=== PATIENT | female | born 1930 | race Caucasian/White ===

== ENCOUNTER → 2016-08-29 | Outpatient (CLI) | payer MEDICARE, OTHER | END | disposition home or self-care (01) | LOC: YCHH 08:22 | PROVIDERS: ATTEND Obstetrics & Gynecology | DX: D51.8 Other vitamin B12 deficiency anemias (principal); E03.9 Hypothyroidism, unspecified; J44.9 Chronic obstructive pulmonary disease, unspecified; I50.9 Heart failure, unspecified ==

== ENCOUNTER 2016-10-27 12:47 | Emergency (ER) | payer MEDICARE, OTHER ==
--- NOTE | 2016-10-27 13:06 | ED.PDOC ---
History of Present Illness - General Chief Complaint: Respiratory Problem Stated Complaint: Shortness of breath Time Seen by Provider: 10/27/16 12:57 Source: patient, RN notes reviewed, Vital Signs reviewed, EMS Exam Limitations: no limitations - History of Present Illness Initial Comments: Patient reports that she has been feeling bad for the past 2 days. Just no energy and sleeping a lot. Noticed her oxygen sat was low, 83%, so she used her O2 during the day when she normally only uses it at night. + cough. Vomited X1. Upper abdominal pain. No fever or chills. Timing/Duration: days - 2 Severity: moderate Activities at Onset: none Possible Cause: occasional episodes Improving Factors: nothing Worsening Factors: nothing Associated Symptoms: cough, weakness Respiratory Risk Factors: no cause identified Allergies/Adverse Reactions: Allergies Guaifenesin [From [place]] Allergy (Verified 06/23/14 08:05) Iron Allergy (Verified 06/23/14 08:05) Morphine [From MS Contin] Allergy (Verified 06/23/14 08:05) Pseudoephedrine [From Dynex] Allergy (Verified 06/23/14 08:05) Home Medications: Ambulatory Orders Aspirin [Aspir-81] 81 mg PO DAILY 09/10/12 Citalopram Hydrobromide [Celexa] 20 mg PO BID 09/10/12 Cyanocobalamin Inj [Vitamin B-12 Inj] 1,000 mcg IM PRN PRN 09/10/12 Esomeprazole [Nexium] 40 mg PO DAILY 09/10/12 Furosemide [Lasix] 20 mg PO DAILY 09/10/12 HYDROcodone 5MG/APAP 325MG [[place] 5/325] 1 ea PO Q6H PRN 09/10/12 Levothyroxine Sodium [Synthroid] 0.05 mg PO DAILY 09/10/12 Methocarbamol [Robaxin] 500 mg PO DAILY 09/10/12 Montelukast Sodium [Singulair] 10 mg PO DAILY 09/10/12 Pramipexole Dihydrochloride [Mirapex] 1 mg PO BID 09/10/12 Solifenacin Succinate [Vesicare] 5 mg PO DAILY 09/10/12 Valsartan [Diovan] 20 mg PO DAILY #0 09/10/12 Acetaminophen W/ Codeine [Tylenol W/ CODEINE #3] 1 ea PO Q4-6H PRN #14 Sulfamethoxazole-Trimethoprim [Bactrim Ds 800-160 mg] 1 tab PO BID #20 tab 02/02 Diclofenac Sodium (Topical) [Voltaren] 1 % TD DAILY PRN 02/27/16 Fluticasone Propionate (Nasal) [Flonase Allergy Relief Ch] 50 mcg NA DAILY 02/26 Metoclopramide Tab [Reglan] 5 mg PO QID PRN 02/27/16 Multiple Vitamins W/ Minerals [Centrum Adults] 1 tab PO DAILY 02/27/16 Potassium Chloride [K-Tab] 10 meq PO DAILY 02/27/16 Sulfa/Trimeth 800/160 (Ds) Tab [Bactrim DS Tab] 1 ea PO BID #20 tab 10/27/16 Review of Systems - Review of Systems Constitutional: States: malaise, weakness. Denies: chills, fever EENTM: States: no symptoms reported Respiratory: States: cough, short of breath Cardiology: States: no symptoms reported. Denies: chest pain, palpitations, syncope Gastrointestinal/Abdominal: States: abdominal pain, vomiting. Denies: diarrhea Genitourinary: States: no symptoms reported Musculoskeletal: States: no symptoms reported Skin: States: no symptoms reported Neurological: States: no symptoms reported Endocrine: States: no symptoms reported Past Medical History (General) - Patient Medical History Hx Seizures: No Hx Stroke: Yes Hx Dementia: No Hx Asthma: No Hx of COPD: Yes Hx Cardiac Disorders: No Hx Congestive Heart Failure: No Hx Pacemaker: No Hx Hypertension: Yes Hx Thyroid Disease: Yes Hx Diabetes: No Hx Gastroesophageal Reflux: No Hx Renal Disease: No Hx Cancer: No Hx of HIV: No Hx Hepatitis C: No Hx MRSA: No Surgical History: other - Vaccination History Hx Tetanus, Diphtheria Vaccination: Yes Hx Influenza Vaccination: Yes Hx Pneumococcal Vaccination: Yes - Social History Hx Tobacco Use: No Hx Chewing Tobacco Use: No Hx Alcohol Use: No Hx Substance Use: No Hx Substance Use Treatment: No Hx Depression: No Hx Physical Abuse: No Hx Emotional Abuse: No Hx Suspected Abuse: No - Female History Patient : Yes Family Medical History - Family History Mother Family History: Unknown Living Status: Physical Exam - Physical Exam General Appearance: Alert, Comfortable, No apparent distress, Well Developed, Well Groomed, Well Hydrated, Well Nourished Neck: non-tender, full range of motion, supple, normal inspection Respiratory: chest non-tender, lungs clear, normal breath sounds, no respiratory distress, no accessory muscle use Cardiovascular/Chest: normal peripheral pulses, regular rate, rhythm, no edema, no gallop, no JVD, no murmur Peripheral Pulses: posterior tibialis,right: 1+, posterior tibialis,left: 1+ Gastrointestinal/Abdominal: normal bowel sounds, soft, tenderness - epigastric Extremity: normal range of motion, non-tender, normal inspection, no pedal edema Neurologic: alert, normal mood/affect, oriented x 3 Skin Exam: normal color, warm/dry Comments: Vital Signs - 24 hr 10/27/16 10/27/16 10/27/16 12:51 13:00 14:34 Temperature 100.5 F H Pulse Rate [ 79 80 Left Radial] Respiratory 18 16 Rate Blood Pressure 144/58 155/80 [Left Arm] O2 Sat by Pulse 91 L 93 L Oximetry Progress - Results/Orders Results/Orders: Laboratory Tests 10/27/16 10/27/16 10/27/16 13:10 13:10 13:10 WBC 5.0 RBC 4.60 Hgb 12.6 Hct 38.6 MCV 83.8 MCH 27.3 MCHC 32.6 L RDW 15.2 H Plt Count 87 L MPV 7.6 Absolute Neuts (auto) 3.80 Absolute Lymphs (auto) 0.60 L Absolute Monos (auto) 0.50 Absolute Eos (auto) 0.00 Absolute Basos (auto) 0.00 Neutrophils % 75.8 Lymphocytes % 12.4 L Monocytes % 10.8 H Eosinophils % 0.3 L Basophils % 0.7 Sodium 135 Potassium 3.8 Chloride 100 L Carbon Dioxide 25 Anion Gap 13.8 BUN 17 Creatinine 0.73 BUN/Creatinine Ratio 23.3 H Random Glucose 109 H Serum Osmolality 272.2 L Calcium 9.2 Total Bilirubin 0.7 AST 23 ALT 26 Alkaline Phosphatase 45 B-Natriuretic Peptide 106.0 H Serum Total Protein 7.3 Albumin 3.9 Globulin 3.4 Albumin/Globulin Ratio 1.1 Amylase 19 L Lipase 22 Urine Color Urine Appearance Urine pH Ur Specific [place] Urine Protein Urine Glucose (UA) Urine Ketones Urine Blood Urine Nitrite Urine Bilirubin Urine Urobilinogen Ur Leukocyte Esterase Urine RBC Urine WBC Ur Epithelial Cells Amorphous Sediment Urine Bacteria 10/27/16 14:25 WBC RBC Hgb Hct MCV MCH MCHC RDW Plt Count MPV Absolute Neuts (auto) Absolute Lymphs (auto) Absolute Monos (auto) Absolute Eos (auto) Absolute Basos (auto) Neutrophils % Lymphocytes % Monocytes % Eosinophils % Basophils % Sodium Potassium Chloride Carbon Dioxide Anion Gap BUN Creatinine BUN/Creatinine Ratio Random Glucose Serum Osmolality Calcium Total Bilirubin AST ALT Alkaline Phosphatase B-Natriuretic Peptide Serum Total Protein Albumin Globulin Albumin/Globulin Ratio Amylase Lipase Urine Color Yellow Urine Appearance Cloudy Urine pH 6.5 Ur Specific [place] 1.020 Urine Protein Trace Urine Glucose (UA) Negative Urine Ketones 15 H Urine Blood Trace-intact H Urine Nitrite Positive H Urine Bilirubin Negative Urine Urobilinogen 1.0 Ur Leukocyte Esterase Trace H Urine RBC 3-5 H Urine WBC 20-30 H Ur Epithelial Cells 1-3 Amorphous Sediment 2+ Urine Bacteria 4+ H - EKG/XRAY/CT XRAY: chest - Enlarged heart and elevated R hemidiaphragm, unchanged from prior Departure - Departure Clinical Impression: UTI (urinary tract infection) Qualifiers: Urinary tract infection type: acute cystitis Hematuria presence: with hematuria Qualified Code(s): N30.01 - Acute cystitis with hematuria Time of Disposition: 14:48 Disposition: Discharge to Home or Self Care Condition: Good Departure Forms: ED Discharge - Pt. Copy, Patient Portal Self Enrollment Instructions: DI for Urinary Tract Infection (UTI) Diet: resume usual diet Activity: increase activity as tolerated Referrals: Mathieu Smiley MD [Primary Care Provider] - 1-2 Weeks Prescriptions: Sulfa/Trimeth 800/160 (Ds) Tab [Bactrim DS Tab] 1 ea PO BID #20 tab Home Medications: Ambulatory Orders Aspirin [Aspir-81] 81 mg PO DAILY 09/10/12 Citalopram Hydrobromide [Celexa] 20 mg PO BID 09/10/12 Cyanocobalamin Inj [Vitamin B-12 Inj] 1,000 mcg IM PRN PRN 09/10/12 Esomeprazole [Nexium] 40 mg PO DAILY 09/10/12 Furosemide [Lasix] 20 mg PO DAILY 09/10/12 HYDROcodone 5MG/APAP 325MG [[place] 5/325] 1 ea PO Q6H PRN 09/10/12 Levothyroxine Sodium [Synthroid] 0.05 mg PO DAILY 09/10/12 Methocarbamol [Robaxin] 500 mg PO DAILY 09/10/12 Montelukast Sodium [Singulair] 10 mg PO DAILY 09/10/12 Pramipexole Dihydrochloride [Mirapex] 1 mg PO BID 09/10/12 Solifenacin Succinate [Vesicare] 5 mg PO DAILY 09/10/12 Valsartan [Diovan] 20 mg PO DAILY #0 09/10/12 Acetaminophen W/ Codeine [Tylenol W/ CODEINE #3] 1 ea PO Q4-6H PRN #14 Sulfamethoxazole-Trimethoprim [Bactrim Ds 800-160 mg] 1 tab PO BID #20 tab 02/02 Diclofenac Sodium (Topical) [Voltaren] 1 % TD DAILY PRN 02/27/16 Fluticasone Propionate (Nasal) [Flonase Allergy Relief Ch] 50 mcg NA DAILY 02/26 Metoclopramide Tab [Reglan] 5 mg PO QID PRN 02/27/16 Multiple Vitamins W/ Minerals [Centrum Adults] 1 tab PO DAILY 02/27/16 Potassium Chloride [K-Tab] 10 meq PO DAILY 02/27/16 Sulfa/Trimeth 800/160 (Ds) Tab [Bactrim DS Tab] 1 ea PO BID #20 tab 10/27/16
[2016-10-27] MEDS ORDERED: ONDANSETRON INJ 4 MG/2 ML VIAL IV ONE (13:09)
[2016-10-27] MEDS ORDERED: ONDANSETRON ODT 8 MG TAB SL ONE (13:53)
--- NOTE | 2016-10-27 14:19 | RAD ---
EXAM DESCRIPTION: Chest,2 Views CLINICAL HISTORY: 86 years Female, cough/SOB/Hypoxia COMPARISON: 02/02/2016 IMPRESSION: The heart remains enlarged, without failure. Calcific plaque in the aortic arch. Elevation of the right hemidiaphragm with right basilar atelectasis again demonstrated. There is no new or confluent airspace consolidation, pleural effusion, or pneumothorax. [place] screws in the right humeral head. Multilevel degenerative changes in the thoracic spine. No acute osseous abnormality. Electronically signed by: Andres Bojorquez MD 10/27/2016 2:19 PM CDT
[2016-10-27] MEDS ORDERED: SULFA/TRIMETH 800/160 (DS) TAB 1 EA TAB PO ONE (14:51)
[2016-10-27 15:01] VITALS: BP 150/72; TEMP 98.2; O2SAT 95
== END 2016-10-27 15:01 | disposition home or self-care (01) ==
LOC: ER 12:47
DX: N30.01 Acute cystitis with hematuria (principal); J44.9 Chronic obstructive pulmonary disease, unspecified; E07.9 Disorder of thyroid, unspecified; I10 Essential (primary) hypertension; Z86.73 Personal history of transient ischemic attack (TIA), and cerebral infarction without residual deficits; Z88.8 Allergy status to other drugs, medicaments and biological substances; Z88.6 Allergy status to analgesic agent; Z79.82 Long term (current) use of aspirin; Z79.899 Other long term (current) drug therapy
CPT/HCPCS: 36415; 71020; 80053; 81001; 82150; 83690; 83880; 85025; 87086; 87088; 87186; J2405

== ENCOUNTER → 2016-11-23 | Outpatient (CLI) | payer MEDICARE, OTHER ==
--- NOTE | 2016-11-24 13:24 | MAM ---
History: Well woman exam. Date of exam: 11/23/2016 Services provided: Bilateral full field digital screening mammography. CAD, the images were reviewed with R2 computer aided detection. FINDINGS: Glandular tissue is scattered glandular contour. Comparison with 2013 exam. Surgical clips left breast. Scattered glandular pattern. No dominant mass, architectural distortion or clustered microcalcification. IMPRESSION: Benign exam Recommendation: Routine annual mammography BIRAD CATEGORY: 2 BENIGN Electronically signed by: Judi Smith MD 11/24/2016 1:24 PM CDT Workstation: [id number]
== END | disposition home or self-care (01) ==
LOC: MAMMO 08:46
PROVIDERS: ATTEND Obstetrics & Gynecology
DX: Z12.31 Encounter for screening mammogram for malignant neoplasm of breast (principal)

== ENCOUNTER → 2016-12-12 | Outpatient (CLI) | payer MEDICARE, OTHER | END | disposition home or self-care (01) | LOC: YCHH 12:07 | PROVIDERS: ATTEND Obstetrics & Gynecology | DX: D51.8 Other vitamin B12 deficiency anemias (principal); D51.9 Vitamin B12 deficiency anemia, unspecified ==

== ENCOUNTER 2016-12-14 13:02 | Emergency (ER) | payer MEDICARE, OTHER ==
--- NOTE | 2016-12-14 14:22 | RAD ---
EXAM DESCRIPTION: Chest,2 Views CLINICAL HISTORY: 86 years, Female, mid chest and back pain approx. t8 fall 1wk ago COMPARISON: October 27, 2016 FINDINGS: Adequate inspiratory effort. Stable chronic elevation right hemidiaphragm. Scattered fibrotic change. Osteopenic bones thoracic spine with mild degenerative change. Mild cardiomegaly. Right shoulder surgery. IMPRESSION: Stable mild chronic lung change and cardiomegaly. Electronically signed by: Jorge L Carranza MD 12/14/2016 2:21 PM CDT
--- NOTE | 2016-12-14 14:52 | ED.PDOC ---
History of Present Illness - General Chief Complaint: Back Pain or Injury Time Seen by Provider: 12/14/16 13:40 Source: patient Exam Limitations: no limitations - History of Present Illness Initial Comments: he patient is an 86-year-old female presenting to the emergency roomone week after a fall. She tripped and fell backwards and landed on her rear end and back. She had multiple areas that were sore over the week that the back pain surrounding approximately T8 and extending around her thorax has been the most persistent. No shortness of breath. No syncope or near syncope. No weakness or numbness of the lower extremities. No changes in sensation. No incontinence. No gross deformity upon exam. She does have some mild paraspinal tenderness in that area. Timing/Duration: 1 week Severity: moderate Improving Factors: immobilization Worsening Factors: movement Associated Symptoms: denies symptoms Allergies/Adverse Reactions: Allergies Guaifenesin [From Dynex] Allergy (Verified 06/23/14 08:05) Iron Allergy (Verified 06/23/14 08:05) Morphine [From MS Contin] Allergy (Verified 06/23/14 08:05) Pseudoephedrine [From Dynex] Allergy (Verified 06/23/14 08:05) Home Medications: Ambulatory Orders Aspirin [Aspir-81] 81 mg PO DAILY 09/10/12 Citalopram Hydrobromide [Celexa] 20 mg PO BID 09/10/12 Cyanocobalamin Inj [Vitamin B-12 Inj] 1,000 mcg IM PRN PRN 09/10/12 Esomeprazole [Nexium] 40 mg PO DAILY 09/10/12 Furosemide [Lasix] 20 mg PO DAILY 09/10/12 HYDROcodone 5MG/APAP 325MG [[place] 5/325] 1 ea PO Q6H PRN 09/10/12 Levothyroxine Sodium [Synthroid] 0.05 mg PO DAILY 09/10/12 Methocarbamol [Robaxin] 500 mg PO DAILY 09/10/12 Montelukast [Singulair] 10 mg PO DAILY 09/10/12 Pramipexole Dihydrochloride [Mirapex] 1 mg PO BID 09/10/12 Solifenacin Succinate [Vesicare] 5 mg PO DAILY 09/10/12 Acetaminophen W/ Codeine [Tylenol W/ CODEINE #3] 1 ea PO Q4-6H PRN #14 Diclofenac Sodium (Topical) [Voltaren] 1 % TD DAILY PRN 02/27/16 Fluticasone Propionate (Nasal) [Flonase Allergy Relief Ch] 50 mcg NA DAILY 02/26 Metoclopramide Tab [Reglan] 5 mg PO QID PRN 02/27/16 Multiple Vitamins W/ Minerals [Centrum Adults] 1 tab PO DAILY 02/27/16 Potassium Chloride [K-Tab] 10 meq PO DAILY 02/27/16 Nitrofurantoin Macrocrystal [Macrodantin] 50 mg PO DAILY 12/14/16 Ranitidine HCl [Ranitidine 75] 150 mg PO BEDTIME 12/14/16 Review of Systems - Review of Systems Review of Systems: 12/14/16 14:52 for changes in systems from their baseline symptoms Constitutional: States: no symptoms reported EENTM: States: no symptoms reported Respiratory: States: no symptoms reported Cardiology: States: no symptoms reported Gastrointestinal/Abdominal: States: no symptoms reported Genitourinary: States: no symptoms reported Musculoskeletal: States: back pain Skin: States: no symptoms reported Neurological: States: no symptoms reported Endocrine: States: no symptoms reported All other Systems: No Change from Baseline Past Medical History (General) - Patient Medical History Hx Seizures: No Hx Stroke: Yes Hx Dementia: No Hx Asthma: No Hx of COPD: Yes Hx Cardiac Disorders: No Hx Congestive Heart Failure: Yes Hx Pacemaker: No Hx Hypertension: Yes Hx Thyroid Disease: Yes Hx Diabetes: No Hx Gastroesophageal Reflux: No Hx Renal Disease: No Hx Cancer: No Hx of HIV: No Hx Hepatitis C: No Hx MRSA: No Surgical History: appendectomy, cholecystectomy - Vaccination History Hx Tetanus, Diphtheria Vaccination: No Hx Influenza Vaccination: Yes Hx Pneumococcal Vaccination: Yes Immunizations Up to Date: Yes - Social History Hx Tobacco Use: No Hx Chewing Tobacco Use: No Hx Alcohol Use: No Hx Substance Use: No Hx Substance Use Treatment: No Hx Depression: No Feels Threatened In Home Enviroment: No Hx Physical Abuse: No Hx Emotional Abuse: No Hx Suspected Abuse: No - Female History Patient is a Female of Child Bearing Age (10 -59 yrs old): No Patient : Yes Family Medical History - Family History Mother Family History: Unknown Living Status: Physical Exam - Physical Exam General Appearance: Alert, Comfortable, No apparent distress Eye Exam: bilateral normal Ears, Nose, Throat: hearing grossly normal, normal ENT inspection, normal pharynx Neck: non-tender, full range of motion, supple Respiratory: no respiratory distress, no accessory muscle use Cardiovascular/Chest: normal peripheral pulses, no edema, other - egular rate Peripheral Pulses: radial,right: 2+, radial,left: 2+, dorsalis pedis,right: 2+, dorsalis pedis,left: 2+ Gastrointestinal/Abdominal: non tender, soft Rectal Exam: deferred Back Exam: no vertebral tenderness, other - the patient does have some mild paraspinal tenderness around T8. No gross defformity. No obvious bruising. Extremity: normal range of motion, non-tender, normal inspection, no pedal edema , normal capillary refill Neurologic: looper operator II-XII nml as tested, no motor/sensory deficits - no change from baseline, alert, normal mood/affect, oriented x 3 Skin Exam: normal color Comments: Vital Signs - 24 hr 12/14/16 13:40 Temperature 97.0 F L Pulse Rate [ 83 Apical] Respiratory 18 Rate Blood Pressure 149/65 [Right Arm] O2 Sat by Pulse 95 Oximetry Progress - Progress Progress: 12/14/16 14:53 the patient is an 86-year-old female presenting to the emergency room secondary to thoracic back pain after a fall 1 week ago. X-ray shows no evidence of significant compression fracture or subluxation. No pneumothorax. No obvious fractures otherwise. She can continue her home pain medications and add Aleve 2 tablets twice daily with food for the next week. A heat pad may provide some relief. She should follow up with her primary care doctor in 1 week. ER warnings were given. - Results/Orders Results/Orders: two-view chest x-ray shows no evidence of acute bony pathology of the thoracic spine. No evidence of acute pulmonary pathology. Departure - Departure Clinical Impression: Acute upper back pain Disposition: Discharge to Home or Self Care Condition: Fair Departure Forms: ED Discharge - Pt. Copy, Patient Portal Self Enrollment Instructions: Back Pain (Alternative Therapy) Diet: regular diet Activity: increase activity as tolerated Referrals: Mathieu Smiley MD [Primary Care Provider] - 1-2 Weeks Home Medications: Ambulatory Orders Aspirin [Aspir-81] 81 mg PO DAILY 09/10/12 Citalopram Hydrobromide [Celexa] 20 mg PO BID 09/10/12 Cyanocobalamin Inj [Vitamin B-12 Inj] 1,000 mcg IM PRN PRN 09/10/12 Esomeprazole [Nexium] 40 mg PO DAILY 09/10/12 Furosemide [Lasix] 20 mg PO DAILY 09/10/12 HYDROcodone 5MG/APAP 325MG [[place] 5/325] 1 ea PO Q6H PRN 09/10/12 Levothyroxine Sodium [Synthroid] 0.05 mg PO DAILY 09/10/12 Methocarbamol [Robaxin] 500 mg PO DAILY 09/10/12 Montelukast [Singulair] 10 mg PO DAILY 09/10/12 Pramipexole Dihydrochloride [Mirapex] 1 mg PO BID 09/10/12 Solifenacin Succinate [Vesicare] 5 mg PO DAILY 09/10/12 Acetaminophen W/ Codeine [Tylenol W/ CODEINE #3] 1 ea PO Q4-6H PRN #14 Diclofenac Sodium (Topical) [Voltaren] 1 % TD DAILY PRN 02/27/16 Fluticasone Propionate (Nasal) [Flonase Allergy Relief Ch] 50 mcg NA DAILY 02/26 Metoclopramide Tab [Reglan] 5 mg PO QID PRN 02/27/16 Multiple Vitamins W/ Minerals [Centrum Adults] 1 tab PO DAILY 02/27/16 Potassium Chloride [K-Tab] 10 meq PO DAILY 02/27/16 Nitrofurantoin Macrocrystal [Macrodantin] 50 mg PO DAILY 12/14/16 Ranitidine HCl [Ranitidine 75] 150 mg PO BEDTIME 12/14/16 Additional Instructions: the patient is an 86-year-old female presenting to the emergency room secondary to thoracic back pain after a fall 1 week ago. X-ray shows no evidence of significant compression fracture or subluxation. No pneumothorax. No obvious fractures otherwise. She can continue her home pain medications and add Aleve 2 tablets twice daily with food for the next week. A heat pad may provide some relief. She should follow up with her primary care doctor in 1 week. ER warnings were given.
[2016-12-14 15:03] VITALS: BP 121/70; TEMP 98.1; O2SAT 96
== END 2016-12-14 15:05 | disposition home or self-care (01) ==
LOC: ER 13:02
DX: M54.6 Pain in thoracic spine (principal); J44.9 Chronic obstructive pulmonary disease, unspecified; I50.9 Heart failure, unspecified; E07.9 Disorder of thyroid, unspecified; I10 Essential (primary) hypertension; Z86.73 Personal history of transient ischemic attack (TIA), and cerebral infarction without residual deficits; Z79.82 Long term (current) use of aspirin; Z79.899 Other long term (current) drug therapy; Z88.5 Allergy status to narcotic agent; Z88.8 Allergy status to other drugs, medicaments and biological substances

== ENCOUNTER 2016-12-25 13:55 | Emergency (ER) | payer MEDICARE, OTHER ==
[2016-12-25] MEDS ORDERED: SUCRALFATE 1 GM/10 ML 1 GM UD PO ONE (14:09)
[2016-12-25] MEDS ORDERED: LIDOCAINE VIS-MYLANTA 30 ML UD PO ONE (14:09)
[2016-12-25] MEDS ORDERED: PANTOPRAZOLE SODIUM IV 40 MG VIAL IV ONE (14:09)
--- NOTE | 2016-12-25 14:45 | RAD ---
EXAM DESCRIPTION: Chest,2 Views CLINICAL HISTORY: epigastric pain COMPARISON: December 14, 2016 FINDINGS: Cardiac silhouette is within normal limits. There is no focal parenchymal or pleural disease. Eventration of the right hemidiaphragm is unchanged compared with the prior exam. EKG leads project over the chest. There is atherosclerosis. Loss of the normal vertebral body height of a mid thoracic vertebral body is unchanged compared with the prior examination. IMPRESSION: No evidence of acute cardiopulmonary disease. Electronically signed by: Sky Hays MD 12/25/2016 2:44 PM CDT
--- NOTE | 2016-12-25 14:46 | RAD ---
EXAM DESCRIPTION: Abdomen Flat Upright CLINICAL HISTORY: epigastric pain COMPARISON: None FINDINGS: Supine and upright images of the abdomen were submitted. EKG leads project over the abdomen. Surgical clips in the right upper quadrant compatible with prior cholecystectomy. Right hemidiaphragm contour is unchanged compared with prior chest radiograph. There is evidence of prior lumbar fusion. There is scoliosis. There is atherosclerosis. There is no free air in the abdomen. There is no evidence of bowel obstruction. IMPRESSION: No acute abnormalities. Electronically signed by: Sky Hays MD 12/25/2016 2:45 PM CDT
[2016-12-25] MEDS ORDERED: MAGNESIUM HYDROXIDE 30 ML UD PO ONE (15:31)
[2016-12-25] MEDS ORDERED: ACETAMINOPHEN-CAFF-BUTALBITAL 1 EA TAB PO ONE (15:32)
--- NOTE | 2016-12-25 15:35 | ED.PDOC ---
History of Present Illness - General Chief Complaint: Chest Pain/IN Stated Complaint: Chest discomfort Time Seen by Provider: 12/25/16 14:00 Source: patient Exam Limitations: no limitations - History of Present Illness Initial Comments: the patient is an 86-year-old female presenting to the emergency room secondary to midthoracic pain along with epigastric discomfort. Additionally she has had about a week's worth of constipation due to pain medications required for her back from a recent fall. The patient has run out of her Nexium as her insurance company has refused to allow them to be refilled. The patient has been taking Aleve for her back and the combination of running out of her stomach medications and taking the anti-inflammatory appears to have upset her stomach. She had one episode of vomiting yesterday. She has epigastric pain on palpation today. No rebound or peritoneal signs. The vomitus did not contain blood yesterday. No melanotic stools according to her. She is mainly constipated. Timing/Duration: 24 hours Severity: moderate Improving Factors: nothing Worsening Factors: nothing Associated Symptoms: loss of appetite, nausea/vomiting Allergies/Adverse Reactions: Allergies Guaifenesin [From Dynex] Allergy (Verified 12/25/16 14:37) Morphine [From MS Contin] Allergy (Verified 12/25/16 14:37) Pseudoephedrine [From Dynex] Allergy (Verified 12/25/16 14:37) Iron Adverse Reaction (Verified 12/25/16 14:37) Home Medications: Ambulatory Orders Aspirin [Aspir-81] 81 mg PO DAILY 09/10/12 Citalopram Hydrobromide [Celexa] 20 mg PO BID 09/10/12 Cyanocobalamin Inj [Vitamin B-12 Inj] 1,000 mcg IM PRN PRN 09/10/12 Esomeprazole [Nexium] 40 mg PO DAILY 09/10/12 Furosemide [Lasix] 20 mg PO DAILY 09/10/12 HYDROcodone 5MG/APAP 325MG [[place] 5/325] 1 ea PO Q6H PRN 09/10/12 Levothyroxine Sodium [Synthroid] 0.05 mg PO DAILY 09/10/12 Methocarbamol [Robaxin] 500 mg PO DAILY 09/10/12 Montelukast [Singulair] 10 mg PO DAILY 09/10/12 Pramipexole Dihydrochloride [Mirapex] 1 mg PO BID 09/10/12 Solifenacin Succinate [Vesicare] 5 mg PO DAILY 09/10/12 Acetaminophen W/ Codeine [Tylenol W/ CODEINE #3] 1 ea PO Q4-6H PRN #14 Diclofenac Sodium (Topical) [Voltaren] 1 % TD DAILY PRN 02/27/16 Fluticasone Propionate (Nasal) [Flonase Allergy Relief Ch] 50 mcg NA DAILY 02/26 Metoclopramide Tab [Reglan] 5 mg PO QID PRN 02/27/16 Multiple Vitamins W/ Minerals [Centrum Adults] 1 tab PO DAILY 02/27/16 Potassium Chloride [K-Tab] 10 meq PO DAILY 02/27/16 Nitrofurantoin Macrocrystal [Macrodantin] 50 mg PO DAILY 12/14/16 Ranitidine HCl [Ranitidine 75] 150 mg PO BEDTIME 12/14/16 Ddphyyrqqcmgv-Szal-Lmmhspchml [Fioricet] 1 ea PO Q8H PRN #21 tab 12/25/16 Famotidine 20 mg PO BID #120 tab 12/25/16 Sucralfate Tab [Carafate Tab] 1 gm PO QID #60 tab 12/25/16 Review of Systems - Review of Systems Constitutional: States: no symptoms reported EENTM: States: no symptoms reported Respiratory: States: no symptoms reported Cardiology: States: no symptoms reported Gastrointestinal/Abdominal: States: abdominal pain, constipation, nausea, vomiting Genitourinary: States: no symptoms reported Musculoskeletal: States: back pain Skin: States: no symptoms reported Neurological: States: no symptoms reported Endocrine: States: no symptoms reported All other Systems: No Change from Baseline Past Medical History (General) - Patient Medical History Hx Seizures: No Hx Stroke: Yes Hx Dementia: No Hx Asthma: No Hx of COPD: Yes Hx Cardiac Disorders: No Hx Congestive Heart Failure: Yes Hx Pacemaker: No Hx Hypertension: Yes Hx Thyroid Disease: Yes Hx Diabetes: No Hx Gastroesophageal Reflux: Yes Hx Renal Disease: No Hx Cancer: No Hx of HIV: No Hx Hepatitis C: No Hx MRSA: No Surgical History: appendectomy, cholecystectomy - Vaccination History Hx Tetanus, Diphtheria Vaccination: No Hx Influenza Vaccination: Yes - 2016 Hx Pneumococcal Vaccination: Yes - Social History Hx Tobacco Use: No Hx Chewing Tobacco Use: No Hx Alcohol Use: No Hx Substance Use: No Hx Substance Use Treatment: No Hx Depression: No Hx Physical Abuse: No Hx Emotional Abuse: No Hx Suspected Abuse: No - Female History Patient is a Female of Child Bearing Age (10 -59 yrs old): No Patient : Yes Family Medical History - Family History Mother Family History: Unknown Living Status: Hx Family Hypertension: Yes Physical Exam - Physical Exam General Appearance: Alert, Comfortable, No apparent distress Eye Exam: bilateral normal Ears, Nose, Throat: hearing grossly normal, normal ENT inspection, normal pharynx Neck: non-tender, full range of motion, supple Respiratory: chest non-tender, lungs clear, normal breath sounds, no respiratory distress, no accessory muscle use Cardiovascular/Chest: normal peripheral pulses, no edema, other - regular rate Peripheral Pulses: radial,right: 2+, radial,left: 2+, dorsalis pedis,right: 2+, dorsalis pedis,left: 2+ Gastrointestinal/Abdominal: soft, other - ild epigastric discomfort palpation. No rebound or peritoneal signs. No pulsatile palpable masses. Rectal Exam: deferred Back Exam: other - the patient still has some paraspinal tenderness adjacent to approximately T8 bilaterally. No visible deformity. No bruising. 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 This appears to be most likely due to running out of her Nexium as well as having to take anti-inflammatories for her back pain. The patient needs to hold on the Motrin and Aleve for now. She will be written for Fioricet for pain control. If her back pain persists more than another week then she needs to discuss with her primary care doctor obtaining a MRI of her thoracic spine. she will be written for Pepcid twice daily to help control her gastritis. She will also be written for Carafate for the next week. Maalox can be used additionally as needed. She does have some significant constipation on x-ray and is receiving a dose of milk of magnesia here today. She needs to keep well-hydrated. ER warnings were given for any significant worsening. Lab work looks reassuring. - Results/Orders Results/Orders: Laboratory Tests 12/25/16 12/25/16 12/25/16 14:10 14:10 14:10 WBC 4.1 L RBC 4.62 Hgb 12.6 Hct 38.7 MCV 83.7 MCH 27.3 MCHC 32.7 L RDW 15.5 H Plt Count 134 MPV 7.5 Absolute Neuts (auto) 2.30 Absolute Lymphs (auto) 1.30 Absolute Monos (auto) 0.40 Absolute Eos (auto) 0.10 Absolute Basos (auto) 0.00 Neutrophils % 56.1 Lymphocytes % 31.5 Monocytes % 8.7 Eosinophils % 2.6 Basophils % 1.1 PT 10.6 INR 0.940 PTT (SP) 39.3 H Sodium 141 Potassium 3.8 Chloride 103 Carbon Dioxide 29 Anion Gap 12.8 BUN 18 Creatinine 0.92 BUN/Creatinine Ratio 19.6 Random Glucose 119 H Serum Osmolality 284.3 Calcium 9.7 Magnesium 2.0 Total Bilirubin 0.6 AST 31 ALT 26 Alkaline Phosphatase 78 Creatine Kinase 42 CK-MB (CK-2) 2.0 CK-MB (CK-2) % Not Reportable Troponin I 0.03 B-Natriuretic Peptide 155.0 H Serum Total Protein 7.7 Albumin 4.1 Globulin 3.6 H Albumin/Globulin Ratio 1.1 Amylase 19 L Lipase < 14 L Urine Color Urine Appearance Urine pH Ur Specific [place] Urine Protein Urine Glucose (UA) Urine Ketones Urine Blood Urine Nitrite Urine Bilirubin Urine Urobilinogen Ur Leukocyte Esterase Urine RBC Urine WBC Ur Epithelial Cells Urine Bacteria 12/25/16 14:26 WBC RBC Hgb Hct MCV MCH MCHC RDW Plt Count MPV Absolute Neuts (auto) Absolute Lymphs (auto) Absolute Monos (auto) Absolute Eos (auto) Absolute Basos (auto) Neutrophils % Lymphocytes % Monocytes % Eosinophils % Basophils % PT INR PTT (SP) Sodium Potassium Chloride Carbon Dioxide Anion Gap BUN Creatinine BUN/Creatinine Ratio Random Glucose Serum Osmolality Calcium Magnesium Total Bilirubin AST ALT Alkaline Phosphatase Creatine Kinase CK-MB (CK-2) CK-MB (CK-2) % Troponin I B-Natriuretic Peptide Serum Total Protein Albumin Globulin Albumin/Globulin Ratio Amylase Lipase Urine Color Yellow Urine Appearance Sl cloudy Urine pH 7.0 Ur Specific [place] 1.015 Urine Protein Negative Urine Glucose (UA) Negative Urine Ketones Negative Urine Blood Negative Urine Nitrite Positive H Urine Bilirubin Negative Urine Urobilinogen 0.2 Ur Leukocyte Esterase Trace H Urine RBC 0 Urine WBC 1-3 Ur Epithelial Cells 1-3 Urine Bacteria 2+ H EKG showed normal sinus rhythm. Chronic changes include poor R-wave progression and Q waves in lead 3. No significant QT prolongation. FL interval is prolonged. No acute ST segment changes concerning for ischemia when compared to previous EKGs. Chest x-ray shows chronic right hemidiaphragm elevation. There has been no progression of loss of height of thoracic vertebra since x-ray a week or 2 ago. Departure - Departure Clinical Impression: Gastritis Constipation Qualifiers: Constipation type: slow transit constipation Qualified Code(s): K59.01 - Slow transit constipation Disposition: Discharge to Home or Self Care Condition: Fair Departure Forms: ED Discharge - Pt. Copy, Patient Portal Self Enrollment Instructions: DI for Gastritis, DI for Constipation Diet: bland diet Activity: increase activity as tolerated Referrals: Mathieu Smiley MD [Primary Care Provider] - 1-5 Days Prescriptions: Wptfcawivoqtn-Upyr-Npgtpqrgkf [Fioricet] 1 ea PO Q8H PRN #21 tab PRN Reason: Pain Famotidine 20 mg PO BID #120 tab Sucralfate Tab [Carafate Tab] 1 gm PO QID #60 tab Home Medications: Ambulatory Orders Aspirin [Aspir-81] 81 mg PO DAILY 09/10/12 Citalopram Hydrobromide [Celexa] 20 mg PO BID 09/10/12 Cyanocobalamin Inj [Vitamin B-12 Inj] 1,000 mcg IM PRN PRN 09/10/12 Esomeprazole [Nexium] 40 mg PO DAILY 09/10/12 Furosemide [Lasix] 20 mg PO DAILY 09/10/12 HYDROcodone 5MG/APAP 325MG [[place] 5/325] 1 ea PO Q6H PRN 09/10/12 Levothyroxine Sodium [Synthroid] 0.05 mg PO DAILY 09/10/12 Methocarbamol [Robaxin] 500 mg PO DAILY 09/10/12 Montelukast [Singulair] 10 mg PO DAILY 09/10/12 Pramipexole Dihydrochloride [Mirapex] 1 mg PO BID 09/10/12 Solifenacin Succinate [Vesicare] 5 mg PO DAILY 09/10/12 Acetaminophen W/ Codeine [Tylenol W/ CODEINE #3] 1 ea PO Q4-6H PRN #14 Diclofenac Sodium (Topical) [Voltaren] 1 % TD DAILY PRN 02/27/16 Fluticasone Propionate (Nasal) [Flonase Allergy Relief Ch] 50 mcg NA DAILY 02/26 Metoclopramide Tab [Reglan] 5 mg PO QID PRN 02/27/16 Multiple Vitamins W/ Minerals [Centrum Adults] 1 tab PO DAILY 02/27/16 Potassium Chloride [K-Tab] 10 meq PO DAILY 02/27/16 Nitrofurantoin Macrocrystal [Macrodantin] 50 mg PO DAILY 12/14/16 Ranitidine HCl [Ranitidine 75] 150 mg PO BEDTIME 12/14/16 Pbhquroarxrnr-Nnms-Vvwxxhguza [Fioricet] 1 ea PO Q8H PRN #21 tab 12/25/16 Famotidine 20 mg PO BID #120 tab 12/25/16 Sucralfate Tab [Carafate Tab] 1 gm PO QID #60 tab 12/25/16 Additional Instructions: the patient is an 86-year-old female presenting to the emergency room secondary to epigastric pain. This appears to be most likely due to running out of her Nexium as well as having to take anti-inflammatories for her back pain. The patient needs to hold on the Motrin and Aleve for now. She will be written for Fioricet for pain control. If her back pain persists more than another week then she needs to discuss with her primary care doctor obtaining a MRI of her thoracic spine. she will be written for Pepcid twice daily to help control her gastritis. She will also be written for Carafate for the next week. Maalox can be used additionally as needed. She does have some significant constipation on x-ray and is receiving a dose of milk of magnesia here today. She needs to keep well-hydrated. ER warnings were given for any significant worsening. Lab work looks reassuring.
[2016-12-25 16:02] VITALS: BP 135/58; TEMP 98; O2SAT 94
== END 2016-12-25 15:50 | disposition home or self-care (01) ==
LOC: ER 13:55
DX: K29.70 Gastritis, unspecified, without bleeding (principal); K59.01 Slow transit constipation; J44.9 Chronic obstructive pulmonary disease, unspecified; I11.0 Hypertensive heart disease with heart failure; I50.9 Heart failure, unspecified; E07.9 Disorder of thyroid, unspecified; K21.9 Gastro-esophageal reflux disease without esophagitis; Z88.6 Allergy status to analgesic agent; Z88.8 Allergy status to other drugs, medicaments and biological substances; Z79.82 Long term (current) use of aspirin; Z79.899 Other long term (current) drug therapy; Z86.73 Personal history of transient ischemic attack (TIA), and cerebral infarction without residual deficits

== ENCOUNTER 2017-01-05 21:30 | Emergency (ER) | payer MEDICARE, OTHER ==
[2017-01-05 21:46] VITALS: TEMP 98.7
[2017-01-05] MEDS ORDERED: FLUCONAZOLE 100 MG TAB PO ONE (22:57)
[2017-01-05] MEDS ORDERED: cefTRIAXone SODIUM 1 GM VIAL IM ONE (22:58)
[2017-01-05] MEDS ORDERED: CIPROFLOXACIN 500 MG TAB PO ONE (22:58)
--- NOTE | 2017-01-05 23:01 | ED.PDOC ---
History of Present Illness - General Chief Complaint: General Stated Complaint: painful urination Time Seen by Provider: 01/05/17 21:41 Source: patient Exam Limitations: no limitations - History of Present Illness Initial Comments: The patient is an 86-year-old female presenting to the emergency room secondary to symptoms of recurrent cystitis. The patient has had 2 previous urinary tract infections in the last 3 months. She has grown out Klebsiella and Escherichia coli. The patient has no definite fevers and no evidence of sepsis. Symptoms have been recurrent for the last 24-48 hours. The patient just completed her ciprofloxacin from her last urinary tract infection a couple of days ago. Timing/Duration: 24 hours Severity: mild Improving Factors: nothing Worsening Factors: nothing Associated Symptoms: denies symptoms Allergies/Adverse Reactions: Allergies Guaifenesin [From Dynex] Allergy (Verified 01/05/17 21:46) Morphine [From MS Contin] Allergy (Verified 01/05/17 21:46) Pseudoephedrine [From Dynex] Allergy (Verified 01/05/17 21:46) Iron Adverse Reaction (Verified 01/05/17 21:46) Home Medications: Ambulatory Orders Aspirin [Aspir-81] 81 mg PO DAILY 09/10/12 Citalopram Hydrobromide [Celexa] 20 mg PO BID 09/10/12 Cyanocobalamin Inj [Vitamin B-12 Inj] 1,000 mcg IM PRN PRN 09/10/12 Esomeprazole [Nexium] 40 mg PO DAILY 09/10/12 Furosemide [Lasix] 20 mg PO DAILY 09/10/12 HYDROcodone 5MG/APAP 325MG [[place] 5/325] 1 ea PO Q6H PRN 09/10/12 Levothyroxine Sodium [Synthroid] 0.05 mg PO DAILY 09/10/12 Methocarbamol [Robaxin] 500 mg PO DAILY 09/10/12 Montelukast [Singulair] 10 mg PO DAILY 09/10/12 Pramipexole Dihydrochloride [Mirapex] 1 mg PO BID 09/10/12 Solifenacin Succinate [Vesicare] 5 mg PO DAILY 09/10/12 Acetaminophen W/ Codeine [Tylenol W/ CODEINE #3] 1 ea PO Q4-6H PRN #14 Diclofenac Sodium (Topical) [Voltaren] 1 % TD DAILY PRN 02/27/16 Fluticasone Propionate (Nasal) [Flonase Allergy Relief Ch] 50 mcg NA DAILY 02/26 Metoclopramide Tab [Reglan] 5 mg PO QID PRN 02/27/16 Multiple Vitamins W/ Minerals [Centrum Adults] 1 tab PO DAILY 02/27/16 Potassium Chloride [K-Tab] 10 meq PO DAILY 02/27/16 Nitrofurantoin Macrocrystal [Macrodantin] 50 mg PO DAILY 12/14/16 Ranitidine HCl [Ranitidine 75] 150 mg PO BEDTIME 12/14/16 Aqtobflsummxg-Ojer-Ywaagquzsh [Fioricet] 1 ea PO Q8H PRN #21 tab 12/25/16 Famotidine 20 mg PO BID #120 tab 12/25/16 Sucralfate Tab [Carafate Tab] 1 gm PO QID #60 tab 12/25/16 Cephalexin Monohydrate [Keflex] 500 mg PO Q8H #30 cap 01/05/17 Ciprofloxacin [Cipro] 500 mg PO BID #20 tab 01/05/17 Fluconazole [Diflucan Tab] 100 mg PO DAILY #3 tab 01/05/17 Review of Systems - Review of Systems Constitutional: States: no symptoms reported EENTM: States: no symptoms reported Respiratory: States: no symptoms reported Cardiology: States: no symptoms reported Gastrointestinal/Abdominal: States: no symptoms reported Genitourinary: States: see HPI, dysuria, frequency, pain Musculoskeletal: States: no symptoms reported Skin: States: no symptoms reported Neurological: States: no symptoms reported Endocrine: States: no symptoms reported All other Systems: No Change from Baseline Past Medical History (General) - Patient Medical History Hx Seizures: No Hx Stroke: Yes Hx Dementia: No Hx Asthma: No Hx of COPD: Yes Hx Cardiac Disorders: Yes Hx Congestive Heart Failure: Yes Hx Pacemaker: No Hx Hypertension: Yes Hx Thyroid Disease: Yes Hx Diabetes: No Hx Gastroesophageal Reflux: Yes Hx Renal Disease: No Hx Cancer: No Hx of HIV: No Hx Hepatitis C: No Hx MRSA: No Surgical History: appendectomy, cholecystectomy - Vaccination History Hx Tetanus, Diphtheria Vaccination: No Hx Influenza Vaccination: Yes - 2016 Hx Pneumococcal Vaccination: Yes Immunizations Up to Date: No - Social History Hx Tobacco Use: No Hx Chewing Tobacco Use: No Hx Alcohol Use: No Hx Substance Use: No Hx Substance Use Treatment: No Hx Depression: No Feels Threatened In Home Enviroment: No Feels Threatened In a Relationship: No Hx Physical Abuse: No Hx Emotional Abuse: No Hx Suspected Abuse: No - Female History Patient : Yes Family Medical History - Family History Mother Family History: Unknown Living Status: Hx Family Hypertension: Yes Physical Exam - Physical Exam General Appearance: Alert, Anxious, No apparent distress Eye Exam: bilateral normal Ears, Nose, Throat: normal ENT inspection Neck: full range of motion Respiratory: no respiratory distress, no accessory muscle use Cardiovascular/Chest: normal peripheral pulses, no edema Peripheral Pulses: radial,right: 2+, radial,left: 2+ Gastrointestinal/Abdominal: non tender, soft Rectal Exam: deferred Back Exam: no CVA tenderness Extremity: normal range of motion, non-tender, normal inspection, no pedal edema , normal capillary refill 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 The patient is going to be placed on both Keflex and ciprofloxacin based on her last 2 urine cultures. Additionally she does have budding yeast in her urine and will be placed on 2 more days of oral Diflucan. She does need to follow-up with her primary care doctor early next week for culture results from this time. ER warnings were given for any acute worsening. The patient is given a dose of ciprofloxacin, Rocephin and Diflucan here tonight. She does need to keep well-hydrated. - Results/Orders Results/Orders: Laboratory Tests 01/05/17 22:00 Urine Color Yellow Urine Appearance Sl cloudy Urine pH 6.0 Ur Specific [place] >= 1.030 Urine Protein 100 H Urine Glucose (UA) Negative Urine Ketones Negative Urine Blood Moderate H Urine Nitrite Negative Urine Bilirubin Negative Urine Urobilinogen 0.2 Ur Leukocyte Esterase Small H Urine RBC 5-10 H Urine WBC >100 H Ur Epithelial Cells 5-10 Urine Bacteria 2+ H Urine Yeast 2+ budding H Departure - Departure Clinical Impression: Recurrent bacterial cystitis Disposition: Discharge to Home or Self Care Condition: Fair Departure Forms: ED Discharge - Pt. Copy, Patient Portal Self Enrollment Instructions: DI for Urinary Tract Infection (UTI) Diet: regular diet Activity: increase activity as tolerated Referrals: Mathieu Smiley MD [Primary Care Provider] - 1-5 Days Prescriptions: Cephalexin Monohydrate [Keflex] 500 mg PO Q8H #30 cap Ciprofloxacin [Cipro] 500 mg PO BID #20 tab Fluconazole [Diflucan Tab] 100 mg PO DAILY #3 tab Home Medications: Ambulatory Orders Aspirin [Aspir-81] 81 mg PO DAILY 09/10/12 Citalopram Hydrobromide [Celexa] 20 mg PO BID 09/10/12 Cyanocobalamin Inj [Vitamin B-12 Inj] 1,000 mcg IM PRN PRN 09/10/12 Esomeprazole [Nexium] 40 mg PO DAILY 09/10/12 Furosemide [Lasix] 20 mg PO DAILY 09/10/12 HYDROcodone 5MG/APAP 325MG [[place] 5/325] 1 ea PO Q6H PRN 09/10/12 Levothyroxine Sodium [Synthroid] 0.05 mg PO DAILY 09/10/12 Methocarbamol [Robaxin] 500 mg PO DAILY 09/10/12 Montelukast [Singulair] 10 mg PO DAILY 09/10/12 Pramipexole Dihydrochloride [Mirapex] 1 mg PO BID 09/10/12 Solifenacin Succinate [Vesicare] 5 mg PO DAILY 09/10/12 Acetaminophen W/ Codeine [Tylenol W/ CODEINE #3] 1 ea PO Q4-6H PRN #14 Diclofenac Sodium (Topical) [Voltaren] 1 % TD DAILY PRN 02/27/16 Fluticasone Propionate (Nasal) [Flonase Allergy Relief Ch] 50 mcg NA DAILY 02/26 Metoclopramide Tab [Reglan] 5 mg PO QID PRN 02/27/16 Multiple Vitamins W/ Minerals [Centrum Adults] 1 tab PO DAILY 02/27/16 Potassium Chloride [K-Tab] 10 meq PO DAILY 02/27/16 Nitrofurantoin Macrocrystal [Macrodantin] 50 mg PO DAILY 12/14/16 Ranitidine HCl [Ranitidine 75] 150 mg PO BEDTIME 12/14/16 Njeuevjwwkovj-Uyan-Culdocuith [Fioricet] 1 ea PO Q8H PRN #21 tab 12/25/16 Famotidine 20 mg PO BID #120 tab 12/25/16 Sucralfate Tab [Carafate Tab] 1 gm PO QID #60 tab 12/25/16 Cephalexin Monohydrate [Keflex] 500 mg PO Q8H #30 cap 01/05/17 Ciprofloxacin [Cipro] 500 mg PO BID #20 tab 01/05/17 Fluconazole [Diflucan Tab] 100 mg PO DAILY #3 tab 01/05/17 Additional Instructions: the patient is an 86-year-old female presenting secondary to recurrent symptoms of cystitis. The patient is going to be placed on both Keflex and ciprofloxacin based on her last 2 urine cultures. Additionally she does have budding yeast in her urine and will be placed on 2 more days of oral Diflucan. She does need to follow-up with her primary care doctor early next week for culture results from this time. ER warnings were given for any acute worsening. The patient is given a dose of ciprofloxacin, Rocephin and Diflucan here tonight. She does need to keep well-hydrated.
[2017-01-05 23:17] VITALS: BP 157/63; O2SAT 93
== END 2017-01-05 23:17 | disposition home or self-care (01) ==
LOC: ER 21:30
DX: N30.90 Cystitis, unspecified without hematuria (principal); B96.89 Other specified bacterial agents as the cause of diseases classified elsewhere; J44.9 Chronic obstructive pulmonary disease, unspecified; I11.0 Hypertensive heart disease with heart failure; I50.9 Heart failure, unspecified; E07.9 Disorder of thyroid, unspecified; K21.9 Gastro-esophageal reflux disease without esophagitis; Z88.6 Allergy status to analgesic agent; Z88.8 Allergy status to other drugs, medicaments and biological substances; Z79.82 Long term (current) use of aspirin; Z79.899 Other long term (current) drug therapy

== ENCOUNTER → 2017-01-20 | Outpatient (CLI) | payer MEDICARE, OTHER ==
--- NOTE | 2017-01-23 08:40 | RAD ---
EXAM DESCRIPTION: Humerus,Left CLINICAL HISTORY: 86 years, Female, PAIN IN LEFT ARM COMPARISON: None. FINDINGS: Left humerus demonstrates no fracture or other acute bony abnormalities. Soft tissues unremarkable. IMPRESSION: Unremarkable left humerus Electronically signed by: Masoud Meza MD 01/23/2017 8:39 AM CDT
== END | disposition home or self-care (01) ==
LOC: RAD 09:49
PROVIDERS: ATTEND Orthopaedic Surgery
DX: M79.602 Pain in left arm (principal)

== ENCOUNTER → 2017-02-27 | Outpatient (CLI) | payer MEDICARE, OTHER | END | disposition home or self-care (01) | LOC: YCHH 08:31 | PROVIDERS: ATTEND Obstetrics & Gynecology | DX: E03.9 Hypothyroidism, unspecified (principal); D51.8 Other vitamin B12 deficiency anemias; D53.9 Nutritional anemia, unspecified; I10 Essential (primary) hypertension ==

== ENCOUNTER 2017-04-06 17:01 | Emergency (ER) | payer MEDICARE, OTHER ==
--- NOTE | 2017-04-06 17:22 | ED.PDOC ---
History of Present Illness - General Chief Complaint: Trauma Stated Complaint: fall Time Seen by Provider: 04/06/17 17:22 Source: patient Exam Limitations: no limitations - History of Present Illness Initial Comments: Dorothea Allen 87 y/o female state that she stubbed her toe on a rock lost her balance fell and scraped right side of her face she also has dull pain on her right hip.Denies LOC,neck pain or blurry vision. Occurred: just prior to arrival Injuries/Pain Location: face, other - pain right hip Reason for Fall: lost balance Loss of Consciousness: no loss of consciousness Improving Factors: nothing Worsening Factors: nothing Associated Symptoms (Fall): denies symptoms Allergies/Adverse Reactions: Allergies Guaifenesin [From Dynex] Allergy (Verified 01/05/17 21:46) Latex Allergy (Verified 04/06/17 17:20) Morphine [From MS Contin] Allergy (Verified 01/05/17 21:46) Pseudoephedrine [From Dynex] Allergy (Verified 01/05/17 21:46) Iron Adverse Reaction (Verified 01/05/17 21:46) Home Medications: Ambulatory Orders Aspirin [Aspir-81] 81 mg PO DAILY 09/10/12 Citalopram Hydrobromide [Celexa] 20 mg PO BID 09/10/12 Cyanocobalamin Inj [Vitamin B-12 Inj] 1,000 mcg IM PRN PRN 09/10/12 Esomeprazole [Nexium] 40 mg PO DAILY 09/10/12 Furosemide [Lasix] 20 mg PO DAILY 09/10/12 HYDROcodone 5MG/APAP 325MG [[employer] 5/325] 1 ea PO Q6H PRN 09/10/12 Levothyroxine Sodium [Synthroid] 0.05 mg PO DAILY 09/10/12 Methocarbamol [Robaxin] 500 mg PO DAILY 09/10/12 Montelukast [Singulair] 10 mg PO DAILY 09/10/12 Pramipexole Dihydrochloride [Mirapex] 1 mg PO BID 09/10/12 Solifenacin Succinate [Vesicare] 5 mg PO DAILY 09/10/12 Acetaminophen W/ Codeine [Tylenol W/ CODEINE #3] 1 ea PO Q4-6H PRN #14 Diclofenac Sodium (Topical) [Voltaren] 1 % TD DAILY PRN 02/27/16 Fluticasone Propionate (Nasal) [Flonase Allergy Relief Ch] 50 mcg NA DAILY 02/26 Metoclopramide Tab [Reglan] 5 mg PO QID PRN 02/27/16 Multiple Vitamins W/ Minerals [Centrum Adults] 1 tab PO DAILY 02/27/16 Potassium Chloride [K-Tab] 10 meq PO DAILY 02/27/16 Nitrofurantoin Macrocrystal [Macrodantin] 50 mg PO DAILY 12/14/16 Ranitidine HCl [Ranitidine 75] 150 mg PO BEDTIME 12/14/16 Cyujudawqnhxr-Ebem-Ulacbymkdu [Fioricet] 1 ea PO Q8H PRN #21 tab 12/25/16 Famotidine 20 mg PO BID #120 tab 12/25/16 Sucralfate Tab [Carafate Tab] 1 gm PO QID #60 tab 12/25/16 Cephalexin Monohydrate [Keflex] 500 mg PO Q8H #30 cap 01/05/17 Ciprofloxacin [Cipro] 500 mg PO BID #20 tab 01/05/17 Fluconazole [Diflucan Tab] 100 mg PO DAILY #3 tab 01/05/17 Review of Systems - Review of Systems Constitutional: States: no symptoms reported EENTM: States: no symptoms reported Respiratory: States: no symptoms reported Cardiology: States: no symptoms reported Musculoskeletal: States: see HPI Skin: States: see HPI Past Medical History (General) - Patient Medical History Hx Seizures: No Hx Stroke: Yes Hx Dementia: No Hx Asthma: No Hx of COPD: Yes Hx Cardiac Disorders: Yes Hx Congestive Heart Failure: Yes Hx Pacemaker: No Hx Hypertension: Yes Hx Thyroid Disease: Yes Hx Diabetes: No Hx Gastroesophageal Reflux: Yes Hx Renal Disease: No Hx Cancer: No Hx of HIV: No Hx Hepatitis C: No Hx MRSA: No Surgical History: appendectomy, cholecystectomy, other - hips,knee,hysterectomy - Vaccination History Hx Tetanus, Diphtheria Vaccination: No Hx Influenza Vaccination: Yes - 2016 Hx Pneumococcal Vaccination: Yes - Social History Hx Tobacco Use: No Hx Chewing Tobacco Use: No Hx Alcohol Use: No Hx Substance Use: No Hx Substance Use Treatment: No Hx Depression: No Hx Physical Abuse: No Hx Emotional Abuse: No Hx Suspected Abuse: No - Activities of Daily Living Patient Lives Alone: No - family Grooming Ability: Independent Eating (Feeding) Ability: Independent Toileting Ability: Independent - Female History Patient : No - postmenopausal Physical Exam - Physical Exam General Appearance: Alert, No apparent distress Head Injury: other - Face-superficial abrasion right cheek and forehead Eye Exam: bilateral normal ENT Exam: hearing grossly normal, no evidence of ENT injury, no dental injury Peripheral Pulses: radial,right: 2+, radial,left: 2+ Cardiovascular/Respiratory: normal peripheral pulses, no respiratory distress Gastrointestinal/Abdominal: non tender, soft, no organomegaly Back Exam: normal inspection, no CVA tenderness, no vertebral tenderness Extremity Exam: pelvis stable, bony-point tenderness - right hip/pelvis Neurologic: alert, oriented x 3 Skin Exam: normal color, warm/dry, other - superficial abrasions right cheek and forehead - [place] Coma Score Best Eye Response (Fayette): (4) open spontaneously Best Verbal Response (Fayette): (5) oriented Best Motor Response (Jennifer): (6) obeys commands Jennifer Total: 15 Progress - Progress Progress: 04/06/17 18:48 Vital Signs - 8 hr 04/06/17 18:00 Pulse Rate [ 74 right brachial] Respiratory 14 Rate Blood Pressure 164/76 [left brachial] O2 Sat by Pulse 89 L Oximetry - EKG/XRAY/CT XRAY: hip - no fracture ;right hip no fracture Departure - Departure Clinical Impression: Abrasion, cheek w/o infection Fall Qualifiers: Encounter type: initial encounter Qualified Code(s): W19.XXXA - Unspecified fall, initial encounter Forehead abrasion Qualifiers: Encounter type: initial encounter Qualified Code(s): S00.81XA - Abrasion of other part of head, initial encounter Pain, joint, pelvic region Qualifiers: Laterality: right Qualified Code(s): M25.551 - Pain in right hip Time of Disposition: 18:49 Disposition: Discharge to Home or Self Care Departure Forms: ED Discharge - Pt. Copy, Patient Portal Self Enrollment Instructions: DI for Abrasion Referrals: Mathieu Smiley MD [Primary Care Provider] - 1-2 Weeks Home Medications: Ambulatory Orders Aspirin [Aspir-81] 81 mg PO DAILY 09/10/12 Citalopram Hydrobromide [Celexa] 20 mg PO BID 09/10/12 Cyanocobalamin Inj [Vitamin B-12 Inj] 1,000 mcg IM PRN PRN 09/10/12 Esomeprazole [Nexium] 40 mg PO DAILY 09/10/12 Furosemide [Lasix] 20 mg PO DAILY 09/10/12 HYDROcodone 5MG/APAP 325MG [[employer] 5/325] 1 ea PO Q6H PRN 09/10/12 Levothyroxine Sodium [Synthroid] 0.05 mg PO DAILY 09/10/12 Methocarbamol [Robaxin] 500 mg PO DAILY 09/10/12 Montelukast [Singulair] 10 mg PO DAILY 09/10/12 Pramipexole Dihydrochloride [Mirapex] 1 mg PO BID 09/10/12 Solifenacin Succinate [Vesicare] 5 mg PO DAILY 09/10/12 Acetaminophen W/ Codeine [Tylenol W/ CODEINE #3] 1 ea PO Q4-6H PRN #14 Diclofenac Sodium (Topical) [Voltaren] 1 % TD DAILY PRN 02/27/16 Fluticasone Propionate (Nasal) [Flonase Allergy Relief Ch] 50 mcg NA DAILY 02/26 Metoclopramide Tab [Reglan] 5 mg PO QID PRN 02/27/16 Multiple Vitamins W/ Minerals [Centrum Adults] 1 tab PO DAILY 02/27/16 Potassium Chloride [K-Tab] 10 meq PO DAILY 02/27/16 Nitrofurantoin Macrocrystal [Macrodantin] 50 mg PO DAILY 12/14/16 Ranitidine HCl [Ranitidine 75] 150 mg PO BEDTIME 12/14/16 Dgdsbvfqgyymy-Ddgy-Wpffalzsio [Fioricet] 1 ea PO Q8H PRN #21 tab 12/25/16 Famotidine 20 mg PO BID #120 tab 12/25/16 Sucralfate Tab [Carafate Tab] 1 gm PO QID #60 tab 12/25/16 Cephalexin Monohydrate [Keflex] 500 mg PO Q8H #30 cap 01/05/17 Ciprofloxacin [Cipro] 500 mg PO BID #20 tab 01/05/17 Fluconazole [Diflucan Tab] 100 mg PO DAILY #3 tab 01/05/17 Additional Instructions: May use ice pack to affected area ten minutes 3 x a day during waking hours until better;Return to emergency room as needed;May take Tylenol 500mg one tablet 3 x a day as needed for pain
[2017-04-06] MEDS ORDERED: NEOMYCIN-BACITRACIN-POLYMYXIN 0.9 GM UD TOP ONE (17:30)
--- NOTE | 2017-04-06 18:10 | RAD ---
PROCEDURE: Orbits CLINICAL HISTORY: fall INDICATION: Same as above COMPARISON: None . TECHNIQUE: 3.0 Views of the bilateral orbits were done. FINDINGS: There is no evidence of acute fractures or dislocation involving the right or left orbital bones. The bilateral orbital margins, visualized facial bones, including the nasal bones appear intact. There is no visualization of air-fluid levels in the visualized paranasal sinuses. There is no visualization of any radiopaque foreign bodies in the outline of the bilateral orbits. The visualized soft tissues are radiographically unremarkable. IMPRESSION: Unremarkable bilateral orbits Place of interpretation: Teleradiology. Electronically signed by: Sanjeev Murray MD 04/06/2017 6:09 PM CDT Workstation: [id number]
--- NOTE | 2017-04-06 18:20 | RAD ---
EXAM DESCRIPTION: Hip, right 2 Views (accession [id number]), Pelvis,2 or More Views (accession [id number]) CLINICAL HISTORY: 87 years Female fall COMPARISON: None. TECHNIQUE: Two views of the pelvis and two views of the right hip. FINDINGS: There are changes from right hip arthroplasty. The surgical hardware appears intact. No acute fracture or dislocation is identified. There is mild curvature in the lumbar spine convex left with degenerative changes. There are postsurgical changes in the lower lumbar spine. There are degenerative changes involving the SI joints. IMPRESSION: No acute fracture is identified. CT or MRI could be obtained to better evaluate if there is continued clinical concern. Electronically signed by: Mohamud Laureano MD 04/06/2017 6:19 PM CDT Workstation: [employer]
--- NOTE | 2017-04-06 18:20 | RAD ---
EXAM DESCRIPTION: Hip, right 2 Views (accession [id number]), Pelvis,2 or More Views (accession [id number]) CLINICAL HISTORY: 87 years Female fall COMPARISON: None. TECHNIQUE: Two views of the pelvis and two views of the right hip. FINDINGS: There are changes from right hip arthroplasty. The surgical hardware appears intact. No acute fracture or dislocation is identified. There is mild curvature in the lumbar spine convex left with degenerative changes. There are postsurgical changes in the lower lumbar spine. There are degenerative changes involving the SI joints. IMPRESSION: No acute fracture is identified. CT or MRI could be obtained to better evaluate if there is continued clinical concern. Electronically signed by: Mohamud Laureano MD 04/06/2017 6:19 PM CDT Workstation: [employer]
[2017-04-06 19:06] VITALS: BP 146/66; TEMP 98.2; O2SAT 95
== END 2017-04-06 19:00 | disposition home or self-care (01) ==
LOC: ER 17:01
DX: S00.81XA Abrasion of other part of head, initial encounter (principal); M25.551 Pain in right hip; J44.9 Chronic obstructive pulmonary disease, unspecified; I11.0 Hypertensive heart disease with heart failure; I50.9 Heart failure, unspecified; E07.9 Disorder of thyroid, unspecified; K21.9 Gastro-esophageal reflux disease without esophagitis; Z79.82 Long term (current) use of aspirin; Z91.040 Latex allergy status; Z79.899 Other long term (current) drug therapy; W01.0XXA Fall on same level from slipping, tripping and stumbling without subsequent striking against object, initial encounter; Y92.9 Unspecified place or not applicable

== ENCOUNTER → 2017-05-29 | Outpatient (CLI) | payer MEDICARE, OTHER | END | disposition home or self-care (01) | LOC: YCHH 09:31 | PROVIDERS: ATTEND Obstetrics & Gynecology | DX: G20 Parkinson's disease (principal); J44.9 Chronic obstructive pulmonary disease, unspecified; D64.9 Anemia, unspecified ==

== ENCOUNTER → 2017-07-05 | Outpatient (CLI) | payer MEDICARE, OTHER | END | disposition home or self-care (01) | LOC: YCHH 10:10 | PROVIDERS: ATTEND Obstetrics & Gynecology | DX: N39.0 Urinary tract infection, site not specified (principal) ==

== ENCOUNTER → 2017-07-11 | Outpatient (CLI) | payer MEDICARE, OTHER ==
--- NOTE | 2017-07-11 16:31 | US ---
EXAM DESCRIPTION: Venous,Lower Extremity LT: ULTRASOUND. CLINICAL HISTORY: VENOUS INSUFFICIENCY COMPARISON: None Available. TECHNIQUE: Two -dimensional and doppler sonographic evaluation of the deep venous system of the left lower extremity. FINDINGS: Doppler evaluation shows normal color flow and normal phasicity and augmentation of the left common femoral vein, femoral vein, popliteal vein, greater saphenous vein, peroneal, and posterior tibial vein. The left lower extremity deep veins showed normal occlusion with transducer pressure. Two-dimensional survey showed no echogenic thrombus within these veins. IMPRESSION: 1. Duplex ultrasound evaluation of the left lower extremity deep venous system showing no evidence of thrombosis or embolism. Electronically signed by: Gaurav Silva MD 07/11/2017 4:30 PM QUALITATIVE EXECUTIVE RESEARCHER
--- NOTE | 2017-07-11 16:35 | US ---
EXAM DESCRIPTION: Venous,Lower Extremity RT: ULTRASOUND. CLINICAL HISTORY: VENOUS INSUFFICIENCY COMPARISON: None Available. TECHNIQUE: Two -dimensional and doppler sonographic evaluation of the deep venous system of the right lower extremity. FINDINGS: Doppler evaluation shows normal color flow and normal phasicity and augmentation of the right common femoral vein, femoral vein, popliteal vein, greater saphenous vein, peroneal, and posterior tibial vein. The right lower extremity deep veins showed normal occlusion with transducer pressure. Two-dimensional survey showed no echogenic thrombus within these veins. IMPRESSION: 1. Duplex ultrasound evaluation of the right lower extremity deep venous system showing no evidence of thrombosis or embolism. Electronically signed by: Gaurav Silva MD 07/11/2017 4:34 PM CORE BLOWER OPERATOR
== END | disposition home or self-care (01) ==
LOC: US 08:44
PROVIDERS: ATTEND Obstetrics & Gynecology
DX: I87.2 Venous insufficiency (chronic) (peripheral) (principal)

== ENCOUNTER → 2017-08-28 | Outpatient (CLI) | payer MEDICARE, OTHER | LOC: YCHH 09:20 | PROVIDERS: ATTEND Obstetrics & Gynecology | DX: D51.8 Other vitamin B12 deficiency anemias (principal); E03.9 Hypothyroidism, unspecified; I50.9 Heart failure, unspecified; D64.9 Anemia, unspecified ==

== ENCOUNTER → 2017-09-06 | Outpatient (CLI) | payer MEDICARE, OTHER ==
--- NOTE | 2017-09-06 19:08 | RAD ---
PROCEDURE: Hip,Left 2 Views Clinical History: PRESENCE OF UNSPECIFIED ARTIFICIAL HIP JOINT Indication: Same as above Comparison: None Technique: 2.0 views of the left hip. Findings: There is no evidence of acute fractures or dislocations involving the bones of the left hip joint and the adjacent pelvic bones. On the oblique view tram tracking seen in the left femoral head and the adjacent left subcapital region may be as result of removal of orthopedic hardware. There is partial visualization of prior surgery at the lumbosacral junction Impression: There are no acute or significant findings in the left hip joint Location of Interpretation: Teleradiology Electronically signed by: Sanjeev Murray MD 09/06/2017 7:05 PM CDT Workstation: [id number]
--- NOTE | 2017-09-06 19:08 | RAD ---
PROCEDURE: Hip,Right 2 Views Clinical History: PRESENCE OF UNSPECIFIED ARTIFICIAL HIP Indication: Same as above Comparison: 04/06/2017. Technique: 2.0 views of the right hip. Findings: There is no evidence of acute fractures or dislocations involving the bones of the right hip joint and the adjacent pelvic bones. There is intact right hip arthroplasty Impression: Intact right hip arthroplasty Location of Interpretation: Teleradiology Electronically signed by: Sanjeev Murray MD 09/06/2017 7:06 PM CDT Workstation: [id number]
== END ==
LOC: RAD 09:10
PROVIDERS: ATTEND Nurse Practitioner Family
DX: Z96.649 Presence of unspecified artificial hip joint (principal)

== ENCOUNTER → 2017-09-07 | Outpatient (CLI) | payer MEDICARE, OTHER ==
--- NOTE | 2017-09-08 14:00 | CT ---
EXAM DESCRIPTION: Abdomen/Pelvis w/Contrast CLINICAL HISTORY: GENERALIZED ABDOMINAL PAIN COMPARISON: None Available TECHNIQUE: CT of the abdomen and Pelvis was performed without IV contrast. This exam was performed according to our departmental dose-optimization program, which includes automated exposure control, adjustment of the mA and/or kV according to patient size and/or use of iterative reconstruction technique. FINDINGS: There is no lung base abnormality. No pneumoperitoneum, ascites or adenopathy. No abdominal aortic aneurysm or dissection. No hiatal hernia or gastric wall thickening. The gallbladder is surgically absent. Mild prominence of the central intrahepatic and extra hepatic biliary ducts is noted, but this is commonly seen in postcholecystectomy patients. No calcified gallstone in the common bile duct. The liver is otherwise unremarkable. There is a small round low density lesion inferiorly in the spleen which may represent a small hemangioma or cyst. No additional splenic lesion. The pancreas, adrenals and kidneys are unremarkable. No dilated small bowel loops or small bowel wall thickening. Streak artifact from patient's right hip prosthesis slightly limits evaluation of the pelvis. No bladder wall thickening is seen. The uterus and ovaries are not identified, correlate with surgical history. Occasional colonic diverticulosis is noted, but there is no evidence of diverticulitis. Moderate amount of stool and gas in the colon, most apparent in the right side. Degenerative changes in left hip. Postoperative changes in lumbar spine and right hip. There are degenerative changes in lumbar spine at multiple levels including degenerative disc disease with grade 1 anterolisthesis at L2-3 also likely of degenerative origin. IMPRESSION: Moderate amount of colonic stool and gas, but no additional abnormality in the abdomen or pelvis to explain generalized abdominal pain. Electronically signed by: Bran Benjamin MD 09/08/2017 1:58 PM CDT
== END ==
LOC: CT 14:57
PROVIDERS: ATTEND Psychiatry & Neurology Neurology
DX: R10.84 Generalized abdominal pain (principal)

== ENCOUNTER → 2018-01-22 | Outpatient (CLI) | payer MEDICARE, OTHER | LOC: YCHH 13:25 → EEVIPCON 13:25 | PROVIDERS: ATTEND Obstetrics & Gynecology | DX: N39.0 Urinary tract infection, site not specified (principal) ==

== ENCOUNTER → 2018-02-12 | Outpatient (CLI) | payer MEDICARE, OTHER | LOC: YCHH 11:49 | PROVIDERS: ATTEND Obstetrics & Gynecology | DX: E03.9 Hypothyroidism, unspecified (principal); E53.8 Deficiency of other specified B group vitamins; N18.9 Chronic kidney disease, unspecified; D64.9 Anemia, unspecified ==

== ENCOUNTER → 2018-03-12 | Outpatient (CLI) | payer MEDICARE, OTHER ==
--- NOTE | 2018-03-12 11:51 | RAD ---
EXAM DESCRIPTION: Humerus,Right CLINICAL HISTORY: 87 years Female, RT ARM PAIN COMPARISON: None. FINDINGS: Orthopedic tendon suture anchor screws are seen in the proximal right humerus. Degenerative spurring is seen at the right AC joint. Glenohumeral alignment appears normal. No fracture or dislocation or bony destructive lesion of the right humerus. Bones appear osteopenic or osteoporotic. IMPRESSION: Negative for fracture. Electronically signed by: Arturo Lau MD 03/12/2018 11:50 AM CDT
== END ==
LOC: RAD 07:49
PROVIDERS: ATTEND Orthopaedic Surgery
DX: M79.601 Pain in right arm (principal)

== ENCOUNTER → 2018-06-01 | Outpatient (CLI) | payer MEDICARE, OTHER | LOC: LAB.O 10:43 | DX: M47.22 Other spondylosis with radiculopathy, cervical region (principal); M48.062 Spinal stenosis, lumbar region with neurogenic claudication; R26.9 Unspecified abnormalities of gait and mobility; Z96.653 Presence of artificial knee joint, bilateral ==

== ENCOUNTER → 2018-06-04 | Outpatient (CLI) | payer MEDICARE, OTHER | LOC: YCHH 08:34 | PROVIDERS: ATTEND Obstetrics & Gynecology | DX: G20 Parkinson's disease (principal); D64.9 Anemia, unspecified; J44.9 Chronic obstructive pulmonary disease, unspecified ==

== ENCOUNTER → 2018-06-25 | Outpatient (CLI) | payer MEDICARE, OTHER | LOC: LAB.O 15:53 | PROVIDERS: ATTEND Obstetrics & Gynecology | DX: M79.89 Other specified soft tissue disorders (principal) ==

== ENCOUNTER → 2019-02-25 | Outpatient (CLI) | payer MEDICARE, OTHER ==
--- NOTE | 2019-02-25 14:20 | RAD ---
PROVIDED CLINICAL HISTORY/REASON FOR EXAM: HIP PAIN Findings: Number of images: One Location: Pelvis Partially visualized right total hip arthroplasty. No hardware complication identified. Osteopenia. No acute fracture is identified. Moderate left hip osteoarthritis. Degenerative changes noted in both sacroiliac joints. Similar postsurgical changes in the lower lumbar spine. Lower lumbar spondylosis. No evidence of hardware complication. IMPRESSION: Chronic degenerative changes about the left hip and pelvis. No fracture identified. Electronically signed by: Van Leija MD 02/25/2019 2:18 PM CDT
--- NOTE | 2019-02-25 15:58 | RAD ---
EXAM DESCRIPTION: Knee,Left Complete CLINICAL HISTORY: 88 years, Female, KNEE PAIN COMPARISON: 03/17/2016 TECHNIQUE: Four views of the left knee FINDINGS/IMPRESSION: Changes of left total knee arthroplasty with moderate areas of perihardware lucency involving the medial greater than lateral aspect of the tibial tray with mild posterior displacement of the tibial tray consistent with hardware loosening. The femoral component appears to be intact. There is wear and thinning of the polyethylene liner. No acute displaced fracture or dislocation is seen. Mild diffuse soft tissue swelling. No significant knee joint effusion. Electronically signed by: Bandar Stephenson DO 02/25/2019 3:56 PM CDT
== END ==
LOC: RAD 09:47
PROVIDERS: ATTEND Orthopaedic Surgery
DX: T84.093A Other mechanical complication of internal left knee prosthesis, initial encounter (principal); M16.0 Bilateral primary osteoarthritis of hip; M47.898 Other spondylosis, sacral and sacrococcygeal region; Z96.652 Presence of left artificial knee joint

== ENCOUNTER → 2019-02-28 | Outpatient (CLI) | payer MEDICARE, OTHER ==
--- NOTE | 2019-03-01 11:04 | NM ---
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 Pain in the left knee and bilateral hips. TECHNIQUE: Patient injected with 26.4 mCi of technetium 99M MDP IV. Immediate flow gamma camera images were obtained of the bilateral knees from various planes. "Blood pool" images were then obtained of the bilateral knees from various planes. Delayed gamma camera images from various planes were obtained 3 hr after injection. FINDINGS: Flow phase: Increased flow around the femoral and tibial component of the arthroplasty on the left knee compared to the right. "Blood pool" phase: Increased activity on the medial aspect of the femoral and tibial component and also around the tibial component in the left knee compared to the right. Delayed phase: Increased activity around the tibial component of the left knee arthroplasty compared to the right tibia, and also compared to the ipsilateral left femoral component. Minimal activity increase in around the left femoral component compared to the right. Focal increased activity around the distal right femoral arthroplasty stem in the proximal right femur. Photopenic region, corresponding to the stem. IMPRESSION: 1. Increased activity and uptake around the left total knee arthroplasty on all 3 phases, especially around the tibial component. This is consistent with either arthroplasty loosening or bone infection, and loosening is consistent with clinical history. 2. Increased activity around the distal right hip arthroplasty femoral stem on the delayed images could represent loosening of the femoral component. Correlate with clinical and radiographic findings. Electronically signed by: Gaurav Silva MD 03/01/2019 11:02 AM CDT
== END ==
LOC: NM 07:55
PROVIDERS: ATTEND Orthopaedic Surgery
DX: T84.033D Mechanical loosening of internal left knee prosthetic joint, subsequent encounter (principal); Z96.652 Presence of left artificial knee joint; Z96.641 Presence of right artificial hip joint
CPT/HCPCS: 78315; A9503

== ENCOUNTER 2019-04-29 15:52 | Emergency (ER) | payer MEDICARE, OTHER ==
--- NOTE | 2019-04-29 16:17 | ED.PDOC ---
History of Present Illness - General Chief Complaint: Lower Extremity Injury Stated Complaint: left leg pain Time Seen by Provider: 04/29/19 16:01 - History of Present Illness Initial Comments: 89 yo female with PMH of gout, hx of DVT who presents with cc of left leg pain. Onset this morning when she woke up, located to posterior left calf in midline, no radiation, constant, 5/10, "tender" pain, worse with walking, no meds tried for relief. Believes possibly a little more swollen than usual but denies any redness/warmth. Reports hx of LLE DVT diagnosed in 08/2018 after having similar pain in the left calf with similar presentation and was on Coumadin for 6 months. Denies any chest pain, dyspnea, palpitations, fevers, chills. No reported hx of PE. No recent surgeries. Denies any acute traumas or injuries. PCP is Dr. Paez. Allergies/Adverse Reactions: Allergies Guaifenesin [From Dynex] Allergy (Verified 04/29/19 16:11) Latex Allergy (Verified 04/29/19 16:11) Morphine [From MS Contin] Allergy (Verified 04/29/19 16:11) Pseudoephedrine [From Dynex] Allergy (Verified 04/29/19 16:11) Iron Adverse Reaction (Verified 04/29/19 16:11) Home Medications: Ambulatory Orders Aspirin [Aspirin 81] 81 mg PO DAILY 09/10/12 Citalopram Hydrobromide [Celexa] 20 mg PO BID 09/10/12 Cyanocobalamin Inj [Vitamin B-12 Inj] 1,000 mcg IM PRN PRN 09/10/12 Esomeprazole [Nexium] 40 mg PO DAILY 09/10/12 Furosemide [Lasix] 20 mg PO DAILY 09/10/12 HYDROcodone 5MG/APAP 325MG [[place] 5/325] 1 ea PO Q6H PRN 09/10/12 Levothyroxine Sodium [Synthroid] 0.05 mg PO DAILY 09/10/12 Methocarbamol [Robaxin] 500 mg PO DAILY 09/10/12 Montelukast [Singulair] 10 mg PO DAILY 09/10/12 Pramipexole Dihydrochloride [Mirapex] 1 mg PO BID 09/10/12 Solifenacin Succinate [Vesicare] 5 mg PO DAILY 09/10/12 Acetaminophen W/ Codeine [Tylenol W/ CODEINE #3] 1 ea PO Q4-6H PRN #14 06/23/14 Diclofenac Sodium (Topical) [Voltaren] 1 % TD DAILY PRN 02/27/16 Fluticasone Propionate (Nasal) [Flonase Allergy Relief Ch] 50 mcg NA DAILY 02/27/16 Metoclopramide Tab [Reglan] 5 mg PO QID PRN 02/27/16 Multiple Vitamins W/ Minerals [Centrum Adults] 1 tab PO DAILY 02/27/16 Potassium Chloride [K-Tab] 10 meq PO DAILY 02/27/16 Nitrofurantoin Macrocrystal [Macrodantin] 50 mg PO DAILY 12/14/16 Ranitidine HCl [Ranitidine 75] 150 mg PO BEDTIME 12/14/16 Nmhwaypqmsvfc-Mval-Ecqzffsiwg [Fioricet] 1 ea PO Q8H PRN #21 tab 12/25/16 Famotidine 20 mg PO BID #120 tab 12/25/16 Sucralfate Tab [Carafate Tab] 1 gm PO QID #60 tab 12/25/16 Cephalexin Monohydrate [Keflex] 500 mg PO Q8H #30 cap 01/05/17 Ciprofloxacin [Cipro] 500 mg PO BID #20 tab 01/05/17 Fluconazole [Diflucan Tab] 100 mg PO DAILY #3 tab 01/05/17 Review of Systems - Review of Systems Review of Systems: 04/29/19 16:17 as per HPI All other Systems: Reviewed and Negative Past Medical History (General) - Patient Medical History Hx Seizures: No Hx Stroke: Yes Hx Dementia: No Hx Asthma: No Hx of COPD: Yes Hx Cardiac Disorders: Yes Hx Congestive Heart Failure: Yes Hx Pacemaker: No Hx Hypertension: Yes Hx Thyroid Disease: Yes Hx Diabetes: No Hx Gastroesophageal Reflux: Yes Hx Renal Disease: No Hx Cancer: No Hx of HIV: No Hx Hepatitis C: No Hx MRSA: No Surgical History: appendectomy, cholecystectomy, Hysterectomy - Vaccination History Hx Tetanus, Diphtheria Vaccination: No Hx Influenza Vaccination: Yes Hx Pneumococcal Vaccination: Yes - Social History Hx Tobacco Use: No Hx Chewing Tobacco Use: No Hx Alcohol Use: No Hx Substance Use: No Hx Substance Use Treatment: No Hx Depression: No Hx Physical Abuse: No Hx Emotional Abuse: No Hx Suspected Abuse: No - Female History Patient is a Female of Child Bearing Age (10 -59 yrs old): No Patient : No - postmenopausal Family Medical History - Family History Mother Family History: Unknown Living Status: Hx Family Hypertension: Yes Physical Exam - Physical Exam General Appearance: Alert, No apparent distress Eyes, Ears, Nose, Throat: PERRL/EOMI, normal ENT inspection, pharynx normal Neck: non-tender, full range of motion, supple, normal inspection Cardiovascular/Respiratory: regular rate, rhythm, no M/R/G, no JVD, normal breath sounds Gastrointestinal/Abdominal: non-tender, no organomegaly, hernia - large ventral abdominal hernia Back: normal inspection, no CVA tenderness Thigh/Hip: no evidence of injury, normal ROM Leg: normal ROM, other - Left calf appears slightly more swollen than right, no redness/warmth/induration, mild posterior calf ttp, +Christine sign on left Knee: other - well healed vertical surgical wounds to BL anterior knees Ankle: normal inspection, non-tender, no evidence of injury, normal ROM Foot: normal inspection Mental Status: alert, oriented x 3 Skin: normal color, warm/dry Progress - Progress Progress: 04/29/19 16:20 Left calf pain -suspect calf muscle strain most likely, consider also DVT vs superficial phleblitis vs other -obtain d dimer and doppler venous US LLE 04/29/19 18:33 -D dimer elevated to 4.08. Doppler venous US of LLE reveals no evidence of DVT, however. -Thus will dc to home in good condition. Suspect calf pain due to muscular strain most likely. Does not appear emergent. F/u with PCP as scheduled or sooner as needed. Return warnings discussed. Ronald Jessica MD Billing #[id number] Departure - Departure Clinical Impression: Strain of calf muscle Qualifiers: Encounter type: initial encounter Laterality: left Qualified Code(s): S86.812A - Strain of other muscle(s) and tendon(s) at lower leg level, left leg, initial encounter Time of Disposition: 18:36 Disposition: Discharge to Home or Self Care Condition: Fair Departure Forms: ED Discharge - Pt. Copy, Patient Portal Self Enrollment Instructions: DI for Leg Pain Referrals: Mathieu Smiley MD [Primary Care Provider] - 1-2 Weeks Home Medications: Ambulatory Orders Aspirin [Aspirin 81] 81 mg PO DAILY 03/25/13 Citalopram Hydrobromide [Celexa] 20 mg PO BID 09/10/12 Cyanocobalamin Inj [Vitamin B-12 Inj] 1,000 mcg IM PRN PRN 09/10/12 Esomeprazole [Nexium] 40 mg PO DAILY 09/10/12 Furosemide [Lasix] 20 mg PO DAILY 09/10/12 HYDROcodone 5MG/APAP 325MG [[place] 5/325] 1 ea PO Q6H PRN 09/10/12 Levothyroxine Sodium [Synthroid] 0.05 mg PO DAILY 09/10/12 Methocarbamol [Robaxin] 500 mg PO DAILY 09/10/12 Montelukast [Singulair] 10 mg PO DAILY 09/10/12 Pramipexole Dihydrochloride [Mirapex] 1 mg PO BID 09/10/12 Solifenacin Succinate [Vesicare] 5 mg PO DAILY 09/10/12 Acetaminophen W/ Codeine [Tylenol W/ CODEINE #3] 1 ea PO Q4-6H PRN #14 06/23/14 Diclofenac Sodium (Topical) [Voltaren] 1 % TD DAILY PRN 02/27/16 Fluticasone Propionate (Nasal) [Flonase Allergy Relief Ch] 50 mcg NA DAILY 02/27/16 Metoclopramide Tab [Reglan] 5 mg PO QID PRN 02/27/16 Multiple Vitamins W/ Minerals [Centrum Adults] 1 tab PO DAILY 02/27/16 Potassium Chloride [K-Tab] 10 meq PO DAILY 02/27/16 Nitrofurantoin Macrocrystal [Macrodantin] 50 mg PO DAILY 12/14/16 Ranitidine HCl [Ranitidine 75] 150 mg PO BEDTIME 12/14/16 Gccgxhldkcink-Jtgz-Zxaajfxydd [Fioricet] 1 ea PO Q8H PRN #21 tab 12/25/16 Famotidine 20 mg PO BID #120 tab 12/25/16 Sucralfate Tab [Carafate Tab] 1 gm PO QID #60 tab 12/25/16 Cephalexin Monohydrate [Keflex] 500 mg PO Q8H #30 cap 01/05/17 Ciprofloxacin [Cipro] 500 mg PO BID #20 tab 01/05/17 Fluconazole [Diflucan Tab] 100 mg PO DAILY #3 tab 01/05/17
[2019-04-29 18:10] VITALS: BP 157/55; TEMP 97.4; O2SAT 93
--- NOTE | 2019-04-29 18:25 | US ---
EXAM DESCRIPTION: Venous,Lower Extremity LT CLINICAL HISTORY: 89 years, Female, left calf pain, hx of DVT COMPARISON: July 11, 2017 FINDINGS: Duplex imaging of the deep venous system of left lower extremity was performed with visualization from the common femoral veins to the popliteal veins and posterior tibial vein. There is normal compressibility, augmentation and flow with no visualized thrombus. No focal fluid collection is identified. IMPRESSION: No DVT. Electronically signed by: Jacky Paulino MD 04/29/2019 6:23 PM [employer]
== END 2019-04-29 18:55 | disposition home or self-care (01) ==
LOC: ER 15:52
DX: S86.812A Strain of other muscle(s) and tendon(s) at lower leg level, left leg, initial encounter (principal); I50.9 Heart failure, unspecified; I11.0 Hypertensive heart disease with heart failure; E07.9 Disorder of thyroid, unspecified; K21.9 Gastro-esophageal reflux disease without esophagitis; J44.9 Chronic obstructive pulmonary disease, unspecified; Z86.73 Personal history of transient ischemic attack (TIA), and cerebral infarction without residual deficits; Z79.899 Other long term (current) drug therapy; Z79.82 Long term (current) use of aspirin; Z88.8 Allergy status to other drugs, medicaments and biological substances; Z91.040 Latex allergy status; Z88.5 Allergy status to narcotic agent; Z86.718 Personal history of other venous thrombosis and embolism; X58.XXXA Exposure to other specified factors, initial encounter; Y92.9 Unspecified place or not applicable

== ENCOUNTER → 2019-06-05 | Outpatient (CLI) | payer MEDICARE, OTHER | LOC: YCHH 09:34 | PROVIDERS: ATTEND Obstetrics & Gynecology | DX: D64.9 Anemia, unspecified (principal); N18.9 Chronic kidney disease, unspecified; E53.8 Deficiency of other specified B group vitamins; E03.9 Hypothyroidism, unspecified ==

== ENCOUNTER → 2019-06-20 | Outpatient (CLI) | payer MEDICARE, OTHER ==
--- NOTE | 2019-06-20 11:04 | RAD ---
EXAM DESCRIPTION: Pelvis CLINICAL HISTORY: 89 years Female, HIP PAIN COMPARISON: February 25, 2019 FINDINGS: Single view of the pelvis demonstrates marked osteopenia with prior right hip replacement and prior fixation of the lower lumbar spine with pedicle screws and vertical links with probable posterior lateral fusion. Levoscoliosis of the mid lumbar spine noted. Moderately degenerative left hip with preserved joint space is noted. 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 IMPRESSION: Marked osteopenia of the pelvis with prior right hip replacement with bipolar prosthesis and moderate degenerative change left hip. Levoscoliosis of the spine with prior fixation of the lower lumbar spine. Electronically signed by: Sammy Solis MD 06/20/2019 11:02 AM [facility]
--- NOTE | 2019-06-20 11:05 | RAD ---
EXAM DESCRIPTION: Shoulder,Right 2 or More Views CLINICAL HISTORY: SHOULDER PAIN COMPARISON: None Available. TECHNIQUE: Four views right shoulder FINDINGS: Marked osteopenia with advanced AC joint arthropathy is present with opaque bone anchors in the region of the greater tuberosity noted. Superior migration of the humeral head consistent with advanced rotator cuff degeneration and thinning and probable rotator cuff tear is evident. Chest wall is intact. Glenohumeral articulation is normally aligned. IMPRESSION: 1. Osteopenia and advanced AC joint arthropathy with previous shoulder surgery and superior migration humeral head with narrowing of the subacromial space suggesting advanced rotator cuff degeneration and/or tear. Electronically signed by: Sammy Solis MD 06/20/2019 11:03 AM [facility]
--- NOTE | 2019-06-20 11:06 | RAD ---
EXAM DESCRIPTION: Hip,Right 2 Views CLINICAL HISTORY: HIP PAIN COMPARISON: September 06, 2017 TECHNIQUE: AP/frog leg lateral FINDINGS: Two radiographic views right hip demonstrate right hip replacement with bipolar prosthesis articulating with the [place] acetabulum. 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 Slight remodeling of the lateral femoral cortex near the tip of the prosthesis and lucency along the proximal lateral aspect of the femoral stem is noted suggestive of loosening of the femoral component of the prosthesis. IMPRESSION: Normal alignment right hip replacement with a suspected element of loosening of the femoral component of the hip replacement. Electronically signed by: Sammy Solis MD 06/20/2019 11:05 AM [facility]
== END ==
LOC: RAD 09:48
PROVIDERS: ATTEND Orthopaedic Surgery
DX: M16.12 Unilateral primary osteoarthritis, left hip (principal); M85.88 Other specified disorders of bone density and structure, other site; M41.86 Other forms of scoliosis, lumbar region; M85.811 Other specified disorders of bone density and structure, right shoulder; M12.811 Other specific arthropathies, not elsewhere classified, right shoulder; Z96.641 Presence of right artificial hip joint; Z98.890 Other specified postprocedural states

== ENCOUNTER → 2019-07-09 | Outpatient (CLI) | payer MEDICARE, OTHER ==
--- NOTE | 2019-07-10 13:17 | RAD ---
EXAM DESCRIPTION: Knee,Left Complete CLINICAL HISTORY: PAIN COMPARISON: 25 February 2019 TECHNIQUE: 4 views left FINDINGS: Exam reveals increasing lucency about the medial aspect of the tibial component. There is also a lateral tilt of the tibial component. This suggests loosening or infection. The changes have become more pronounced than seen previously. There is evidence of a joint effusion. IMPRESSION: The exam demonstrates evidence of loosening or infection of the tibial component. Electronically signed by: Masoud Sue MD 07/10/2019 1:15 PM [facility]
== END ==
LOC: RAD 15:29
PROVIDERS: ATTEND Nurse Practitioner Family
DX: M25.569 Pain in unspecified knee (principal); R93.7 Abnormal findings on diagnostic imaging of other parts of musculoskeletal system

== ENCOUNTER 2019-07-20 11:11 | Emergency (ER) | payer MEDICARE, OTHER ==
[2019-07-20] MEDS: ALBUTEROL SULFATE 2.5 MG/3 ML VIAL NEB ONE (12:43)
--- NOTE | 2019-07-20 12:43 | ED.PDOC ---
History of Present Illness - General Chief Complaint: Fever Time Seen by Provider: 07/20/19 12:14 Source: patient - History of Present Illness Initial Comments: 89 yo female with PMH of gout who presents with cc of cough. Onset 2 days ago and worsening, reports frequent cough minimally productive sometimes yellow phlegm, worse with activity and at night, slightly better at rest and with cough drops. Some mild assoc'd dyspnea with cough and subjective fevers but Tmax 98.6 F at home. Was seen in clinic 2 days ago for sx's and Rx'd Keflex which she reports she is taking. She was also seen recently for her left knee and Rx'd Bactrim for ongoing knee infections and instructed to take once she finishes her Keflex. Also reports slight sore throat. Denies chest pain, abd pain, n/v/d, urinary sx's. She had a friend who was ill with similar sx's just prior to her becoming sick. Allergies/Adverse Reactions: Allergies Guaifenesin [From Dynex] Allergy (Verified 04/29/19 16:11) Latex Allergy (Verified 04/29/19 16:11) Morphine [From MS Contin] Allergy (Verified 04/29/19 16:11) Pseudoephedrine [From Dynex] Allergy (Verified 04/29/19 16:11) Iron Adverse Reaction (Verified 04/29/19 16:11) Home Medications: Ambulatory Orders Aspirin [Aspirin 81] 81 mg PO DAILY 09/10/12 Citalopram Hydrobromide [Celexa] 20 mg PO BID 09/10/12 Cyanocobalamin Inj [Vitamin B-12 Inj] 1,000 mcg IM PRN PRN 09/10/12 Esomeprazole [Nexium] 40 mg PO DAILY 09/10/12 Furosemide [Lasix] 20 mg PO DAILY 09/10/12 HYDROcodone 5MG/APAP 325MG [[place] 5/325] 1 ea PO Q6H PRN 09/10/12 Levothyroxine Sodium [Synthroid] 0.05 mg PO DAILY 09/10/12 Methocarbamol [Robaxin] 500 mg PO DAILY 09/10/12 Montelukast [Singulair] 10 mg PO DAILY 09/10/12 Pramipexole Dihydrochloride [Mirapex] 1 mg PO BID 09/10/12 Solifenacin Succinate [Vesicare] 5 mg PO DAILY 09/10/12 Acetaminophen W/ Codeine [Tylenol W/ CODEINE #3] 1 ea PO Q4-6H PRN #14 06/23/14 Diclofenac Sodium (Topical) [Voltaren] 1 % TD DAILY PRN 02/27/16 Fluticasone Propionate (Nasal) [Flonase Allergy Relief Ch] 50 mcg NA DAILY 02/27/16 Metoclopramide Tab [Reglan] 5 mg PO QID PRN 02/27/16 Multiple Vitamins W/ Minerals [Centrum Adults] 1 tab PO DAILY 02/27/16 Potassium Chloride [K-Tab] 10 meq PO DAILY 02/27/16 Nitrofurantoin Macrocrystal [Macrodantin] 50 mg PO DAILY 12/14/16 Ranitidine HCl [Ranitidine 75] 150 mg PO BEDTIME 12/14/16 Gsosplysalnyb-Seyu-Kixynzagma [Fioricet] 1 ea PO Q8H PRN #21 tab 12/25/16 Famotidine 20 mg PO BID #120 tab 12/25/16 Sucralfate Tab [Carafate Tab] 1 gm PO QID #60 tab 12/25/16 Cephalexin Monohydrate [Keflex] 500 mg PO Q8H #30 cap 01/05/17 Ciprofloxacin [Cipro] 500 mg PO BID #20 tab 01/05/17 Fluconazole [Diflucan Tab] 100 mg PO DAILY #3 tab 01/05/17 Amoxicillin & Pot Clavulanate [Augmentin Tab] 875 mg PO BID 7 Days #14 tab 07/20/19 Guaifenesin-Codeine [Codeine/Guaifenesin 100-10 mg/5Ml] 10 ml PO Q4H PRN 14 Days #236 ml 07/20/19 Oseltamivir Capsule [Tamiflu] 75 mg PO BID 5 Days #10 capsule 07/20/19 Review of Systems - Review of Systems Review of Systems: 07/20/19 12:43 as per HPI All other Systems: Reviewed and Negative Past Medical History (General) - Patient Medical History Hx Seizures: No Hx Stroke: Yes Hx Dementia: No Hx Asthma: No Hx of COPD: Yes Hx Cardiac Disorders: Yes Hx Congestive Heart Failure: Yes Hx Pacemaker: No Hx Hypertension: Yes Hx Thyroid Disease: Yes Hx Diabetes: No Hx Gastroesophageal Reflux: Yes Hx Renal Disease: No Hx Cancer: No Hx of HIV: No Hx Hepatitis C: No Hx MRSA: No - Vaccination History Hx Tetanus, Diphtheria Vaccination: No Hx Influenza Vaccination: Yes Hx Pneumococcal Vaccination: Yes - Social History Hx Tobacco Use: No Hx Chewing Tobacco Use: No Hx Alcohol Use: No Hx Substance Use: No Hx Substance Use Treatment: No Hx Depression: No Hx Physical Abuse: No Hx Emotional Abuse: No Hx Suspected Abuse: No - Female History Patient : No - postmenopausal Family Medical History - Family History Mother Family History: Unknown Living Status: Hx Family Hypertension: Yes Physical Exam - Physical Exam General Appearance: Alert, Comfortable, No apparent distress Eye Exam: bilateral normal Ears, Nose, Throat: hearing grossly normal, pharyngeal erythema Neck: non-tender, full range of motion, supple, normal inspection Respiratory: lungs clear, normal breath sounds, no respiratory distress, no accessory muscle use Cardiovascular/Chest: normal peripheral pulses, regular rate, rhythm, no edema, systolic murmur - 3/6 systolic murmur best heard at LUSB Peripheral Pulses: radial,right: 2+, radial,left: 2+ Gastrointestinal/Abdominal: non tender, soft Back Exam: normal inspection, no CVA tenderness Extremity: normal range of motion, non-tender, no calf tenderness 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 Consider also flu vs strep vs PNA vs COPD vs other -vitals stable, NAD, resting comfortably in bed -check flu, strep, CXR, CBC, CMP 07/20/19 13:47 -CXR shows findings of viral infection but no focal infiltrates per my read. Labs show low WBC & PLTs indicative of likely viral infection. Pt does have positive strep test and Flu A. Will treat with Tamiflu BID x5 days and Augmentin BID x7 days. Stop Keflex. -dc home in fair condition, strict return warnings discussed Ronald Jessica MD Billing #[id number] 07/20/19 12:38 IV Care:Saline Lock per Protoc QSHIFT Telemetry .ONCE Sodium Chloride 0.9% (Flush) [Saline Flush Syringe] 10 ml IV PRN PRN 07/20/19 12:55 INFLUENZA A & B BY PCR Stat 07/21/19 09:00 Pulse Ox Daily Laboratory Results - last 24 hr 07/20/19 07/20/19 07/20/19 12:01 12:01 12:01 WBC 2.9 L RBC 4.23 Hgb 11.3 L Hct 34.4 L MCV 81.4 MCH 26.8 L MCHC 32.9 L RDW 17.1 H Plt Count 111 L MPV 7.1 L Absolute Neuts (auto) 2.00 Absolute Lymphs (auto) 0.40 L Absolute Monos (auto) 0.40 Absolute Eos (auto) 0.10 Absolute Basos (auto) 0.00 Neutrophils % 68.7 Lymphocytes % 12.9 L Monocytes % 12.5 H Eosinophils % 5.0 Basophils % 0.9 Sodium 136 Potassium 4.3 Chloride 103 Carbon Dioxide 25 Anion Gap 12.3 BUN 22 H Creatinine 0.90 BUN/Creatinine Ratio 24.4 H Random Glucose 92 Serum Osmolality 274.9 L Calcium 9.4 B-Natriuretic Peptide 56.7 Group A Strep Rapid 07/20/19 12:55 WBC RBC Hgb Hct MCV MCH MCHC RDW Plt Count MPV Absolute Neuts (auto) Absolute Lymphs (auto) Absolute Monos (auto) Absolute Eos (auto) Absolute Basos (auto) Neutrophils % Lymphocytes % Monocytes % Eosinophils % Basophils % Sodium Potassium Chloride Carbon Dioxide Anion Gap BUN Creatinine BUN/Creatinine Ratio Random Glucose Serum Osmolality Calcium B-Natriuretic Peptide Group A Strep Rapid Positive Departure - Departure Clinical Impression: Strep pharyngitis, Influenza A Time of Disposition: 13:40 Disposition: Discharge to Home or Self Care Condition: Fair Departure Forms: ED Discharge - Pt. Copy, Patient Portal Self Enrollment Instructions: Flu, Adult (DC), Sore Throat, Adult (DC) Referrals: Mathieu Smiley MD [Primary Care Provider] - 1-2 Weeks Prescriptions: Amoxicillin & Pot Clavulanate [Augmentin Tab] 875 mg PO BID 7 Days #14 tab Guaifenesin-Codeine [Codeine/Guaifenesin 100-10 mg/5Ml] 10 ml PO Q4H PRN 14 Days #236 ml PRN Reason: Cough Oseltamivir Capsule [Tamiflu] 75 mg PO BID 5 Days #10 capsule Home Medications: Ambulatory Orders Aspirin [Aspirin 81] 81 mg PO DAILY 09/10/12 Citalopram Hydrobromide [Celexa] 20 mg PO BID 09/10/12 Cyanocobalamin Inj [Vitamin B-12 Inj] 1,000 mcg IM PRN PRN 09/10/12 Esomeprazole [Nexium] 40 mg PO DAILY 09/10/12 Furosemide [Lasix] 20 mg PO DAILY 09/10/12 HYDROcodone 5MG/APAP 325MG [[place] 5/325] 1 ea PO Q6H PRN 09/10/12 Levothyroxine Sodium [Synthroid] 0.05 mg PO DAILY 09/10/12 Methocarbamol [Robaxin] 500 mg PO DAILY 09/10/12 Montelukast [Singulair] 10 mg PO DAILY 09/10/12 Pramipexole Dihydrochloride [Mirapex] 1 mg PO BID 09/10/12 Solifenacin Succinate [Vesicare] 5 mg PO DAILY 09/10/12 Acetaminophen W/ Codeine [Tylenol W/ CODEINE #3] 1 ea PO Q4-6H PRN #14 06/23/14 Diclofenac Sodium (Topical) [Voltaren] 1 % TD DAILY PRN 02/27/16 Fluticasone Propionate (Nasal) [Flonase Allergy Relief Ch] 50 mcg NA DAILY 02/27/16 Metoclopramide Tab [Reglan] 5 mg PO QID PRN 02/27/16 Multiple Vitamins W/ Minerals [Centrum Adults] 1 tab PO DAILY 02/27/16 Potassium Chloride [K-Tab] 10 meq PO DAILY 02/27/16 Nitrofurantoin Macrocrystal [Macrodantin] 50 mg PO DAILY 12/14/16 Ranitidine HCl [Ranitidine 75] 150 mg PO BEDTIME 12/14/16 Khvhprwbwshfs-Eyni-Qbdaepcqzj [Fioricet] 1 ea PO Q8H PRN #21 tab 12/25/16 Famotidine 20 mg PO BID #120 tab 12/25/16 Sucralfate Tab [Carafate Tab] 1 gm PO QID #60 tab 12/25/16 Cephalexin Monohydrate [Keflex] 500 mg PO Q8H #30 cap 01/05/17 Ciprofloxacin [Cipro] 500 mg PO BID #20 tab 01/05/17 Fluconazole [Diflucan Tab] 100 mg PO DAILY #3 tab 01/05/17 Amoxicillin & Pot Clavulanate [Augmentin Tab] 875 mg PO BID 7 Days #14 tab 07/20/19 Guaifenesin-Codeine [Codeine/Guaifenesin 100-10 mg/5Ml] 10 ml PO Q4H PRN 14 Days #236 ml 07/20/19 Oseltamivir Capsule [Tamiflu] 75 mg PO BID 5 Days #10 capsule 07/20/19 Additional Instructions: Take the Tamiflu and Augmentin as directed. You may continue to use OTC cough and cold medications as needed. You may take the Codeine-guaifenesin cough syrup as needed for cough as well. Do not drive or operate heavy machinery when taking because it could make you drowsy. Return if worsening or other concerning symptoms such as chest pain, shortness of breath, etc... Follow up closely with your PCP in 5-7 days is recommended.
[2019-07-20] MEDS: SODIUM CHLORIDE 0.9% (FLUSH) 10 ML SYG IV PRN (12:49)
--- NOTE | 2019-07-20 13:14 | RAD ---
EXAM DESCRIPTION: Chest,2 Views CLINICAL HISTORY: 89 years Female cough, dyspnea COMPARISON: None TECHNIQUE: PA and lateral views of the chest are obtained. Heart: The heart is normal in size and configuration. Vasculature: There is atherosclerosis of the aortic arch and mild tortuosity of the aorta. There is no evidence of aortic aneurysm or acute findings. The pulmonary vascularity is normal. Mediastinum: No evidence of mass or adenopathy. 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 Phrenic nerve injury or palsy also considerations but less likely. Mild density in the right lower lung is probably compressive atelectasis or scarring in the right middle lobe and appears unchanged. Pleural spaces: There are no pleural effusions. There are no pneumothoraces. Osseous structures: There is no evidence of acute fracture, osseous destruction or osteoblastic lesions. Noted again is a mild compression fracture at approximately T9. There is a mild dextroconvex lower thoracic curve. There are mild degenerative changes in the shoulders. Tubes and catheters: None Upper abdomen: No acute findings. Chest wall: Unremarkable with the exception of costochondral calcifications. IMPRESSION: NO SIGNIFICANT RADIOGRAPHIC ABNORMALITIES IN THE CHEST. Electronically signed by: Danuta Stallworth MD 07/20/2019 1:12 PM [employer]
[2019-07-20] MEDS: OSELTAMIVIR 75 MG CAP PO ONE (13:43)
[2019-07-20] MEDS: AMOXICILLIN & POT CLAVULANATE 875 MG TAB PO ONE (13:43)
[2019-07-20 14:03] VITALS: TEMP 98.9
[2019-07-20 14:11] VITALS: BP 153/72; O2SAT 95
== END 2019-07-20 13:50 | disposition home or self-care (01) ==
LOC: ER 11:11
DX: J02.0 Streptococcal pharyngitis (principal); J10.1 Influenza due to other identified influenza virus with other respiratory manifestations; J44.9 Chronic obstructive pulmonary disease, unspecified; I50.9 Heart failure, unspecified; I11.0 Hypertensive heart disease with heart failure; E07.9 Disorder of thyroid, unspecified; K21.9 Gastro-esophageal reflux disease without esophagitis; Z86.73 Personal history of transient ischemic attack (TIA), and cerebral infarction without residual deficits; Z79.899 Other long term (current) drug therapy; Z79.82 Long term (current) use of aspirin; Z88.8 Allergy status to other drugs, medicaments and biological substances; Z91.040 Latex allergy status; Z88.5 Allergy status to narcotic agent
CPT/HCPCS: 36415; 71046; 80048; 83880; 85025; 87502; 87880; 94640; 94760; J7611

== ENCOUNTER → 2019-08-05 | Outpatient (CLI) | payer MEDICARE, OTHER ==
--- NOTE | 2019-08-05 13:23 | RAD ---
EXAM DESCRIPTION: Pelvis CLINICAL HISTORY: 89 years Female, PAIN IN RIGHT HIP COMPARISON: Radiographs of the pelvis dated 06/20/2019. TECHNIQUE: AP radiograph of the pelvis was performed. FINDINGS: The pelvic ring appears grossly intact on this single AP radiograph. No acute fracture or dislocation. Bilateral sacroiliac joints appear normal. Changes of right total hip arthroplasty. Moderate degenerative changes are noted in the left hip. The visualized lumbo-sacral spine demonstrates mild degenerative changes. IMPRESSION: Single AP radiograph of the pelvis demonstrates grossly intact pelvic ring. Stable right total hip arthroplasty. Electronically signed by: Elva Pnod MD 08/05/2019 1:22 PM [facility]
--- NOTE | 2019-08-05 13:24 | RAD ---
EXAM DESCRIPTION: Knee,Left Complete CLINICAL HISTORY: 89 years Female, PAIN IN LEFT KNEE COMPARISON: July 09, 2019 Findings: Four views/radiographs Left total knee arthroplasty. Similar extensive perihardware lucency surrounding the tibial component which is elevated from the residual proximal tibia. Osteopenia. Soft tissue swelling is present about the left knee. No acute fracture or dislocation is identified. Similar lateral downsloping of the arthroplasty with respect to the residual proximal tibia. IMPRESSION: Redemonstrated extensive perihardware lucency surrounding the tibial component of the left knee arthroplasty, which would suggest loosening or infection. Electronically signed by: Van Leija MD 08/05/2019 1:22 PM [facility]
== END ==
LOC: RAD 07:40
PROVIDERS: ATTEND Orthopaedic Surgery
DX: T84.9XXA Unspecified complication of internal orthopedic prosthetic device, implant and graft, initial encounter (principal); Z96.652 Presence of left artificial knee joint; Z96.641 Presence of right artificial hip joint

== ENCOUNTER 2019-10-31 12:28 | Emergency (ER) | payer MEDICARE, OTHER ==
--- NOTE | 2019-10-31 13:02 | RAD ---
EXAM DESCRIPTION: Elbow,Left 2 Views CLINICAL HISTORY: fall at home c deformity, distant prev fxr COMPARISON: None Available. TECHNIQUE: AP, Lateral, and Oblique FINDINGS: Two x-ray-view left elbow shows no fracture or definite dislocation. Radial head and capitellum appear normally aligned on the slightly oblique AP view. On the slightly oblique lateral view, radial head is slightly anterior to the convexity of the capitellum. Correlate with range of motion. A true lateral view might be considered. No displacement of distal humeral fat pads. Ulnar trochlear joint appears intact. There is no lytic bone lesion. There are no significant arthritic changes. There is no radiopaque foreign body in the [id number]. IMPRESSION: Negative for fracture. Slight anterior subluxation of the radial head. Electronically signed by: Arturo Lau MD 10/31/2019 12:59 PM CDT
--- NOTE | 2019-10-31 13:04 | RAD ---
EXAM DESCRIPTION: Wrist x-ray,Left 3 Views CLINICAL HISTORY: 89 years, Female, fall at home c deformity, distant prev fxr COMPARISON: None FINDINGS: Left wrist 3 x-ray views is positive for impacted comminuted fracture of the distal radius and ulna. Fracture line extends into the radiocarpal joint. Largest radial fracture is displaced laterally. Widened space between the scaphoid and lunate consistent with ligamentous tear. Advanced degenerative changes of the lateral carpus. Degenerative narrowing of the first metacarpal phalangeal joint and interphalangeal joint of the thumb. Oblique view shows another fracture fragment of the distal radius slightly displaced toward the ulna with 1 mm gap at the fracture site. Lateral view shows impaction and dorsal angulation of the distal radial articular surface. The degree of dorsal angulation is 39 degrees. IMPRESSION: Impacted fractures of distal left radius and ulna. Widened scapholunate distance consistent with ligamentous injury. Electronically signed by: Arturo Lau MD 10/31/2019 1:02 PM CDT
[2019-10-31] MEDS ORDERED: LIDOCAINE 1% 50 ML VIAL INJ ONE (13:14)
[2019-10-31] MEDS ORDERED: KETOROLAC TROMETHAMINE INJ 30 MG/ML VIAL IV ONE (13:26)
--- NOTE | 2019-10-31 14:50 | RAD ---
EXAM DESCRIPTION: Wrist,Left 3 Views CLINICAL HISTORY: post attempted reduction COMPARISON: 3 views of the left wrist from the same date October 31, 2019 1251 hours. Findings: 3 views of the left wrist acquired at 1428 hours October 31, 2019. There has been interval reduction of the comminuted intra-articular distal radial fracture with improved alignment that is near-anatomic. Distal radial styloid fracture is not significantly displaced or changed in the follow-up. 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 Advanced osteoarthritis throughout the interphalangeal joints of the left hand. Fine cast and/or splint overlies the left wrist obscuring fine bony detail. IMPRESSION: Interval reduction of an intra-articular comminuted distal radial fracture that is in near anatomic alignment. Electronically signed by: Trent Wang MD 10/31/2019 2:48 PM CDT
[2019-10-31] MEDS ORDERED: IPRATROPIUM/ALBUTEROL 3 ML VIAL NEB ONE (15:09)
--- NOTE | 2019-10-31 15:37 | ED.PDOC ---
History of Present Illness - General Chief Complaint: Trauma Stated Complaint: Fall w/ Left Wrist injury Time Seen by Provider: 10/31/19 12:31 Source: patient Exam Limitations: no limitations - History of Present Illness Initial Comments: The patient is an 89-year-old female presented emergency room after an accidental fall at home. There is obvious deformity over the distal radius of the left arm. Right near the wrist. She does report some mild numbness in the fourth ring finger. She otherwise appears to be neurovascularly intact. Pulses are strong capillary refill is within normal limits. No other injury. No laceration. She wiggles the fingers well. She is pleasant and cooperative. She did not hit her head. No neck pain. No elbow pain. Timing/Duration: momentarily Severity: severe Improving Factors: immobilization Worsening Factors: movement Associated Symptoms: denies symptoms Allergies/Adverse Reactions: Allergies Guaifenesin [From Dynex] Allergy (Verified 04/29/19 16:11) Latex Allergy (Verified 04/29/19 16:11) Morphine [From MS Contin] Allergy (Verified 04/29/19 16:11) Pseudoephedrine [From Dynex] Allergy (Verified 04/29/19 16:11) Iron Adverse Reaction (Verified 04/29/19 16:11) Home Medications: Ambulatory Orders Aspirin [Aspirin 81] 81 mg PO DAILY 09/10/12 Citalopram Hydrobromide [Celexa] 20 mg PO BID 09/10/12 Furosemide [Lasix] 20 mg PO DAILY 09/10/12 Levothyroxine Sodium [Synthroid] 25 mcg PO 0630 09/10/12 Pramipexole Dihydrochloride [Mirapex] 1 mg PO BEDTIME 09/10/12 Solifenacin Succinate [Vesicare] 5 mg PO BEDTIME 09/10/12 Fluticasone Propionate (Nasal) [Flonase Allergy Relief Ch] 2 spray NA DAILY 02/27/16 Potassium Chloride [K-Tab] 20 meq PO DAILY 02/27/16 Acetaminophen/Codeine Jasper 300-60 mg 1 tablet PO Q6HR PRN 08/20/19 Ascorbic Acid [Vitamin C] 500 mg PO DAILY 08/20/19 Cefdinir 300 mg PO BID #16 capsule 08/20/19 Diclofenac Sodium (Topical) [Diclofenac Sodium] 1 % TD TID PRN 08/20/19 Famotidine [Pepcid] 1 tablet PO BID 08/20/19 Ferrous Sulfate 325 mg PO DAILY 08/20/19 Fexofenadine HCl [Valerie Allergy] 180 mg PO Q12H PRN 08/20/19 Hydroxychloroquine Sulfate [Plaquenil] 1 tablet PO BID 08/20/19 Lidocaine [Lidocaine Scott] 1 applic TOP PRN PRN 08/20/19 Linzess 72 mcg PO DAILY 08/20/19 Losartan Potassium 1 tablet PO DAILY 08/20/19 Magnesium Oxide 400 mg PO DAILY 08/20/19 Melatonin 5 mg PO BEDTIME 08/20/19 Meloxicam [Mobic] 7.5 mg PO BID PRN 08/20/19 Montelukast [Singulair] 10 mg PO DAILY 08/20/19 Multiple Vitamins W/ Minerals [Vitamin D3 Complete] 1 tab PO DAILY 08/20/19 Probiotic Product [Probiotic-10] 1 cap PO DAILY 08/20/19 Acetaminophen W/ Codeine [Acetaminophen/Codeine #3 300-30 mg] 1 tab PO Q8HR PRN #20 tab 10/31/19 Review of Systems - Review of Systems Constitutional: States: no symptoms reported EENTM: States: no symptoms reported Respiratory: States: no symptoms reported Cardiology: States: no symptoms reported Gastrointestinal/Abdominal: States: no symptoms reported Genitourinary: States: no symptoms reported Musculoskeletal: States: see HPI Skin: States: no symptoms reported Neurological: States: see HPI Endocrine: States: no symptoms reported All other Systems: No Change from Baseline Past Medical History (General) - Patient Medical History Hx Seizures: No Hx Stroke: Yes Hx Dementia: No Hx Asthma: No Hx of COPD: Yes Hx Cardiac Disorders: Yes Hx Congestive Heart Failure: Yes Hx Pacemaker: No Hx Hypertension: Yes Hx Thyroid Disease: Yes Hx Diabetes: No Hx Gastroesophageal Reflux: Yes Hx Renal Disease: No Hx Cancer: No Hx of HIV: No Hx Hepatitis C: No Hx MRSA: No Surgical History: appendectomy, cholecystectomy, Hysterectomy - Vaccination History Hx Tetanus, Diphtheria Vaccination: No Hx Influenza Vaccination: Yes Hx Pneumococcal Vaccination: Yes - Social History Hx Tobacco Use: No Hx Chewing Tobacco Use: No Hx Alcohol Use: No Hx Substance Use: No Hx Substance Use Treatment: No Hx Depression: No Hx Physical Abuse: No Hx Emotional Abuse: No Hx Suspected Abuse: No - Activities of Daily Living Hospice Agency (if applicable):: None - Female History Patient is a Female of Child Bearing Age (10 -59 yrs old): No Patient : No - Triage Comment ED Triage Comment: pt voices she was turning around in her home while ambulating and "got tripped up over my feet" and fell and caught herself on her left arm. pt voices she has minimal pain to left wrist ranking it 1/10. LUE pulses present and palpable. skin color WNL with no swelling noted. pt is A&Ox3. Family Medical History - Family History Mother Family History: Unknown Living Status: Hx Family Hypertension: Yes Physical Exam - Physical Exam General Appearance: Alert, No apparent distress Eye Exam: bilateral normal Ears, Nose, Throat: hearing grossly normal, normal pharynx Neck: full range of motion, supple Respiratory: lungs clear, normal breath sounds, no respiratory distress, no accessory muscle use Cardiovascular/Chest: normal peripheral pulses, no edema, other - Regular rate Peripheral Pulses: radial,right: 2+, radial,left: 2+ Gastrointestinal/Abdominal: non tender, soft Rectal Exam: deferred Extremity: no pedal edema, normal capillary refill, other - Deformity at the left wrist. Neurologic: floorworker II-XII nml as tested, alert, normal mood/affect, oriented x 3 Skin Exam: normal color Comments: Vital Signs - 24 hr 10/31/19 10/31/19 10/31/19 12:32 12:44 13:28 Temperature 98.8 F 98.7 F Pulse Rate [ 77 77 71 brachial] Respiratory 18 18 18 Rate Blood Pressure 90/54 169/101 [Right Arm] O2 Sat by Pulse 97 94 L Oximetry 10/31/19 10/31/19 10/31/19 14:00 14:30 15:00 Temperature 98.5 F Pulse Rate [ 67 79 73 brachial] Respiratory 20 20 18 Rate Blood Pressure 133/75 161/70 154/80 [Right Arm] O2 Sat by Pulse 92 L 95 88 L Oximetry Progress - Progress Progress: 10/31/19 15:39 Patient is an 89-year-old female presented emergency room after having accidentally fallen at home. The patient has a closed left distal radius and ulna fracture that is comminuted and displaced initially. After risk and benefits of reduction were explained the patient agrees to proceed. The area was cleaned with alcohol and a hematoma block was applied with 14 cc of Xylocaine without epinephrine. Direct pressure was applied for reduction of the fracture site. Postreduction films do show improved alignment however given the comminuted nature of the fracture site, the fracture may still move some over the next week or 2. Splint was placed and the patient will be placed in a sling. The patient will be using a platform walker. The patient is right-hand dominant. She needs to follow-up with her home health physical therapy tomorrow to help with further instruction on how to safely use the platform walker. I do want her to follow-up with Dr. miguel, the orthopedist within the next week to 10 days for repeat evaluation. The patient has been offered admission for observation tonight however she defers that at this point. The patient is competent to make this decision at this time. ER warnings are given for any worsening. arie sun [id number] 10/31/19 17:51 Delay in disposition has been due to delay in acquiring a walker and a ride. 10/31/19 17:53 10/31/19 17:55 [facility] aware has been consulted. Patient will be written for Tylenol 3 for as needed use. She reports she has tolerated codeine just fine in the past. - Results/Orders Results/Orders: X-ray of the left wrist shows impacted comminuted fracture of the distal radius with some significant displacement and angulation. See report for details. There is also a impacted ulnar fracture. Minimal displacement there however. There is obvious ligamentous instability. Postreduction film shows improved alignment but still obvious ligamentous instability Departure - Departure Clinical Impression: Gait instability Wrist fracture, closed Qualifiers: Encounter type: initial encounter Laterality: left Qualified Code(s): S62.102A - Fracture of unspecified carpal bone, left wrist, initial encounter for closed fracture ICD-10 Supporting Text: Impacted, comminuted and displaced closed fracture of the left distal radius and ulna. Initial evaluation. Disposition: Discharge to Home or Self Care Condition: Fair Departure Forms: ED Discharge - Pt. Copy, Patient Portal Self Enrollment Instructions: DI for Trauma Diet: diabetic diet Activity: no pushing/pulling with affected limb Referrals: Mathieu Smiley MD [Primary Care Provider] - 1-2 Weeks Prescriptions: Acetaminophen W/ Codeine [Acetaminophen/Codeine #3 300-30 mg] 1 tab PO Q8HR PRN #20 tab PRN Reason: Moderate To Severe Pain Home Medications: Ambulatory Orders Aspirin [Aspirin 81] 81 mg PO DAILY 09/10/12 Citalopram Hydrobromide [Celexa] 20 mg PO BID 09/10/12 Furosemide [Lasix] 20 mg PO DAILY 09/10/12 Levothyroxine Sodium [Synthroid] 25 mcg PO 0630 09/10/12 Pramipexole Dihydrochloride [Mirapex] 1 mg PO BEDTIME 09/10/12 Solifenacin Succinate [Vesicare] 5 mg PO BEDTIME 09/10/12 Fluticasone Propionate (Nasal) [Flonase Allergy Relief Ch] 2 spray NA DAILY 02/27/16 Potassium Chloride [K-Tab] 20 meq PO DAILY 02/27/16 Acetaminophen/Codeine Jasper 300-60 mg 1 tablet PO Q6HR PRN 08/20/19 Ascorbic Acid [Vitamin C] 500 mg PO DAILY 08/20/19 Cefdinir 300 mg PO BID #16 capsule 08/20/19 Diclofenac Sodium (Topical) [Diclofenac Sodium] 1 % TD TID PRN 08/20/19 Famotidine [Pepcid] 1 tablet PO BID 08/20/19 Ferrous Sulfate 325 mg PO DAILY 08/20/19 Fexofenadine HCl [Valerie Allergy] 180 mg PO Q12H PRN 08/20/19 Hydroxychloroquine Sulfate [Plaquenil] 1 tablet PO BID 08/20/19 Lidocaine [Lidocaine Scott] 1 applic TOP PRN PRN 08/20/19 Linzess 72 mcg PO DAILY 08/20/19 Losartan Potassium 1 tablet PO DAILY 08/20/19 Magnesium Oxide 400 mg PO DAILY 08/20/19 Melatonin 5 mg PO BEDTIME 08/20/19 Meloxicam [Mobic] 7.5 mg PO BID PRN 08/20/19 Montelukast [Singulair] 10 mg PO DAILY 08/20/19 Multiple Vitamins W/ Minerals [Vitamin D3 Complete] 1 tab PO DAILY 08/20/19 Probiotic Product [Probiotic-10] 1 cap PO DAILY 08/20/19 Acetaminophen W/ Codeine [Acetaminophen/Codeine #3 300-30 mg] 1 tab PO Q8HR PRN #20 tab 10/31/19 Additional Instructions: Patient is an 89-year-old female presented emergency room after having accidentally fallen at home. The patient has a closed left distal radius and ulna fracture that is comminuted and displaced initially. After risk and benefits of reduction were explained the patient agrees to proceed. The area was cleaned with alcohol and a hematoma block was applied with 14 cc of Xylocaine without epinephrine. Direct pressure was applied for reduction of the fracture site. Postreduction films do show improved alignment however given the comminuted nature of the fracture site, the fracture may still move some over the next week or 2. Splint was placed and the patient will be placed in a sling. The patient will be using a platform walker. The patient is right-hand dominant. She needs to follow-up with her home health physical therapy tomorrow to help with further instruction on how to safely use the platform walker. I do want her to follow-up with Dr. miguel, the orthopedist within the next week to 10 days for repeat evaluation. The patient has been offered admission for observation tonight however she defers that at this point. ER warnings are given for any worsening.
[2019-10-31 17:17] VITALS: BP 149/67; O2SAT 97
[2019-10-31 18:29] VITALS: TEMP 98.8
== END 2019-10-31 18:15 | disposition home or self-care (01) ==
LOC: ER 12:28
DX: S52.502A Unspecified fracture of the lower end of left radius, initial encounter for closed fracture (principal); S52.602A Unspecified fracture of lower end of left ulna, initial encounter for closed fracture; J44.9 Chronic obstructive pulmonary disease, unspecified; I10 Essential (primary) hypertension; I50.9 Heart failure, unspecified; Z79.899 Other long term (current) drug therapy; Z79.82 Long term (current) use of aspirin; W01.0XXA Fall on same level from slipping, tripping and stumbling without subsequent striking against object, initial encounter; Y92.009 Unspecified place in unspecified non-institutional (private) residence as the place of occurrence of the external cause
CPT/HCPCS: 36415; 73070; 73110; 80053; 81001; 85025; 87086; 94640; J1885; J7620

== ENCOUNTER → 2019-11-07 | Outpatient (CLI) | payer MEDICARE, OTHER ==
--- NOTE | 2019-11-07 23:20 | RAD ---
EXAM DESCRIPTION: Wrist,Left 3 Views: CR/DR/XR CLINICAL HISTORY: 89 years Female PAIN IN LEFT WRIST COMPARISON: 3 views left wrist October 30. TECHNIQUE: 3 VIEWS AP. Lateral. Oblique. Left wrist. FINDINGS: Fracture of the meta-epiphysis of the distal radius. Carpal bones and articular surface of the radius are shifted in the radial and dorsal direction with radial styloid showing the most displacement. Soft tissue swelling. Fracture line involving the radial scaphoid joint. Widening of the scapholunate joint space. Calcification in the TFCC with fracture of the base of the ulnar styloid and soft tissue swelling. Overall bone density is decreased. Arthrosis of the STT joints and the thumb carpometacarpal joint. Narrowing of the MCP and PIP joints and the IP joint of the thumb. IMPRESSION: Fracture of the meta-epiphysis of the distal left radius with radial and dorsal displacement of the articular surface of the radius which maintains anatomic relationship with the scaphoid and lunate bone. Radial styloid showing the greatest displacement. Widening of the scapholunate joint. Fracture of the base of the ulnar styloid. Electronically signed by: Gaurav Silva MD 11/07/2019 11:18 PM CDT
== END ==
LOC: RAD 10:14
PROVIDERS: ATTEND Orthopaedic Surgery
DX: S52.592A Other fractures of lower end of left radius, initial encounter for closed fracture (principal); S52.615A Nondisplaced fracture of left ulna styloid process, initial encounter for closed fracture

== ENCOUNTER → 2019-11-15 | Outpatient (CLI) | payer MEDICARE, OTHER ==
--- NOTE | 2019-11-15 12:30 | RAD ---
EXAM DESCRIPTION: Wrist,Left 3 Views: CR/DR/XR CLINICAL HISTORY: 89 years Female FX DISTAL END OF RADIUS COMPARISON: November 06. TECHNIQUE: 3 VIEWS AP. Lateral. Oblique. Left wrist. FINDINGS: Median noted is comminuted fracture of the meta-epiphysis of the distal left radius with the distal radial fragments angulated in the dorsal direction. Displacement of large radial fragment and large ulnar fragment. Fragment volar to the fracture site again noted. Possible widening scapho-lunate joint. Narrowing of the space between the scaphoid in the radial fracture component. Stable fracture base of the ulnar styloid. Arthrosis again noted in the STT joints and first carpometacarpal joint. Radiodensities on the radial aspect of the STT joints and scaphoid are stable. IMPRESSION: Comminuted fracture of the meta-epiphysis of the left radius with fragments angulated in a dorsal direction but radial scaphoid orientation maintained. Electronically signed by: Gaurav Silva MD 11/15/2019 12:29 PM CDT
== END ==
LOC: RAD 08:51
PROVIDERS: ATTEND Orthopaedic Surgery
DX: S52.502D Unspecified fracture of the lower end of left radius, subsequent encounter for closed fracture with routine healing (principal)

== ENCOUNTER → 2019-12-06 | Outpatient (CLI) | payer MEDICARE, OTHER ==
--- NOTE | 2019-12-06 16:11 | RAD ---
EXAM: Wrist,Left 3 Views CLINICAL HISTORY: CLOSED FRACTURE OF DISTAL END OF RADIUS. TECHNIQUE: AP, lateral and oblique images. COMPARISON STUDY: Left wrist x-rays from November 15, 2019 FINDINGS: Comminuted intra-articular left distal radius fracture shows ongoing changes of a healing fracture with incomplete fusion. The ulnar styloid fractures unchanged. There are degenerative changes of the lateral carpal row. IMPRESSION: 1. Healing comminuted, intra-articular left distal radius fracture. Ulnar styloid fracture. 2. Moderate osteoarthritic changes of the lateral carpal row. Electronically signed by: Octavio Mayen MD 12/06/2019 4:09 PM CDT
== END ==
LOC: RAD 08:32
PROVIDERS: ATTEND Orthopaedic Surgery
DX: S52.572D Other intraarticular fracture of lower end of left radius, subsequent encounter for closed fracture with routine healing (principal); S52.615A Nondisplaced fracture of left ulna styloid process, initial encounter for closed fracture; M19.032 Primary osteoarthritis, left wrist

== ENCOUNTER 2019-12-14 10:42 | Emergency (ER) | payer MEDICARE, OTHER ==
--- NOTE | 2019-12-14 10:53 | ED.PDOC ---
History of Present Illness - General Time Seen by Provider: 12/14/19 10:49 Source: patient, RN notes reviewed, Vital Signs reviewed Additional Information: 79-year-old female, with history of hypertension, history of arthritis patient presented to the ER because of generalized weakness. Patient stated that for the past 3 days she has been feeling very weak, almost unable to walk and very tired She denies fever chills denies coughing denies chest pain denies abdominal pain and no dysuria Patient did have a broken wrist 2 weeks ago, but denies any recent falls Patient lives alone but she has home health and also Meals on Wheels - History of Present Illness Timing/Duration: other - 3 days Severity: mild Improving Factors: nothing Worsening Factors: nothing Associated Symptoms: denies symptoms Allergies/Adverse Reactions: Allergies Guaifenesin [From Dynex] Allergy (Verified 12/14/19 11:03) Latex Allergy (Verified 12/14/19 11:03) Morphine [From MS Contin] Allergy (Verified 12/14/19 11:03) Pseudoephedrine [From Dynex] Allergy (Verified 12/14/19 11:03) Iron Adverse Reaction (Verified 12/14/19 11:03) Home Medications: Ambulatory Orders Aspirin [Aspirin 81] 81 mg PO DAILY 09/10/12 Citalopram Hydrobromide [Celexa] 20 mg PO BEDTIME 09/10/12 Furosemide [Lasix] 20 mg PO DAILY 09/10/12 Levothyroxine Sodium [Synthroid] 25 mcg PO 0630 09/10/12 Solifenacin Succinate [Vesicare] 5 mg PO BEDTIME 09/10/12 Fluticasone Propionate (Nasal) [Flonase Allergy Relief Ch] 2 spray NA DAILY 02/27/16 Potassium Chloride [K-Tab] 10 meq PO DAILY 02/27/16 Ascorbic Acid [Vitamin C] 500 mg PO DAILY 08/20/19 Diclofenac Sodium (Topical) [Diclofenac Sodium] 1 % TD TID PRN 08/20/19 Famotidine [Pepcid] 1 tablet PO BID 08/20/19 Hydroxychloroquine Sulfate [Plaquenil] 1 tablet PO BID 08/20/19 Lidocaine [Lidocaine Scott] 1 applic TOP PRN PRN 08/20/19 Linzess 72 mcg PO DAILY PRN 08/20/19 Losartan Potassium 1 tablet PO DAILY 08/20/19 Magnesium Oxide 400 mg PO DAILY 08/20/19 Melatonin 5 mg PO BEDTIME 08/20/19 Montelukast [Singulair] 10 mg PO DAILY 08/20/19 Probiotic Product [Probiotic-10] 1 cap PO DAILY 08/20/19 Acetaminophen W/ Codeine [Acetaminophen/Codeine #3 300-30 mg] 1 tab PO Q4HR PRN 12/14/19 Cephalexin Monohydrate [Keflex] 500 mg PO BID #14 cap 12/14/19 Cholecalciferol [Vitamin D3] 5,000 unit PO DAILY 12/14/19 Cyanocobalamin Inj [Vitamin B-12 Inj] 1,000 mcg IM MONTHLY 12/14/19 Omax 3 1 tablet PO DAILY 12/14/19 Pramipexole Dihydrochloride [Mirapex] 1.5 mg PO BEDTIME 12/14/19 Valerian (Valeriana Officinali [Valerian Root] 500 mg PO BEDTIME 12/14/19 Review of Systems - Review of Systems Constitutional: States: no symptoms reported EENTM: States: no symptoms reported Respiratory: States: no symptoms reported Cardiology: States: no symptoms reported Gastrointestinal/Abdominal: States: no symptoms reported Genitourinary: States: no symptoms reported Musculoskeletal: States: no symptoms reported Skin: States: no symptoms reported Neurological: States: no symptoms reported Endocrine: States: no symptoms reported Hematologic/Lymphatic: States: no symptoms reported Past Medical History (General) - Patient Medical History Hx Seizures: No Hx Stroke: Yes Hx Dementia: No Hx Asthma: No Hx of COPD: Yes Hx Cardiac Disorders: Yes Hx Congestive Heart Failure: Yes Hx Pacemaker: No Hx Hypertension: Yes Hx Thyroid Disease: Yes Hx Diabetes: No Hx Gastroesophageal Reflux: Yes Hx Renal Disease: No Hx Cancer: No Hx of HIV: No Hx Hepatitis C: No Hx MRSA: No - Vaccination History Hx Tetanus, Diphtheria Vaccination: No Hx Influenza Vaccination: Yes Hx Pneumococcal Vaccination: Yes - Social History Hx Tobacco Use: No Hx Chewing Tobacco Use: No Hx Alcohol Use: No Hx Substance Use: No Hx Substance Use Treatment: No Hx Depression: No Hx Physical Abuse: No Hx Emotional Abuse: No Hx Suspected Abuse: No - Female History Patient : No Family Medical History - Family History Mother Family History: Unknown Living Status: Hx Family Hypertension: Yes Physical Exam - Physical Exam General Appearance: Well Developed, Well Groomed, Well Hydrated, Well Nourished Ears, Nose, Throat: hearing grossly normal, normal ENT inspection, normal pharynx Respiratory: chest non-tender, lungs clear, normal breath sounds, no respiratory distress, no accessory muscle use Cardiovascular/Chest: normal peripheral pulses, regular rate, rhythm, no edema, no gallop, no JVD, no murmur Gastrointestinal/Abdominal: normal bowel sounds, non tender, soft, no organomegaly, no pulsatile mass Back Exam: normal inspection, no CVA tenderness, no vertebral tenderness Extremity: normal range of motion, non-tender, normal inspection, no pedal edema 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 The heart size is normal. The pulmonary vascularity is unremarkable. The lungs are clear. There is no consolidation, infiltrate, pleural effusion, or pneumothorax. IMPRESSION: No evidence of active pulmonary disease. 12/14/19 12:33 Patient troponins were negative EKG was normal chest x-ray did not show any evidence of renal tract infection, no leukocytosis but patient urine is consistent with a tract infection, I decided to give the patient a dose of IV Rocephin as the patient vital signs are remained stable she is not altered no vomiting no chest pain no abdominal pain patient will be discharged home with antibiotics for home Patient given to return to the ER immediately if there is any high fever abdominal pain diarrhea bloody stools blood in the urine peripheral urination unable to holding fluids down vomiting confusion shortness of breath or any other concerns This patient does have good social support Departure - Departure Clinical Impression: UTI (urinary tract infection) Qualifiers: Urinary tract infection type: site unspecified Hematuria presence: without hematuria Qualified Code(s): N39.0 - Urinary tract infection, site not specified Disposition: Discharge to Home or Self Care Condition: Fair Instructions: Urinary Tract Infection, Adult (DC) Diet: resume usual diet Referrals: Mathieu Smiley MD [Primary Care Provider] - 1-2 Weeks Prescriptions: Cephalexin Monohydrate [Keflex] 500 mg PO BID #14 cap Home Medications: Ambulatory Orders Aspirin [Aspirin 81] 81 mg PO DAILY 09/10/12 Citalopram Hydrobromide [Celexa] 20 mg PO BEDTIME 09/10/12 Furosemide [Lasix] 20 mg PO DAILY 09/10/12 Levothyroxine Sodium [Synthroid] 25 mcg PO 0630 09/10/12 Solifenacin Succinate [Vesicare] 5 mg PO BEDTIME 09/10/12 Fluticasone Propionate (Nasal) [Flonase Allergy Relief Ch] 2 spray NA DAILY 02/27/16 Potassium Chloride [K-Tab] 10 meq PO DAILY 02/27/16 Ascorbic Acid [Vitamin C] 500 mg PO DAILY 08/20/19 Diclofenac Sodium (Topical) [Diclofenac Sodium] 1 % TD TID PRN 08/20/19 Famotidine [Pepcid] 1 tablet PO BID 08/20/19 Hydroxychloroquine Sulfate [Plaquenil] 1 tablet PO BID 08/20/19 Lidocaine [Lidocaine Scott] 1 applic TOP PRN PRN 08/20/19 Linzess 72 mcg PO DAILY PRN 08/20/19 Losartan Potassium 1 tablet PO DAILY 08/20/19 Magnesium Oxide 400 mg PO DAILY 08/20/19 Melatonin 5 mg PO BEDTIME 08/20/19 Montelukast [Singulair] 10 mg PO DAILY 08/20/19 Probiotic Product [Probiotic-10] 1 cap PO DAILY 08/20/19 Acetaminophen W/ Codeine [Acetaminophen/Codeine #3 300-30 mg] 1 tab PO Q4HR PRN 12/14/19 Cephalexin Monohydrate [Keflex] 500 mg PO BID #14 cap 12/14/19 Cholecalciferol [Vitamin D3] 5,000 unit PO DAILY 12/14/19 Cyanocobalamin Inj [Vitamin B-12 Inj] 1,000 mcg IM MONTHLY 12/14/19 Omax 3 1 tablet PO DAILY 12/14/19 Pramipexole Dihydrochloride [Mirapex] 1.5 mg PO BEDTIME 12/14/19 Valerian (Valeriana Officinali [Valerian Root] 500 mg PO BEDTIME 12/14/19 Additional Instructions: return to the ER immediately if there is any high fever abdominal pain diarrhea bloody stools blood in the urine peripheral urination unable to holding fluids down vomiting confusion shortness of breath or any other concerns
--- NOTE | 2019-12-14 11:08 | RAD ---
EXAM: Chest,1 View CLINICAL INDICATION: Weakness COMPARISON: 08/19/2019 FINDINGS: A single view of the chest was obtained. The heart size is normal. The pulmonary vascularity is unremarkable. The lungs are clear. There is no consolidation, infiltrate, pleural effusion, or pneumothorax. IMPRESSION: No evidence of active pulmonary disease. Electronically signed by: Greg Briscoe MD 12/14/2019 11:06 AM CDT
[2019-12-14] MEDS ORDERED: cefTRIAXone SODIUM 1 GM in SODIUM CHL 0.9% 50ML MIN-BAG+ 50 ML IVPB ONE (12:33)
[2019-12-14 13:34] VITALS: BP 152/74; TEMP 97.6; O2SAT 95
== END 2019-12-14 13:34 | disposition home or self-care (01) ==
LOC: ER 10:42
DX: N39.0 Urinary tract infection, site not specified (principal); I11.0 Hypertensive heart disease with heart failure; I50.9 Heart failure, unspecified; J44.9 Chronic obstructive pulmonary disease, unspecified
CPT/HCPCS: 36415; 71045; 80053; 81001; 84443; 84484; 85025; 87086; 93005; J0696; J7050

== ENCOUNTER → 2020-01-03 | Outpatient (CLI) | payer MEDICARE, OTHER | LOC: YCHH 09:10 | PROVIDERS: ATTEND Obstetrics & Gynecology | DX: N39.0 Urinary tract infection, site not specified (principal) ==

== ENCOUNTER → 2020-01-06 | Outpatient (CLI) | payer MEDICARE, OTHER ==
--- NOTE | 2020-01-06 09:12 | RAD ---
EXAM DESCRIPTION: Wrist,Left 3 Views CLINICAL HISTORY: 89 years, Female, CLOSED FRACTURE OF DISTAL END OF LEFT RADIUS COMPARISON: 12/06/2019. Additional radiographs dating back to 10/31/2019. TECHNIQUE: Frontal, lateral, and oblique views of the left wrist was obtained. FINDINGS: Images of the left wrist redemonstrated a healing distal radius impacted intra-articular fracture with slightly increased callus formation and stable osseous alignment. Residual fracture lucency persists. Ulnar styloid base healing fracture, unchanged. Osteoarthritic changes of the radiocarpal, thumb CMC and MCP joints. Diffuse osteopenia. Electronically signed by: Bandar Stephenson DO 01/06/2020 9:10 AM CDT
== END ==
LOC: RAD 08:11
PROVIDERS: ATTEND Orthopaedic Surgery
DX: S52.502D Unspecified fracture of the lower end of left radius, subsequent encounter for closed fracture with routine healing (principal); S52.615D Nondisplaced fracture of left ulna styloid process, subsequent encounter for closed fracture with routine healing; M19.042 Primary osteoarthritis, left hand; M85.9 Disorder of bone density and structure, unspecified

== ENCOUNTER 2020-01-07 17:09 | Emergency (ER) | payer MEDICARE, OTHER ==
--- NOTE | 2020-01-07 18:48 | US ---
US LOWER EXTREMITY VEINS HISTORY: Leg pain and swelling. COMPARISON: 04/29/2019 TECHNIQUE: Grayscale, color Doppler, and spectral Doppler images of the left lower extremity were performed. FINDINGS: The common femoral, superficial femoral and popliteal veins are patent and compressible. Normal augmentation and color Doppler blood flow in the aforementioned veins. The visualized calf veins are also patent. Diffuse subcutaneous edema is present. IMPRESSION: No DVT in the left lower extremity. Electronically signed by: Ben López MD 01/07/2020 6:46 PM CDT
--- NOTE | 2020-01-07 19:27 | ED.PDOC ---
History of Present Illness - General Chief Complaint: General Stated Complaint: left calf pain with ambulation Time Seen by Provider: 01/07/20 19:22 Source: patient, RN notes reviewed, Vital Signs reviewed Exam Limitations: no limitations - History of Present Illness Initial Comments: Patient is an 89-year-old white female who presents with complaints of left lower extremity pain patient also complains of swelling in her left calf. This is similar to the pain she had when she had a blood clot previously. Pain is sharp and throbbing in nature. Worse with walking and better with rest. Patient denies any fevers, chills, nausea, vomiting, diarrhea. Patient denies any chest pain or shortness of breath. Timing/Duration: 24 hours Severity: moderate Improving Factors: rest Worsening Factors: movement Associated Symptoms: denies symptoms Allergies/Adverse Reactions: Allergies Guaifenesin [From Dynex] Allergy (Verified 01/07/20 17:37) Latex Allergy (Verified 01/07/20 17:37) Morphine [From MS Contin] Allergy (Verified 01/07/20 17:37) Pseudoephedrine [From Dynex] Allergy (Verified 01/07/20 17:37) Iron Adverse Reaction (Verified 01/07/20 17:37) Home Medications: Ambulatory Orders Aspirin [Aspirin 81] 81 mg PO DAILY 09/10/12 Citalopram Hydrobromide [Celexa] 20 mg PO BEDTIME 09/10/12 Furosemide [Lasix] 20 mg PO DAILY 09/10/12 Levothyroxine Sodium [Synthroid] 25 mcg PO 0630 09/10/12 Solifenacin Succinate [Vesicare] 5 mg PO BEDTIME 09/10/12 Fluticasone Propionate (Nasal) [Flonase Allergy Relief Ch] 2 spray NA DAILY 02/27/16 Potassium Chloride [K-Tab] 10 meq PO DAILY 02/27/16 Ascorbic Acid [Vitamin C] 500 mg PO DAILY 08/20/19 Diclofenac Sodium (Topical) [Diclofenac Sodium] 1 % TD TID PRN 08/20/19 Famotidine [Pepcid] 1 tablet PO BID 08/20/19 Hydroxychloroquine Sulfate [Plaquenil] 1 tablet PO BID 08/20/19 Lidocaine [Lidocaine Scott] 1 applic TOP PRN PRN 08/20/19 Linzess 72 mcg PO DAILY PRN 08/20/19 Losartan Potassium 1 tablet PO DAILY 08/20/19 Magnesium Oxide 400 mg PO DAILY 08/20/19 Melatonin 5 mg PO BEDTIME 08/20/19 Montelukast [Singulair] 10 mg PO DAILY 08/20/19 Probiotic Product [Probiotic-10] 1 cap PO DAILY 08/20/19 Acetaminophen W/ Codeine [Acetaminophen/Codeine #3 300-30 mg] 1 tab PO Q4HR PRN 12/14/19 Cephalexin Monohydrate [Keflex] 500 mg PO BID #14 cap 12/14/19 Cholecalciferol [Vitamin D3] 5,000 unit PO DAILY 12/14/19 Cyanocobalamin Inj [Vitamin B-12 Inj] 1,000 mcg IM MONTHLY 12/14/19 Omax 3 1 tablet PO DAILY 12/14/19 Pramipexole Dihydrochloride [Mirapex] 1.5 mg PO BEDTIME 12/14/19 Valerian (Valeriana Officinali [Valerian Root] 500 mg PO BEDTIME 12/14/19 Review of Systems - Review of Systems Constitutional: States: no symptoms reported, see HPI EENTM: States: no symptoms reported Respiratory: States: no symptoms reported Cardiology: States: no symptoms reported Gastrointestinal/Abdominal: States: no symptoms reported Genitourinary: States: no symptoms reported Musculoskeletal: States: see HPI, muscle pain - Left calf Skin: States: no symptoms reported Neurological: States: no symptoms reported Endocrine: States: no symptoms reported Hematologic/Lymphatic: States: no symptoms reported All other Systems: Reviewed and Negative Past Medical History (General) - Patient Medical History Hx Seizures: No Hx Stroke: Yes Hx Dementia: No Hx Asthma: No Hx of COPD: Yes Hx Cardiac Disorders: Yes Hx Congestive Heart Failure: Yes Hx Pacemaker: No Hx Hypertension: Yes Hx Thyroid Disease: Yes Hx Diabetes: No Hx Gastroesophageal Reflux: Yes Hx Renal Disease: No Hx Cancer: No Hx of HIV: No Hx Hepatitis C: No Hx MRSA: No Surgical History: Hysterectomy, other - Vaccination History Hx Tetanus, Diphtheria Vaccination: No Hx Influenza Vaccination: Yes Hx Pneumococcal Vaccination: Yes - Social History Hx Tobacco Use: No Hx Chewing Tobacco Use: No Hx Alcohol Use: No Hx Substance Use: No Hx Substance Use Treatment: No Hx Depression: No Hx Physical Abuse: No Hx Emotional Abuse: No Hx Suspected Abuse: No - Activities of Daily Living Hospice Agency (if applicable):: None - Female History Patient is a Female of Child Bearing Age (10 -59 yrs old): No Patient : No Family Medical History - Family History Mother Family History: Unknown Living Status: Hx Family Hypertension: Yes Physical Exam - Physical Exam General Appearance: Alert, Comfortable, Well Developed, Well Groomed, Well Hydrated, Well Nourished Eye Exam: bilateral normal Ears, Nose, Throat: hearing grossly normal, normal ENT inspection, normal pharynx Neck: non-tender, full range of motion, supple, normal inspection Respiratory: chest non-tender, lungs clear, normal breath sounds, no respiratory distress, no accessory muscle use Cardiovascular/Chest: normal peripheral pulses, regular rate, rhythm, no edema, no gallop, no JVD, no murmur Peripheral Pulses: radial,right: 2+, radial,left: 2+, dorsalis pedis,right: 2+, dorsalis pedis,left: 2+, posterior tibialis,right: 2+, posterior tibialis,left: 2+ Gastrointestinal/Abdominal: normal bowel sounds, non tender, soft, no organomegaly, no pulsatile mass Back Exam: normal inspection, no CVA tenderness, no vertebral tenderness Extremity: normal range of motion, no pedal edema, normal capillary refill, calf tenderness - Mid calf. No cords felt. Negative Homans sign. 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 01/07/20 19:28 Ultrasound is negative for DVT. I believe patient is strained the calf muscle. Plan on discharge home with follow-up with PCP. Have recommended rest ice compression elevation for the pain. Patient to alternate Tylenol Motrin. Plan discharge home. Discussed this plan of care with the patient she voices understanding and agreement. Mohamud Fonseca M.D. #[id number] - Results/Orders Results/Orders: US LOWER EXTREMITY VEINS HISTORY: Leg pain and swelling. COMPARISON: 04/29/2019 TECHNIQUE: Grayscale, color Doppler, and spectral Doppler images of the left lower extremity were performed. FINDINGS: The common femoral, superficial femoral and popliteal veins are patent and compressible. Normal augmentation and color Doppler blood flow in the aforementioned veins. The visualized calf veins are also patent. Diffuse subcutaneous edema is present. IMPRESSION: No DVT in the left lower extremity. Electronically signed by: Ben López MD 01/07/2020 6:46 PM CDT Departure - Departure Clinical Impression: Sprain, gastrocnemius Time of Disposition: 19:29 Disposition: Discharge to Home or Self Care Condition: Good Departure Forms: ED Discharge - Pt. Copy, Patient Portal Self Enrollment Instructions: Muscle Strain (DC), Knee Sprain (DC) Diet: resume usual diet Activity: increase activity as tolerated Referrals: ROYAL SAMANIEGO IV, [facility]ER [Primary Care Provider] - 1-5 Days Home Medications: Ambulatory Orders Aspirin [Aspirin 81] 81 mg PO DAILY 09/10/12 Citalopram Hydrobromide [Celexa] 20 mg PO BEDTIME 09/10/12 Furosemide [Lasix] 20 mg PO DAILY 09/10/12 Levothyroxine Sodium [Synthroid] 25 mcg PO 0630 09/10/12 Solifenacin Succinate [Vesicare] 5 mg PO BEDTIME 09/10/12 Fluticasone Propionate (Nasal) [Flonase Allergy Relief Ch] 2 spray NA DAILY 02/27/16 Potassium Chloride [K-Tab] 10 meq PO DAILY 02/27/16 Ascorbic Acid [Vitamin C] 500 mg PO DAILY 08/20/19 Diclofenac Sodium (Topical) [Diclofenac Sodium] 1 % TD TID PRN 08/20/19 Famotidine [Pepcid] 1 tablet PO BID 08/20/19 Hydroxychloroquine Sulfate [Plaquenil] 1 tablet PO BID 08/20/19 Lidocaine [Lidocaine Scott] 1 applic TOP PRN PRN 08/20/19 Linzess 72 mcg PO DAILY PRN 08/20/19 Losartan Potassium 1 tablet PO DAILY 08/20/19 Magnesium Oxide 400 mg PO DAILY 08/20/19 Melatonin 5 mg PO BEDTIME 08/20/19 Montelukast [Singulair] 10 mg PO DAILY 08/20/19 Probiotic Product [Probiotic-10] 1 cap PO DAILY 08/20/19 Acetaminophen W/ Codeine [Acetaminophen/Codeine #3 300-30 mg] 1 tab PO Q4HR PRN 12/14/19 Cephalexin Monohydrate [Keflex] 500 mg PO BID #14 cap 12/14/19 Cholecalciferol [Vitamin D3] 5,000 unit PO DAILY 12/14/19 Cyanocobalamin Inj [Vitamin B-12 Inj] 1,000 mcg IM MONTHLY 12/14/19 Omax 3 1 tablet PO DAILY 12/14/19 Pramipexole Dihydrochloride [Mirapex] 1.5 mg PO BEDTIME 12/14/19 Valerian (Valeriana Officinali [Valerian Root] 500 mg PO BEDTIME 12/14/19
[2020-01-07 19:40] VITALS: BP 127/58; TEMP 97; O2SAT 95
== END 2020-01-07 19:40 | disposition home or self-care (01) ==
LOC: ER 17:09
DX: S86.912A Strain of unspecified muscle(s) and tendon(s) at lower leg level, left leg, initial encounter (principal); I11.0 Hypertensive heart disease with heart failure; I50.9 Heart failure, unspecified; M79.662 Pain in left lower leg; J44.9 Chronic obstructive pulmonary disease, unspecified; Z86.718 Personal history of other venous thrombosis and embolism; Z79.82 Long term (current) use of aspirin; X58.XXXA Exposure to other specified factors, initial encounter; Y92.9 Unspecified place or not applicable

== ENCOUNTER 2020-01-09 13:29 | Emergency (ER) | payer MEDICARE, OTHER ==
[2020-01-09] MEDS ORDERED: FAMOTIDINE IV PREMIX 20 MG in PREMIX BAG 1 BAG IVPB ONE (13:45)
[2020-01-09] MEDS ORDERED: methylPREDNISolone SODIUM SUC 125 MG/2 ML VIAL IV ONE (13:45)
--- NOTE | 2020-01-09 13:48 | ED.PDOC ---
History of Present Illness - General Time Seen by Provider: 01/09/20 13:41 Source: patient, RN notes reviewed, Vital Signs reviewed, EMS notes reviewed, RN/MD Exam Limitations: no limitations - History of Present Illness Initial Comments: Patient presents to ED by EMS for skin rash and allergic reaction. States she was seen in ED 3 days ago for leg pain and prescribed gabapentin and Bactrim for a UTI and she started both of these medications 3 days ago. The following day she developed a red rash to bilateral forearms then to chest and right lower leg. The areas are itchy, but she denies fever, nausea, vomiting, facial swelling, difficulty breathing. States she is allergic to Benadryl so has not taken anything at home for her symptoms. Continued to have the red itchy rash so came to ED for evaluation today. Allergies/Adverse Reactions: Allergies Guaifenesin [From Dynex] Allergy (Verified 01/09/20 13:55) Latex Allergy (Verified 01/09/20 13:55) Morphine [From MS Contin] Allergy (Verified 01/09/20 13:55) Pseudoephedrine [From Dynex] Allergy (Verified 01/09/20 13:55) Iron Adverse Reaction (Verified 01/09/20 13:55) Home Medications: Ambulatory Orders Aspirin [Aspirin 81] 81 mg PO DAILY 09/10/12 Citalopram Hydrobromide [Celexa] 20 mg PO BEDTIME 09/10/12 Furosemide [Lasix] 20 mg PO DAILY 09/10/12 Levothyroxine Sodium [Synthroid] 25 mcg PO 0630 09/10/12 Solifenacin Succinate [Vesicare] 5 mg PO BEDTIME 09/10/12 Fluticasone Propionate (Nasal) [Flonase Allergy Relief Ch] 2 spray NA DAILY 02/27/16 Potassium Chloride [K-Tab] 10 meq PO DAILY 02/27/16 Ascorbic Acid [Vitamin C] 500 mg PO DAILY 08/20/19 Diclofenac Sodium (Topical) [Diclofenac Sodium] 1 % TD TID PRN 08/20/19 Famotidine [Pepcid] 1 tablet PO BID 08/20/19 Hydroxychloroquine Sulfate [Plaquenil] 1 tablet PO BID 08/20/19 Lidocaine [Lidocaine Scott] 1 applic TOP PRN PRN 08/20/19 Linzess 72 mcg PO DAILY PRN 08/20/19 Losartan Potassium 1 tablet PO DAILY 08/20/19 Magnesium Oxide 400 mg PO DAILY 08/20/19 Melatonin 5 mg PO BEDTIME 08/20/19 Montelukast [Singulair] 10 mg PO DAILY 08/20/19 Probiotic Product [Probiotic-10] 1 cap PO DAILY 08/20/19 Acetaminophen W/ Codeine [Acetaminophen/Codeine #3 300-30 mg] 1 tab PO Q4HR PRN 12/14/19 Cephalexin Monohydrate [Keflex] 500 mg PO BID #14 cap 12/14/19 Cholecalciferol [Vitamin D3] 5,000 unit PO DAILY 12/14/19 Cyanocobalamin Inj [Vitamin B-12 Inj] 1,000 mcg IM MONTHLY 12/14/19 Omax 3 1 tablet PO DAILY 12/14/19 Pramipexole Dihydrochloride [Mirapex] 1.5 mg PO BEDTIME 12/14/19 Valerian (Valeriana Officinali [Valerian Root] 500 mg PO BEDTIME 12/14/19 Cephalexin Monohydrate [Keflex] 500 mg PO QID 7 Days #28 cap 01/09/20 Prednisone 40 mg PO DAILY 4 Days #8 tab 01/09/20 Review of Systems - Review of Systems Constitutional: Denies: chills, fever, weakness EENTM: Denies: nose congestion, throat pain, throat swelling, mouth swelling Respiratory: Denies: cough, short of breath Cardiology: Denies: chest pain, edema, palpitations, syncope Gastrointestinal/Abdominal: Denies: abdominal pain, nausea Skin: States: see HPI Neurological: Denies: headache, paresthesia All other Systems: Reviewed and Negative Past Medical History (General) - Patient Medical History Hx Seizures: No Hx Stroke: Yes Hx Dementia: No Hx Asthma: No Hx of COPD: Yes Hx Cardiac Disorders: Yes Hx Congestive Heart Failure: Yes Hx Pacemaker: No Hx Hypertension: Yes Hx Thyroid Disease: Yes Hx Diabetes: No Hx Gastroesophageal Reflux: Yes Hx Renal Disease: No Hx Cancer: No Hx of HIV: No Hx Hepatitis C: No Hx MRSA: No - Vaccination History Hx Tetanus, Diphtheria Vaccination: No Hx Influenza Vaccination: Yes Hx Pneumococcal Vaccination: Yes - Social History Hx Tobacco Use: No Hx Chewing Tobacco Use: No Hx Alcohol Use: No Hx Substance Use: No Hx Substance Use Treatment: No Hx Depression: No Hx Physical Abuse: No Hx Emotional Abuse: No Hx Suspected Abuse: No - Female History Patient : No Family Medical History - Family History Mother Family History: Unknown Living Status: Hx Family Hypertension: Yes Physical Exam - Physical Exam General Appearance: Alert, Comfortable, No apparent distress Ears, Nose, Throat: other - Patient has no lip, tongue or facial edema. Neck: full range of motion, supple Respiratory: chest non-tender, lungs clear, normal breath sounds, no respiratory distress, no accessory muscle use, other - Good air movement. No wheezes or stridor. Cardiovascular/Chest: regular rate, rhythm, no edema Gastrointestinal/Abdominal: non tender, soft, no pulsatile mass Back Exam: no CVA tenderness, no vertebral tenderness Extremity: non-tender, normal inspection, no pedal edema, no calf tenderness Neurologic: no motor/sensory deficits, alert, normal mood/affect Skin Exam: other - There are areas of dry erythematous rash to bilateral forearms, anterior right lower leg and chest wall consistent with urticaria Progress - Progress Progress: 01/09/20 13:50 Patient presents the ED with erythematous rash to trunk and extremities after starting Bactrim and gabapentin. States she has not taken either of these medications in the past. Denies any difficulty breathing or swallowing. She has no facial edema on exam. She is allergic to Benadryl so IV steroids and Pepcid have been given and will monitor in ED. 01/09/20 14:55 Patient was recently started on Bactrim and gabapentin and an urticarial rash began the following day. She has had no difficulty breathing and no facial edema. Monitored in the ED with stable oxygen sats and no respiratory distress. Labs are reassuring. I have discussed with patient to stop taking Bactrim and gabapentin and will treat with Keflex and a short course of steroids for the allergic reaction. I have asked her to follow-up with her PCP in 1 to 2 days with continued outpatient evaluation. Strict return precautions given. - Results/Orders Results/Orders: Laboratory Results - last 24 hr 01/09/20 01/09/20 13:25 13:25 WBC 5.2 RBC 4.15 L Hgb 10.9 L Hct 33.4 L MCV 80.4 L MCH 26.2 L MCHC 32.6 L RDW 16.4 H Plt Count 174 MPV 7.3 L Absolute Neuts (auto) 3.30 Absolute Lymphs (auto) 1.20 Absolute Monos (auto) 0.50 Absolute Eos (auto) 0.10 Absolute Basos (auto) 0.00 Neutrophils % 63.5 Lymphocytes % 23.9 Monocytes % 9.3 H Eosinophils % 2.6 Basophils % 0.7 Sodium 135 Potassium 4.5 Chloride 102 Carbon Dioxide 24 Anion Gap 13.5 BUN 29 H Creatinine 1.33 H BUN/Creatinine Ratio 21.8 H Random Glucose 113 H Serum Osmolality 276.7 Calcium 8.9 Total Bilirubin 0.6 AST 23 ALT 16 Alkaline Phosphatase 63 Serum Total Protein 7.1 Albumin 3.9 Globulin 3.2 Albumin/Globulin Ratio 1.2 Departure - Departure Clinical Impression: Urticaria Acute allergic reaction Qualifiers: Encounter type: initial encounter Qualified Code(s): T78.40XA - Allergy, unspecified, initial encounter UTI (urinary tract infection) Qualifiers: Urinary tract infection type: acute cystitis Hematuria presence: without hematuria Qualified Code(s): N30.00 - Acute cystitis without hematuria Time of Disposition: 14:49 Disposition: Discharge to Home or Self Care Condition: Good Instructions: Adverse Drug Reactions, Adult (DC) Activity: increase activity as tolerated Referrals: ROYAL SAMANIEGO IV, [employer]ECUTIVE [Primary Care Provider] - 1-2 Days Prescriptions: Cephalexin Monohydrate [Keflex] 500 mg PO QID 7 Days #28 cap Prednisone 40 mg PO DAILY 4 Days #8 tab Home Medications: Ambulatory Orders Aspirin [Aspirin 81] 81 mg PO DAILY 09/10/12 Citalopram Hydrobromide [Celexa] 20 mg PO BEDTIME 09/10/12 Furosemide [Lasix] 20 mg PO DAILY 09/10/12 Levothyroxine Sodium [Synthroid] 25 mcg PO 0630 09/10/12 Solifenacin Succinate [Vesicare] 5 mg PO BEDTIME 09/10/12 Fluticasone Propionate (Nasal) [Flonase Allergy Relief Ch] 2 spray NA DAILY 02/27/16 Potassium Chloride [K-Tab] 10 meq PO DAILY 02/27/16 Ascorbic Acid [Vitamin C] 500 mg PO DAILY 08/20/19 Diclofenac Sodium (Topical) [Diclofenac Sodium] 1 % TD TID PRN 08/20/19 Famotidine [Pepcid] 1 tablet PO BID 08/20/19 Hydroxychloroquine Sulfate [Plaquenil] 1 tablet PO BID 08/20/19 Lidocaine [Lidocaine Scott] 1 applic TOP PRN PRN 08/20/19 Linzess 72 mcg PO DAILY PRN 08/20/19 Losartan Potassium 1 tablet PO DAILY 08/20/19 Magnesium Oxide 400 mg PO DAILY 08/20/19 Melatonin 5 mg PO BEDTIME 08/20/19 Montelukast [Singulair] 10 mg PO DAILY 08/20/19 Probiotic Product [Probiotic-10] 1 cap PO DAILY 08/20/19 Acetaminophen W/ Codeine [Acetaminophen/Codeine #3 300-30 mg] 1 tab PO Q4HR PRN 12/14/19 Cephalexin Monohydrate [Keflex] 500 mg PO BID #14 cap 12/14/19 Cholecalciferol [Vitamin D3] 5,000 unit PO DAILY 12/14/19 Cyanocobalamin Inj [Vitamin B-12 Inj] 1,000 mcg IM MONTHLY 12/14/19 Omax 3 1 tablet PO DAILY 12/14/19 Pramipexole Dihydrochloride [Mirapex] 1.5 mg PO BEDTIME 12/14/19 Valerian (Valeriana Officinali [Valerian Root] 500 mg PO BEDTIME 12/14/19 Cephalexin Monohydrate [Keflex] 500 mg PO QID 7 Days #28 cap 01/09/20 Prednisone 40 mg PO DAILY 4 Days #8 tab 01/09/20
[2020-01-09 15:14] VITALS: BP 130/54; TEMP 97; O2SAT 94
== END 2020-01-09 15:10 | disposition home or self-care (01) ==
LOC: ER 13:29
DX: N30.00 Acute cystitis without hematuria (principal); L50.0 Allergic urticaria; I11.0 Hypertensive heart disease with heart failure; I50.9 Heart failure, unspecified; J44.9 Chronic obstructive pulmonary disease, unspecified; Z86.73 Personal history of transient ischemic attack (TIA), and cerebral infarction without residual deficits; Z79.82 Long term (current) use of aspirin; Z79.899 Other long term (current) drug therapy
CPT/HCPCS: 36415; 80053; 85025; J2930; J3490

== ENCOUNTER → 2020-01-21 | Outpatient (CLI) | payer MEDICARE, OTHER | LOC: YCHH 16:03 | PROVIDERS: ATTEND Obstetrics & Gynecology | DX: N39.0 Urinary tract infection, site not specified (principal) ==

== ENCOUNTER → 2020-03-06 | Outpatient (CLI) | payer MEDICARE, OTHER | LOC: NC 17:45 | PROVIDERS: ATTEND Family Medicine | DX: R30.0 Dysuria (principal) ==

== ENCOUNTER → 2020-04-21 | Outpatient (CLI) | payer MEDICARE, OTHER | LOC: NC 10:16 | PROVIDERS: ATTEND Family Medicine | DX: M19.072 Primary osteoarthritis, left ankle and foot (principal); J44.9 Chronic obstructive pulmonary disease, unspecified; E03.9 Hypothyroidism, unspecified; D51.9 Vitamin B12 deficiency anemia, unspecified ==

== ENCOUNTER → 2020-05-13 | Outpatient (CLI) | payer MEDICARE, OTHER ==
--- NOTE | 2020-05-13 13:41 | RAD ---
EXAM DESCRIPTION: Hip,Right 2 Views CLINICAL HISTORY: 89 years, Female, PAIN IN RIGHT HIP COMPARISON: June 20, 2019 TECHNIQUE: X-ray 2 view right hip FINDINGS: Total hip replacement in good position. No fracture. No dislocation. As previously noted there is slight lateral bulging of the femoral diaphysis at the tip of the femoral component with lucency surrounding the tip of the prosthesis. IMPRESSION: 1. 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
--- NOTE | 2020-05-13 13:42 | RAD ---
EXAM DESCRIPTION: Pelvis CLINICAL HISTORY: 89 years Female, PAIN IN RIGHT HIP COMPARISON: August 05, 2019 FINDINGS: X-ray one view pelvis AP. No fracture. No bone lesion. Proximal aspect of right hip prosthesis is unremarkable. Diffuse decreased bone density-osteopenia. 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 IMPRESSION: No acute abnormality of the pelvis. Electronically signed by: Feliberto Cancino MD 05/13/2020 1:40 PM [facility]
== END ==
LOC: LAB.O 07:57
PROVIDERS: ATTEND Orthopaedic Surgery
DX: T84.030A Mechanical loosening of internal right hip prosthetic joint, initial encounter (principal); T84.50XD Infection and inflammatory reaction due to unspecified internal joint prosthesis, subsequent encounter

== ENCOUNTER → 2020-06-01 | Outpatient (CLI) | payer MEDICARE, OTHER ==
--- NOTE | 2020-06-02 10:29 | NM ---
EXAM DESCRIPTION: Bone Scan, 3Phase: Nuclear Medicine CLINICAL HISTORY: 89 years Female LOOSENING OF RIGHT HIP JOINT PROSTHESIS COMPARISON: Radiographs of the right hip and radiographs of the pelvis May 13. TECHNIQUE: Patient injected with 24.8 mCi of technetium 99M MDP IV. Immediate flow gamma camera images were obtained of the pelvis, hips, and proximal femurs, anterior projection.. "Blood pool" images were then obtained of the pelvis, hips, and proximal femurs, anterior and posterior projections. Delayed gamma camera images pelvis hips and proximal femurs from anterior and posterior projections were obtained 3 hr after injection. FINDINGS: First-flow phase: Radiopharmaceutical well-visualized in the aorta and major vessels of the lower extremity. No abnormal flow or activity in the region of the right hip prosthesis. Second-blood pool phase: Photopenia is noted in the region of the right femoral head, femoral neck, and location of the prosthetic stem in the proximal femur. More anterior than posterior. Normal radiopharmaceutical activity and uptake is noted around the prosthesis. Third-delayed phase: Increased activity/uptake in the right acetabulum, right greater trochanter, and around the distal tip of the femoral prosthetic stem. This is abutting the photopenic region corresponding to the prosthesis. Best seen in the anterior projection. No significantly abnormal activity in the left hip joint space bony pelvis, or left femur. IMPRESSION: Reactive changes in the right acetabulum, right greater trochanter, and in the bone abutting the distal femoral stem of the right total hip arthroplasty, seen on the delayed phase only. No abnormal flow or blood pool activity in these sites. Findings are NOT CONSISTENT with right hip prosthetic loosening or infection. Electronically signed by: Gaurav Silva MD 06/02/2020 10:28 AM [facility]
== END ==
LOC: NM 08:52
PROVIDERS: ATTEND Orthopaedic Surgery
DX: M25.551 Pain in right hip (principal); M89.9 Disorder of bone, unspecified; Z96.641 Presence of right artificial hip joint
CPT/HCPCS: 78315; A9503

== ENCOUNTER → 2020-06-04 | Outpatient (CLI) | payer MEDICARE, OTHER | LOC: LAB.O 14:23 | PROVIDERS: ATTEND Orthopaedic Surgery | DX: M06.9 Rheumatoid arthritis, unspecified (principal); T84.84XA Pain due to internal orthopedic prosthetic devices, implants and grafts, initial encounter; M25.50 Pain in unspecified joint ==

== ENCOUNTER 2020-06-15 12:02 | Inpatient (IN) | payer MEDICARE, OTHER ==
[2020-06-15] MEDS ORDERED: ONDANSETRON ODT 8 MG TAB SL ONE (12:15)
[2020-06-15] MEDS ORDERED: SODIUM CHLORIDE 0.9% 1000ML 1,000 ML IVS ONE ×2 (12:16→13:46)
[2020-06-15] MEDS ORDERED: PANTOPRAZOLE SODIUM IV 40 MG VIAL IV ONE (12:17)
--- NOTE | 2020-06-15 13:37 | RAD ---
1 radiographic chest. 2. Radiographs of the Abdomen. Indication: nv Comparison: None. Impression: Cardiomegaly. Atherosclerosis aorta. Elevation right hemidiaphragm. Mild bilateral basilar atelectasis. No pleural effusion or pneumothorax. Suture anchors the right humeral head with questionable loosening. Cholecystectomy clips. No free air. Bowel gas pattern nonspecific. No abnormal calcifications. No acute osseous abnormality. Electronically signed by: Bernardo Sy MD 06/15/2020 1:36 PM [facility]
--- NOTE | 2020-06-15 13:38 | RAD ---
2 radiographs right hip Indication: pain Comparison: May 13, 2020 Impression: Postsurgical changes right hip arthroplasty. No periprosthetic fracture identified. Several well-corticated ossifications superior to the greater trochanter. Osteopenia. If this is a new finding, DEXA scan recommended as well as evaluation for possible osteoporosis treatment. Electronically signed by: Bernardo Sy MD 06/15/2020 1:37 PM [facility]
--- NOTE | 2020-06-15 13:41 | RAD ---
EXAM DESCRIPTION: Knee,Left Complete CLINICAL HISTORY: 89 years Female, pain COMPARISON: August 05, 2019 FINDINGS: Two views of the left knee show postoperative changes related to previous arthroplasty. Lucency adjacent to the tibial component is unchanged from the prior exam. There are a few small calcifications adjacent to the lateral tibial plateau, stable or slightly increased from the prior exam. Moderate size joint effusion. No periprosthetic or other fracture. IMPRESSION: Postoperative changes in the left knee with lucency adjacent to the tibial component and a moderate-sized joint effusion. Findings are suggestive of loosening, infection should also be considered. No additional abnormality to explain provided history. Electronically signed by: Bran Benjamin MD 06/15/2020 1:40 PM [facility]
[2020-06-15] MEDS ORDERED: ENOXAPARIN SODIUM 80 MG/0.8 ML SYG SUBCU ONE (13:44)
[2020-06-15] MEDS ORDERED: AZITHROMYCIN IV 500 MG in SODIUM CHLORIDE 0.9% 250ML 250 ML IVPB ONE (13:47)
[2020-06-15] MEDS ORDERED: CEFEPIME 1 GM in SODIUM CHLORIDE 0.9% 50ML 50 ML IVPB ONE (14:07)
--- NOTE | 2020-06-15 14:30 | ED.PDOC ---
History of Present Illness - General Chief Complaint: GI Problem Stated Complaint: n/v, left knee pain Time Seen by Provider: 06/15/20 12:09 Source: patient Exam Limitations: no limitations - History of Present Illness Initial Comments: The patient is a 89-year-old female presented emergency room secondary to 3 days of decreased oral intake as well as some nausea and vomiting. No diarrhea and she has been having bowel movements. No fever. No cough. No sore throat or runny nose. She does feel weak and generally achy. She reports increased pain in her left knee and her right hip both of which normally bother her but bother her more daily. She denies any falls. She does normally get around with a scooter but she has been unable to get around her house today secondary to generalized weakness. No new focal neurologic changes. She is alert and oriented. Timing/Duration: other - 3 days Severity: moderate Improving Factors: nothing Worsening Factors: movement Associated Symptoms: loss of appetite, malaise, nausea/vomiting, weakness Allergies/Adverse Reactions: Allergies Gabapentin Allergy (Verified 02/06/20 09:20) Guaifenesin [From Dynex] Allergy (Verified 02/06/20 09:20) Latex Allergy (Verified 02/06/20 09:20) Morphine [From MS Contin] Allergy (Verified 02/06/20 09:20) Pseudoephedrine [From Dynex] Allergy (Verified 02/06/20 09:20) Iron Adverse Reaction (Verified 02/06/20 09:20) tylenol #4 Allergy (Uncoded 06/15/20 12:21) Home Medications: Ambulatory Orders Aspirin [Aspirin 81] 81 mg PO DAILY 09/10/12 Citalopram Hydrobromide [Celexa] 20 mg PO BEDTIME 09/10/12 Furosemide [Lasix] 20 mg PO DAILY 09/10/12 Levothyroxine Sodium [Synthroid] 25 mcg PO 0630 09/10/12 Solifenacin Succinate [Vesicare] 5 mg PO BEDTIME 09/10/12 Fluticasone Propionate (Nasal) [Flonase Allergy Relief Ch] 2 spray NA DAILY 02/27/16 Potassium Chloride [K-Tab] 10 meq PO DAILY 02/27/16 Ascorbic Acid [Vitamin C] 500 mg PO DAILY 08/20/19 Diclofenac Sodium (Topical) [Diclofenac Sodium] 1 % TD TID PRN 08/20/19 Famotidine [Pepcid] 1 tablet PO BID 08/20/19 Hydroxychloroquine Sulfate [Plaquenil] 1 tablet PO BID 08/20/19 Lidocaine [Lidocaine Scott] 1 applic TOP PRN PRN 08/20/19 Linzess 72 mcg PO DAILY PRN 08/20/19 Losartan Potassium 1 tablet PO DAILY 08/20/19 Magnesium Oxide 400 mg PO DAILY 08/20/19 Melatonin 5 mg PO BEDTIME 08/20/19 Montelukast [Singulair] 10 mg PO DAILY 08/20/19 Probiotic Product [Advanced Probiotic-14] 1 cap PO DAILY 08/20/19 Acetaminophen W/ Codeine [Acetaminophen/Codeine #3 300-30 mg] 1 tab PO Q4HR PRN 12/14/19 Cephalexin Monohydrate [Keflex] 500 mg PO BID #14 cap 12/14/19 Cholecalciferol [Vitamin D3] 5,000 unit PO DAILY 12/14/19 Cyanocobalamin Inj [Vitamin B-12 Inj] 1,000 mcg IM MONTHLY 12/14/19 Omax 3 1 tablet PO DAILY 12/14/19 Pramipexole Dihydrochloride [Mirapex] 1.5 mg PO BEDTIME 12/14/19 Valerian (Valeriana Officinali [Valerian Root] 500 mg PO BEDTIME 12/14/19 Cephalexin Monohydrate [Keflex] 500 mg PO QID 7 Days #28 cap 01/09/20 Prednisone 40 mg PO DAILY 4 Days #8 tab 01/09/20 Methylprednisolone [Medrol Dose Scott] 4 mg PO DAILY 6 Days #21 tab 02/06/20 Review of Systems - Review of Systems Constitutional: States: malaise, weakness - Generalized EENTM: States: no symptoms reported Respiratory: States: no symptoms reported Cardiology: States: no symptoms reported Gastrointestinal/Abdominal: States: nausea, vomiting Genitourinary: States: frequency Musculoskeletal: States: see HPI Skin: States: no symptoms reported Neurological: States: no symptoms reported Endocrine: States: no symptoms reported All other Systems: No Change from Baseline Past Medical History (General) - Patient Medical History Hx Seizures: No Hx Stroke: Yes Hx Dementia: No Hx Asthma: No Hx of COPD: Yes Hx Cardiac Disorders: Yes Hx Congestive Heart Failure: No Hx Pacemaker: No Hx Hypertension: Yes Hx Thyroid Disease: Yes Hx Diabetes: No Hx Gastroesophageal Reflux: Yes Hx Renal Disease: No Hx Cancer: No Hx of HIV: No Hx Hepatitis C: No Hx MRSA: No - Vaccination History Hx Tetanus, Diphtheria Vaccination: No Hx Influenza Vaccination: Yes Hx Pneumococcal Vaccination: Yes - Social History Hx Tobacco Use: No Hx Chewing Tobacco Use: No Hx Alcohol Use: No Hx Substance Use: No Hx Substance Use Treatment: No Hx Depression: No Hx Physical Abuse: No Hx Emotional Abuse: No Hx Suspected Abuse: No - Activities of Daily Living Hospice Agency (if applicable):: None - Female History Patient is a Female of Child Bearing Age (10 -59 yrs old): No Patient : No Family Medical History - Family History Mother Family History: Unknown Living Status: Hx Family Hypertension: Yes Physical Exam - Physical Exam General Appearance: Alert, Frail Eye Exam: bilateral normal Ears, Nose, Throat: hearing grossly normal, normal pharynx Neck: full range of motion, supple Respiratory: lungs clear, normal breath sounds, no respiratory distress, no accessory muscle use Cardiovascular/Chest: normal peripheral pulses, no edema, other - Regular rate Peripheral Pulses: radial,right: 2+, radial,left: 2+ Gastrointestinal/Abdominal: non tender, soft Rectal Exam: deferred Back Exam: no vertebral tenderness Extremity: no pedal edema, normal capillary refill, other - Limited range of motion of the lower extremity secondary to joint pains. Neurologic: rad tech II-XII nml as tested, alert, normal mood/affect, oriented x 3 Skin Exam: normal color Comments: Vital Signs - 24 hr 06/15/20 06/15/20 06/15/20 12:05 12:15 13:06 Temperature 96.9 F L 96.9 F L Pulse Rate [ 77 77 81 pulse ox] Respiratory 18 18 18 Rate Blood Pressure 134/48 101/89 [Left Arm] O2 Sat by Pulse 95 95 Oximetry 06/15/20 14:00 Temperature 96.9 F L Pulse Rate [ 79 pulse ox] Respiratory 18 Rate Blood Pressure 112/66 [Left Arm] O2 Sat by Pulse 93 L Oximetry Progress - Progress Progress: 06/15/20 14:31 The patient is an 89-year-old female presented emergency room with what appears to be coronavirus induced gastroenteritis. He has a urinary tract infection and acute renal failure along with significant dehydration. The patient has significant weakness and inability to perform activities of daily living due to above. She has received 2 L of IV fluid. She has received a dose of dexamethasone. She has received doses of azithromycin and cefepime. She has received a dose of Lovenox. If the patient's renal function fails to improve with rehydration then additional imaging may be warranted. Admit for continued care as patient is unable to care for herself in her current state. No remdesivir or monoclonal antibody has been given to this point. arie [id number] - Results/Orders Results/Orders: Acute abdominal series shows questioning of the sutures to the humeral repair. Otherwise no obvious acute pathology. X-ray of the left knee shows the arthroplasty with questionable signs of mild loosening. Right hip shows DJD and osteoporosis. Laboratory Tests 06/15/20 06/15/20 06/15/20 12:20 12:20 12:20 WBC 7.0 RBC 4.78 Hgb 12.1 Hct 36.6 MCV 76.6 L MCH 25.3 L MCHC 33.0 RDW 17.3 H Plt Count 152 MPV 8.5 Absolute Neuts (auto) 5.80 Absolute Lymphs (auto) 0.60 L Absolute Monos (auto) 0.60 Absolute Eos (auto) 0.00 Absolute Basos (auto) 0.00 Neutrophils % 82.3 H Lymphocytes % 9.0 L Monocytes % 8.2 Eosinophils % 0.1 L Basophils % 0.4 PT INR PTT (SP) Fibrinogen D-Dimer, Quantitative Sodium 134 L Potassium 4.4 Chloride 95 L Carbon Dioxide 22 Anion Gap 21.4 H BUN 50 H Creatinine 3.41 H BUN/Creatinine Ratio 14.7 Random Glucose 87 Serum Osmolality 280.9 Lactic Acid Calcium 8.5 Magnesium 2.1 Ferritin 251.8 Total Bilirubin 0.6 AST 37 ALT 27 Alkaline Phosphatase 69 LD Total Creatine Kinase 111 CK-MB (CK-2) 4.1 CK-MB (CK-2) % Not Reportable Troponin I < 0.02 C-Reactive Protein B-Natriuretic Peptide 17.6 Serum Total Protein 8.1 Albumin 4.3 Globulin 3.8 H Albumin/Globulin Ratio 1.1 Amylase 38 Lipase 22 TSH 2.04 Urine Color Urine Appearance Urine pH Ur Specific [place] Urine Protein Urine Glucose (UA) Urine Ketones Urine Blood Urine Nitrite Urine Bilirubin Urine Urobilinogen Ur Leukocyte Esterase Urine RBC Urine WBC Ur Epithelial Cells Amorphous Sediment Urine Bacteria Urine Mucus 06/15/20 06/15/20 06/15/20 12:20 12:20 12:37 WBC RBC Hgb Hct MCV MCH MCHC RDW Plt Count MPV Absolute Neuts (auto) Absolute Lymphs (auto) Absolute Monos (auto) Absolute Eos (auto) Absolute Basos (auto) Neutrophils % Lymphocytes % Monocytes % Eosinophils % Basophils % PT 9.9 INR 1.00 PTT (SP) 24.7 Fibrinogen 361 D-Dimer, Quantitative 2630.0 H* Sodium Potassium Chloride Carbon Dioxide Anion Gap BUN Creatinine BUN/Creatinine Ratio Random Glucose Serum Osmolality Lactic Acid 1.3 Calcium Magnesium Ferritin Total Bilirubin AST ALT Alkaline Phosphatase LD Total 217 H Creatine Kinase CK-MB (CK-2) CK-MB (CK-2) % Troponin I C-Reactive Protein 6.8 H B-Natriuretic Peptide Serum Total Protein Albumin Globulin Albumin/Globulin Ratio Amylase Lipase TSH Urine Color Urine Appearance Urine pH Ur Specific [place] Urine Protein Urine Glucose (UA) Urine Ketones Urine Blood Urine Nitrite Urine Bilirubin Urine Urobilinogen Ur Leukocyte Esterase Urine RBC Urine WBC Ur Epithelial Cells Amorphous Sediment Urine Bacteria Urine Mucus 06/15/20 13:45 WBC RBC Hgb Hct MCV MCH MCHC RDW Plt Count MPV Absolute Neuts (auto) Absolute Lymphs (auto) Absolute Monos (auto) Absolute Eos (auto) Absolute Basos (auto) Neutrophils % Lymphocytes % Monocytes % Eosinophils % Basophils % PT INR PTT (SP) Fibrinogen D-Dimer, Quantitative Sodium Potassium Chloride Carbon Dioxide Anion Gap BUN Creatinine BUN/Creatinine Ratio Random Glucose Serum Osmolality Lactic Acid Calcium Magnesium Ferritin Total Bilirubin AST ALT Alkaline Phosphatase LD Total Creatine Kinase CK-MB (CK-2) CK-MB (CK-2) % Troponin I C-Reactive Protein B-Natriuretic Peptide Serum Total Protein Albumin Globulin Albumin/Globulin Ratio Amylase Lipase TSH Urine Color Brown H Urine Appearance Cloudy Urine pH 5.0 Ur Specific [place] >= 1.030 Urine Protein 30 Urine Glucose (UA) Negative Urine Ketones Trace Urine Blood Negative Urine Nitrite Negative Urine Bilirubin Small H Urine Urobilinogen 0.2 Ur Leukocyte Esterase Trace H Urine RBC 10-20 H Urine WBC 10-20 H Ur Epithelial Cells 5-10 Amorphous Sediment 3+ Urine Bacteria 4+ H Urine Mucus Large Departure - Departure Clinical Impression: Gastroenteritis due to COVID-19 virus, Inability to perform activities of daily living Acute renal failure Qualifiers: Acute renal failure type: unspecified Qualified Code(s): N17.9 - Acute kidney failure, unspecified UTI (urinary tract infection) Qualifiers: Urinary tract infection type: acute cystitis Hematuria presence: without hematuria Qualified Code(s): N30.00 - Acute cystitis without hematuria Disposition: Admit Patient Departure Forms: ED Discharge - Pt. Copy, Patient Portal Self Enrollment Referrals: ROYAL SAMANIEGO IV, CASEY SAW OPERATOR [Primary Care Provider] - 1-2 Weeks Home Medications: Ambulatory Orders Aspirin [Aspirin 81] 81 mg PO DAILY 09/10/12 Citalopram Hydrobromide [Celexa] 20 mg PO BEDTIME 09/10/12 Furosemide [Lasix] 20 mg PO DAILY 09/10/12 Levothyroxine Sodium [Synthroid] [place] [address]/10/12 Solifenacin Succinate [Vesicare] 5 mg PO BEDTIME 09/10/12 Fluticasone Propionate (Nasal) [Flonase Allergy Relief Ch] 2 spray NA DAILY 02/27/16 Potassium Chloride [K-Tab] 10 meq PO DAILY 02/27/16 Ascorbic Acid [Vitamin C] 500 mg PO DAILY 08/20/19 Diclofenac Sodium (Topical) [Diclofenac Sodium] 1 % TD TID PRN 08/20/19 Famotidine [Pepcid] 1 tablet PO BID 08/20/19 Hydroxychloroquine Sulfate [Plaquenil] 1 tablet PO BID 08/20/19 Lidocaine [Lidocaine Scott] 1 applic TOP PRN PRN 08/20/19 Linzess 72 mcg PO DAILY PRN 08/20/19 Losartan Potassium 1 tablet PO DAILY 08/20/19 Magnesium Oxide 400 mg PO DAILY 08/20/19 Melatonin 5 mg PO BEDTIME 08/20/19 Montelukast [Singulair] 10 mg PO DAILY 08/20/19 Probiotic Product [Advanced Probiotic-14] 1 cap PO DAILY 08/20/19 Acetaminophen W/ Codeine [Acetaminophen/Codeine #3 300-30 mg] 1 tab PO Q4HR PRN 12/14/19 Cephalexin Monohydrate [Keflex] 500 mg PO BID #14 cap 12/14/19 Cholecalciferol [Vitamin D3] 5,000 unit PO DAILY 12/14/19 Cyanocobalamin Inj [Vitamin B-12 Inj] 1,000 mcg IM MONTHLY 12/14/19 Omax 3 1 tablet PO DAILY 12/14/19 Pramipexole Dihydrochloride [Mirapex] 1.5 mg PO BEDTIME 12/14/19 Valerian (Valeriana Officinali [Valerian Root] 500 mg PO BEDTIME 12/14/19 Cephalexin Monohydrate [Keflex] 500 mg PO QID 7 Days #28 cap 01/09/20 Prednisone 40 mg PO DAILY 4 Days #8 tab 01/09/20 Methylprednisolone [Medrol Dose Scott] 4 mg PO DAILY 6 Days #21 tab 02/06/20 Decision To Admit - Decistion To Admit Decision to Admit Reason: Medical Nature Decision to Admit Date: 06/15/20 Decision to Admit Time: 14:33
--- NOTE | 2020-06-15 16:37 | HP ---
SUPERVISING PHYSICIAN: Emilia Ch MD CHIEF COMPLAINT: Nausea, vomiting and left knee pain. HISTORY OF PRESENT ILLNESS: Ms. Allen is an 89-year-old female patient who presented to the Emergency Room today complaining of three days of decreased oral intake and associated nausea and vomiting. She denied any diarrhea and significant constipation. She has not reported any fevers, but she does feel weak and achy. She endorses that she has had some increasing pain in her left knee and her right hip which have been chronic, but seem to be worsening over the last several days. She has not sustained any falls and normally does get around with a scooter, but in the last several days is unable even to get around in the scooter in the house secondary to generalized weakness. Workup showed that she was positive for COVID as well as had a significant urinary tract infection. Vital signs showed saturation 95% on room air at rest and afebrile. Her additional laboratory studies showed she had a white count of 7,000 with a slight left shift. Coagulation studies showed her D-dimer was elevated at 2630. Chemistries showed a significant elevation of her creatinine at 3.41 with review of her records showing she has normal creatinine around 0.8. Her potassium was normal at 4.4 as well as magnesium, calcium and lactic acid were all normal. She was not in any distress. She was started on antibiotics initially with cefepime, azithromycin and was given 1 mg per kg dose of Lovenox and 2 liters of normal saline. She is now going to be admitted for treatment of acute renal failure with associated comfort pneumonitis. She was admitted in stable condition. PAST MEDICAL HISTORY: 1. Chronic obstructive pulmonary disease 2. Acute myocardial infarction. 3. Thyroid disease. 4. Previous cerebrovascular accident. 5. Chronic reflux disease. 6. Hypertension. 7. Osteoarthritis. PAST SURGICAL HISTORY: 1. Appendectomy. 2. Cholecystectomy. 3. Back surgery. 4. Knee replacements. 5. Rotator cuff surgery. 6. Hip replacement. CURRENT MEDICATIONS: 1. Valerian 500 mg at bedtime. 2. VESIcare 5 mg at bedtime. 3. Probiotic 1 capsule daily. 4. Melatonin 5 mg daily. 5. Mirapex 1.5 mg daily. 6. Potassium chloride 10 mEq daily. 7. Singulair 10 mg daily. 8. Mag oxide 400 mg daily. 9. Losartan/potassium 1 tablet daily. 10. Linzess 72 mcg daily. 11. Levothyroxine 25 mcg daily. 12. Plaquenil 1 tablet b.i.d. 13. Lasix 20 mg daily. 14. Flonase nasal spray 2 sprays per naris daily. 15. Pepcid 1 tablet b.i.d. 16. Diclofenac topical t.i.d. as needed. 17. Vitamin B12 injection monthly. 18. Celexa 20 mg daily. 20. Vitamin D3 5000 units daily. 21. Aspirin 81 mg daily. 22. Vitamin C 500 mg daily. 23. Tylenol #3 1 tablet q.4h. as needed. ALLERGIES: GUAIFENESIN, GABAPENTIN, LATEX, MORPHINE, PSEUDOEPHEDRINE, IRON, TYLENOL #4. FAMILY HISTORY: Noncontributory to current admission. SOCIAL HISTORY: The patient lives at home in [place]. She is and lives by herself. She has no history of alcohol, tobacco or illicit drug use. REVIEW OF SYSTEMS: CONSTITUTIONAL: Positive for generalized weakness, malaise. HEENT: Denies headaches, sore throats, earaches, nasal congestion, vision changes. RESPIRATORY: Denies significant coughing, wheezing or shortness of breath. CARDIOVASCULAR: Denies chest pain, palpitations or syncopal episodes. GASTROINTESTINAL: As noted in history of present illness, nausea and vomiting, but denies diarrhea, constipation or abdominal pain. GENITOURINARY: She does have some polyuria, but no reported hematuria or dysuria. MUSCULOSKELETAL: As noted in history of present illness. SKIN: Denies lesions, rashes, moles or unexplained changes. NEUROLOGIC: Denies ataxia, seizures, paresthesias. Positive for generalized weakness as noted in history of present illness. HEMATOLOGIC: Denies unexplained bleeding, bruising or transfusion reactions. PHYSICAL EXAMINATION: VITAL SIGNS: Temperature 97.5, pulse 68, blood pressure 162/78, respirations 18, saturation 95% on room air at rest. GENERAL: The patient looks alert. She does appear to be frail, but not in any acute distress at time of exam. HEENT: Tympanic membranes clear bilaterally. Oropharynx is pink with notably dry mucous membranes. NECK: Supple, nontender with full range of motion. No jugular venous distention noted. RESPIRATORY: Lung sounds are clear throughout with no obvious rhonchi, wheezes or rales. CARDIOVASCULAR: Regular rate and rhythm without any appreciable murmurs, gallops, or rubs. ABDOMEN: Soft, nontender. Positive bowel sounds. RECTAL: Deferred. BACK: No vertebral or CVA tenderness. EXTREMITIES: There is no cyanosis, clubbing or edema. She does have some limited range of motion of bilateral lower extremities secondary to her reported joint pain. NEUROLOGIC: Cranial nerves II-XII are grossly intact. Facial features are symmetrical. Extraocular movements are within normal limits. There is no nystagmus noted. The patient is alert and oriented times three. SKIN: Warm, pink and dry. LABORATORY: White count 7,000, hemoglobin 12.1, hematocrit 36.6, platelet count 152,000. Differential with a slight left shift. Coagulation studies showed normal PT, PTT, but D-dimer was elevated at 2630. Chemistries showed sodium 134, potassium normal at 4.4, creatinine 3.4, BUN 50. Baseline creatinine looks to be around 0.8. Calcium normal at 8.5, magnesium 2.1, ferritin normal, lactic acid normal. Liver functions all within normal limits. Troponin less than 0.02. BNP17.6. C-reactive protein elevated at 6.8. TSH normal at 2.04. Urinalysis showed brown, cloudy urine with small amount of bilirubin and trace leukocyte esterase. Microscopic revealed 10 to 20 RBCs and WBCs with 5 to 10 epithelials, 4+ bacteria, large amount of mucus, 3+ amorphus material. MICROBIOLOGY: Blood cultures pending. Urine culture pending. Nasal swab positive for COVID. RADIOLOGY: Abdominal x-ray showed cardiomegaly with bilateral atelectasis. No pleural effusions or pneumothorax. Knee x-ray of the left knee showed postoperative changes of the knee with lucency to the tibial component and moderate sized joint effusion. Findings are suggestive of loosening, infection should also be considered. No additional abnormalities to explain provided history. Please see that report for details. X-ray of the hip shows no periprosthetic fracture identified with post surgical changes noted in the right hip arthroplasty. ASSESSMENT: 1. COVID infection with questionable gastroenteritis with no obvious signs of pneumonitis at this point. 2. Acute renal failure, likely due to acute dehydration. 3. Urinary tract infection with cultures pending. 4. Significant deconditioning with inability to perform activities of daily living. 5. Chronic obstructive pulmonary disease with no current signs of exacerbation. 6. History of hypothyroidism on supplementation. 7. History of previous cerebrovascular accidents with no reported residual effects. 8. Gastroesophageal reflux disease. 9. Hypertension. 10. Osteoarthritis. PLAN: Ms. Allen is going to be admitted for treatment of COVID infection and acute renal failure. Given her advanced age and history of chronic obstructive pulmonary disease, we will start her on full treatment including Remdesivir, Rocephin, azithromycin, Decadron, Align, Protonix. I am not sure that her D-dimer is truly elevated from the COVID infection versus the underlying cystitis, but she was given initial dose of Lovenox in the ER, 1 mg per kg. We will repeat labs in the morning and adjust her DVT prophylaxis accordingly to the next creatinine as she does have significant decreased creatinine clearance. We will follow labs per protocol. She got 2 liters of fluid in the ER. We will continue with IV fluids, but cautiously. Review of her echocardiogram that was done in August of 2019 showed she had no diastolic or systolic function with an ejection fraction of 65%. Her BNP was normal. Given her diagnosis COVID, we will certainly be cautious with fluids, but at this point, her renal function warrants continued fluid management. I would anticipate her length of stay to be least two to three days. Until the patient can transition to outpatient management, we will continue to monitor and treat as needed. In regards to antibiotics, we will continue with antibiotic coverage with azithromycin and, again, she got a dose of cefepime but given her renal function, we will start her on some Rocephin and await final culture results to further treat the underlying urinary tract infection appropriate to the sensitivity report. Again, until the patient can transition to outpatient management, we will continue to monitor and treat as needed. #[id number] MTDD
[2020-06-15] MEDS ORDERED: SODIUM CHLORIDE 0.9% (FLUSH) 10 ML SYG IV PRN (16:54)
[2020-06-15] MEDS ORDERED: REMDESIVIR 200 MG in SODIUM CHLORIDE 0.9% 250ML 250 ML IVPB ONE (16:58)
[2020-06-15] MEDS ORDERED: DEXAMETHASONE INJ 10 MG/ML VIAL IV ONE (16:58)
[2020-06-15] MEDS ORDERED: IV SET AND CAP CHANGE INJ INJ SCH (17:00)
[2020-06-15] MEDS ORDERED: REMDESIVIR IV 100 MG VIAL ONE (17:37)
[2020-06-15] MEDS ORDERED: SODIUM CHLORIDE 0.9% 250ML 250 ML ONE (17:37)
[2020-06-15] MEDS: ACETAMINOPHEN 325 MG TAB PO PRN (19:36)
[2020-06-16] MEDS: ACETAMINOPHEN 325 MG TAB PO PRN ×2 (02:30→09:15)
[2020-06-16] MEDS: PANTOPRAZOLE SODIUM IV 40 MG VIAL IV SCH (05:55)
--- NOTE | 2020-06-16 07:48 | RAD ---
EXAM: XR Chest, 1 View CLINICAL HISTORY: The patient is 89 years old and is Female; covid TECHNIQUE: Single view of the chest. COMPARISON: July 15, 2019. FINDINGS: Lungs: Right basilar subsegmental atelectasis. No definite infiltrate. Pleural space: Unremarkable. No pneumothorax. Heart: The cardiac silhouette is enlarged versus artifact of AP technique. Mediastinum: Unremarkable. Bones/joints: No acute fracture visualized. Upper abdomen: Elevated right hemidiaphragm. No free air. No free air in the visualized upper abdomen. IMPRESSION: Right basilar subsegmental atelectasis. No definite infiltrate. Elevated right hemidiaphragm. Electronically signed by: Sonam Juan MD 06/16/2020 7:47 AM HEARING AID REPAIR TECHNICIAN
[2020-06-16] MEDS ORDERED: REMDESIVIR IV 100 MG VIAL ONE (07:59)
[2020-06-16] MEDS ORDERED: SODIUM CHLORIDE 0.9% 250ML 250 ML ONE (07:59)
[2020-06-16] MEDS ORDERED: AZITHROMYCIN IV 500 MG VIAL IVPB ONE (07:59)
[2020-06-16] MEDS ORDERED: cefTRIAXone SODIUM 1 GM VIAL IM SCH (08:00)
[2020-06-16] MEDS ORDERED: SODIUM CHL 0.9% 50ML MIN-BAG+ 50 ML IVPB ONE (08:00)
[2020-06-16] MEDS: BIFIDOBACTERIUM INFANTIS 4 MG CAP PO SCH (08:53)
[2020-06-16] MEDS: DEXAMETHASONE INJ 10 MG/ML VIAL IV SCH (08:53)
[2020-06-16] MEDS: AZITHROMYCIN IV 500 MG in SODIUM CHLORIDE 0.9% 250ML 250 ML IVPB SCH (08:54)
[2020-06-16] MEDS: REMDESIVIR 100 MG in SODIUM CHLORIDE 0.9% 250ML 250 ML IVPB SCH (11:30)
--- NOTE | 2020-06-16 16:42 | PN ---
SUPERVISING PHYSICIAN: Emilia Ch MD DATE: 06/16/20 SUBJECTIVE: The patient notes she is feeling a little bit better. Her pain in her hip and her knee is not there at present. She is not really having any shortness of breath. Renal function is showing some slight improvement with fluids. She is tolerating IV infusion. OBJECTIVE: VITAL SIGNS: Temperature 97.9, pulse 82, blood pressure 101/64, respirations 18, saturation 95% on 1.5 liters nasal cannula. GENERAL: The patient is resting comfortably in no acute distress. CHEST: Just a little diminished in the bases, no obvious rales, rhonchi or wheezing. HEART: Regular rate and rhythm. ABDOMEN: Obese, but soft and nontender. Positive bowel sounds. EXTREMITIES: No edema. NEUROLOGIC: Alert and oriented times three. LABORATORY: White count 4,700, hemoglobin 10.5, hematocrit 32.4, platelet count 109,000. Differential with a significant left shift. D-dimer down to 1840. Chemistries show normal electrolytes with BUN 51. Creatinine is down to 2.55 compared to 3.4 on admission. Calcium 7.8. Liver functions all within normal limits. C-reactive protein is down a little bit to 6.6. MICROBIOLOGY: Urine culture shows no growth at 24 hours. Blood cultures remain negative at 24 hours. RADIOLOGY: Repeat chest x-ray this morning per radiologic interpretation shows right basilar subsegmental atelectasis, but no definite infiltrate, elevated right diaphragm. ASSESSMENT: 1. COVID pneumonitis. 2. Acute renal failure, likely secondary to dehydration, improving with fluids. 3. Urinary tract infection with cultures pending. 4. Significant deconditioning. 5. Chronic obstructive pulmonary disease with no current signs of exacerbation. 6. History of hypothyroidism on supplementation. 7. History of previous cerebrovascular accidents. 8. Gastroesophageal reflux disease. 9. Hypertension. 10. Osteoarthritis. PLAN: I will continue treatment for COVID and urinary tract infection with Rocephin, azithromycin, Decadron, Align, Remdesivir and Protonix. I did talk to her daughter this morning at length. The plan at this point is that she will not be going to the residential, she will be discharging to home as she does have an appointment to see Dr. Macdonald to be cleared for surgery with anticipation of re-do of her right knee arthroplasty by her surgeon in [place]. The daughter has reassured me that she can take care of her at home and once she is able to go home, she wants her to be discharged home. I anticipate the patient will probably be able to go home in the next one to two days, probably discharging on Monday just given her advanced age and her renal functio and we will go slow with administration of fluids and the fact that she does have COVID. We will follow her renal function and other labs per protocol. Until the patient can transition to outpatient management, we will continue to monitor and treat as needed. #[id number] [facility]
[2020-06-16] MEDS: ACETAMINOPHEN W/ COD #4 TAB 1EA TAB PO PRN (18:26)
[2020-06-16] MEDS: SODIUM CHLORIDE 0.9% 1000ML 1,000 ML IVS PRN (18:26)
[2020-06-16] MEDS ORDERED: ENOXAPARIN SODIUM 30 MG/0.3 ML SYG SUBCU ONE (19:46)
[2020-06-16] MEDS: ENOXAPARIN SODIUM 30 MG/0.3 ML SYG SUBCU SCH (20:13)
[2020-06-16] MEDS ORDERED: NON-FORMULARY MEDICATION 1 EA MIS (Pramipexole Dihydrochloride [Pramipexole Dihydrochlori] PO SCH (21:00)
[2020-06-16] MEDS ORDERED: SOLIFENACIN SUCCINATE 5 MG PO SCH (21:00)
[2020-06-16] MEDS ORDERED: NON-FORMULARY MEDICATION 1 EA MIS (Melatonin [Melatonin] 5 MG) PO SCH (21:00)
[2020-06-16] MEDS ORDERED: MELATONIN 3 MG TAB ONE (22:50)
[2020-06-16] MEDS ORDERED: PRAMIPEXOLE 0.25 MG TAB ONE (22:50)
[2020-06-16] MEDS: CITALOPRAM HBR 20 MG TAB PO SCH (22:56)
[2020-06-17] MEDS: ACETAMINOPHEN W/ COD #4 TAB 1EA TAB PO PRN ×4 (01:40→23:17)
[2020-06-17] MEDS ORDERED: LEVOTHYROXINE SODIUM 0.025 MG TAB ONE (05:22)
[2020-06-17] MEDS: ONDANSETRON INJ 4 MG/2 ML VIAL IV PRN ×2 (05:27→11:05)
[2020-06-17] MEDS: PANTOPRAZOLE SODIUM IV 40 MG VIAL IV SCH (05:29)
[2020-06-17] MEDS: SODIUM CHLORIDE 0.9% 1000ML 1,000 ML IVS PRN (05:31)
[2020-06-17] MEDS: LEVOTHYROXINE SODIUM 0.025 MG TAB PO SCH (06:00)
[2020-06-17] MEDS ORDERED: LEVOTHYROXINE SODIUM 25 MCG PO SCH (06:30)
[2020-06-17] MEDS ORDERED: MONTELUKAST 10 MG TAB ONE (07:32)
[2020-06-17] MEDS ORDERED: ASPIRIN (CHEWABLE) 81 MG TAB ONE (07:32)
[2020-06-17] MEDS ORDERED: ASCORBIC ACID 500 MG TAB ONE (07:32)
[2020-06-17] MEDS: cefTRIAXone SODIUM 1 GM in SODIUM CHL 0.9% 50ML MIN-BAG+ 50 ML IVPB SCH (08:19)
[2020-06-17] MEDS: BIFIDOBACTERIUM INFANTIS 4 MG CAP PO SCH (08:21)
[2020-06-17] MEDS: MONTELUKAST 10 MG TAB PO SCH (08:21)
[2020-06-17] MEDS: DEXAMETHASONE INJ 10 MG/ML VIAL IV SCH (08:21)
[2020-06-17] MEDS: ASPIRIN (ENTERIC COATED) 81 MG TAB PO SCH (08:22)
[2020-06-17] MEDS: ASCORBIC ACID 500 MG TAB PO SCH (08:22)
[2020-06-17] MEDS: AZITHROMYCIN IV 500 MG in SODIUM CHLORIDE 0.9% 250ML 250 ML IVPB SCH (08:32)
[2020-06-17] MEDS ORDERED: SODIUM CHLORIDE 0.9% (FLUSH) 10 ML SYG ONE (10:41)
[2020-06-17] MEDS: REMDESIVIR 100 MG in SODIUM CHLORIDE 0.9% 250ML 250 ML IVPB SCH (11:05)
[2020-06-17] MEDS: LOSARTAN POTASSIUM PO SCH (15:51)
[2020-06-17] MEDS ORDERED: MELATONIN 3 MG TAB ONE (20:37)
[2020-06-17] MEDS: ENOXAPARIN SODIUM 30 MG/0.3 ML SYG SUBCU SCH (20:41)
[2020-06-17] MEDS: CITALOPRAM HBR 20 MG TAB PO SCH (20:41)
[2020-06-17] MEDS ORDERED: TOLTERODINE TARTRATE ER 4 MG CAP PO SCH (21:00)
[2020-06-17] MEDS ORDERED: PRAMIPEXOLE 0.25 MG TAB PO SCH (21:00)
[2020-06-17] MEDS ORDERED: MELATONIN 3 MG TAB PO SCH (21:00)
[2020-06-18] MEDS: LEVOTHYROXINE SODIUM 0.025 MG TAB PO SCH (06:05)
[2020-06-18] MEDS: PANTOPRAZOLE SODIUM IV 40 MG VIAL IV SCH (06:05)
[2020-06-18] MEDS: cefTRIAXone SODIUM 1 GM in SODIUM CHL 0.9% 50ML MIN-BAG+ 50 ML IVPB SCH (07:37)
--- NOTE | 2020-06-18 07:38 | RAD ---
EXAM DESCRIPTION: Chest,1 View CLINICAL HISTORY: covid COMPARISON: June 16, 2020 IMPRESSION: Single AP portable upright view of the chest shows enlargement of the cardiac silhouette without pulmonary vascular congestion. Calcifications of the thoracic aortic arch are again seen. Lungs are normally aerated. Elevation of the right hemidiaphragm is seen. Apical lordotic projection is seen. Continued increased interstitial markings in the right perihilar region could represent prominent pulmonary vascularity and imaging technique versus mild interstitial infiltrate. Calcified lymph nodes in the right hilar region are seen suggesting old granulomatous disease. No new infiltrates, pleural effusion, or pneumothorax are seen. Postsurgical changes to the right shoulder are identified. Electronically signed by: Agustín Fields MD 06/18/2020 7:37 AM [facility] . [facility]
--- NOTE | 2020-06-18 07:51 | PN ---
SUPERVISING PHYSICIAN: Emilia Ch MD DATE: 06/17/20 SUBJECTIVE: The patient is sitting up on the side of her bed. She has no complaints. She said she is feeling much better. She denies chest pain, nausea or vomiting. OBJECTIVE: VITAL SIGNS: Temperature 97.8, heart rate 54, blood pressure 113/64, respiratory rate 18, O2 saturation 95% on room air. RESPIRATORY: Essentially clear to auscultation bilaterally. CARDIAC: Regular rate and rhythm. GASTROINTESTINAL: Abdomen is soft, nondistended, nontender. Bowel sounds are positive. NEUROLOGIC: Awake, alert and oriented times three. LABORATORY: WBCs 6.4, hemoglobin 10.1, hematocrit 30.7. D-dimer 1,470. Electrolytes are basically within normal limits with the exception of her calcium is low at 7.9. BUN 47, creatinine 1.5. C-reactive protein 3.7. MICROBIOLOGY: Preliminary blood cultures show no growth after 48 hours. Urine culture shows no growth after 48 hours.All other labs and films have been reviewed via the EMR. ASSESSMENT: 1. COVID pneumonitis. 2. Acute renal failure, likely secondary to dehydration, improving with fluids. 3. Urinary tract infection with cultures pending. 4. Significant deconditioning. 5. Chronic obstructive pulmonary disease with no current signs of exacerbation. 6. History of hypothyroidism on supplementation. 7. History of previous cerebrovascular accidents. 8. Gastroesophageal reflux disease. 9. Hypertension. 10. Osteoarthritis. PLAN: We will continue present supportive care. We will continue on COVID guidelines including lab work and medications. She will have aggressive pulmonary hygiene. If she continues to improve, she most likely can be discharged tomorrow or the next day as the patient is on room air and clinically, she is improved. Routine lab and chest x-ray will be ordered for tomorrow. We will monitor and treat as needed. #[id number] [facility]
[2020-06-18] MEDS: ACETAMINOPHEN W/ COD #4 TAB 1EA TAB PO PRN (08:26)
[2020-06-18] MEDS: BIFIDOBACTERIUM INFANTIS 4 MG CAP PO SCH (08:26)
[2020-06-18] MEDS: ASCORBIC ACID 500 MG TAB PO SCH (08:26)
[2020-06-18] MEDS: ASPIRIN (ENTERIC COATED) 81 MG TAB PO SCH (08:26)
[2020-06-18] MEDS: MONTELUKAST 10 MG TAB PO SCH (08:27)
[2020-06-18] MEDS: DEXAMETHASONE INJ 10 MG/ML VIAL IV SCH (08:27)
[2020-06-18] MEDS: AZITHROMYCIN IV 500 MG in SODIUM CHLORIDE 0.9% 250ML 250 ML IVPB SCH (08:27)
[2020-06-18] MEDS: LOSARTAN POTASSIUM PO SCH (08:38)
[2020-06-18] MEDS ORDERED: FLUTICASONE PROP 0.05% NASAL 16 GM BTTL BNAS SCH (09:00)
[2020-06-18] MEDS ORDERED: FAMOTIDINE 20 MG TAB PO SCH (09:00)
[2020-06-18] MEDS ORDERED: LOSARTAN POTASSIUM 25 MG TAB PO SCH (09:00)
[2020-06-18] MEDS: REMDESIVIR 100 MG in SODIUM CHLORIDE 0.9% 250ML 250 ML IVPB SCH (11:30)
[2020-06-18 14:57] VITALS: BP 162/62; TEMP 98; O2SAT 97
[2020-06-19] MEDS ORDERED: PANTOPRAZOLE SODIUM TAB 40 MG PO SCH (06:30)
--- NOTE | 2020-06-24 16:06 | DS ---
SUPERVISING PHYSICIAN: Jg Ch M.D. DISCHARGE DIAGNOSIS: 1. COVID pneumonitis. 2. Acute renal failure, likely secondary to dehydration, improving with fluids. 3. Urinary tract infection with cultures pending. 4. Significant deconditioning. 5. Chronic obstructive pulmonary disease with no current signs of exacerbation. 6. History of hypothyroidism on supplementation. 7. History of previous cerebrovascular accidents. 8. Gastroesophageal reflux disease. 9. Hypertension. 10. Osteoarthritis. HISTORY OF PRESENT ILLNESS: Ms. Allen is an 89-year-old female patient who presented to the Emergency Room today complaining of three days of decreased oral intake and associated nausea and vomiting. She denied any diarrhea and significant constipation. She has not reported any fevers, but she does feel weak and achy. She endorses that she has had some increasing pain in her left knee and her right hip which have been chronic, but seem to be worsening over the last several days. She has not sustained any falls and normally does get around with a scooter, but in the last several days is unable even to get around in the scooter in the house secondary to generalized weakness. Workup showed that she was positive for COVID as well as had a significant urinary tract infection. Vital signs showed saturation 95% on room air at rest and afebrile. Her additional laboratory studies showed she had a white count of 7,000 with a slight left shift. Coagulation studies showed her D-dimer was elevated at 2630. Chemistries showed a significant elevation of her creatinine at 3.41 with review of her records showing she has normal creatinine around 0.8. Her potassium was normal at 4.4 as well as magnesium, calcium and lactic acid were all normal. She was not in any distress. She was started on antibiotics initially with cefepime, azithromycin and was given 1 mg per kg dose of Lovenox and 2 liters of normal saline. She is now going to be admitted for treatment of acute renal failure with associated comfort pneumonitis. She was admitted in stable condition. HOSPITAL COURSE: The patient was admitted to the hospital for COVID infection with no obvious signs of pneumonitis. She was treated for COVID with Remdesivir, Rocephin, azithromycin, Decadron, Align and Protonix. She was also given Lovenox. She did get 2 units of fluid in the Emergency Room but fluids were continued cautiously. Over the next several days she slowly improved. Additionally there were plans to discharge the patient to the retirement. The patient wanted to go home with home health. Her vital signs have stabilized. She has gotten to her baseline on her labs. She will be discharged home today in stable condition. LABORATORY: WBCs are stable at 4.6 with hemoglobin 9.6, hematocrit 29.3. D- dimer was 2,630 and is now 1,470. Initial BUN was 50 and is now 41. Creatinine was 3.41 and is now 1.13. Baseline creatinine is about 1. Preliminary blood cultures show no growth after 4 days. Urine culture shows no growth after 48 hours. RADIOLOGY: Final chest x-ray shows no new infiltrates, pleural effusion or pneumothorax seen. The remainder of the report is per the EMR. DISCHARGE PLAN: The patient will be discharged home in stable condition with home health. She is to resume her previous diet and increase her activity as tolerated. She should make a followup appointment with John Ross, her primary care physician, within 1 to 2 weeks. In addition to her routine medications, she is also to continue on her Align, Cefdinir, Dexamethasone, Albuterol and azithromycin. She is to return to the hospital or followup with John Ross for any problems or complications. DISCHARGE MEDICATIONS: 1. Furosemide. 2. Aspirin. 3. Levothyroxine. 4. Citalopram. 5. VESIcare. 6. Flonase. 7. Potassium chloride. 8. Losartan. 9. Famotidine. 10. Lidocaine. 11. Vitamin C. 12. Melatonin. 13. Singulair. 14. Magnesium oxide. 15. Diclofenac. 16. Valerian root. 17. Vitamin D3. 18. Vitamin B12. 19. Omax. 20. Pramipexole. 21. vitamins. 22. Acetaminophen with codeine. 23. Align. 24. Cefdinir. 25. Dexamethasone. 26. Albuterol inhaler. 27. Azithromycin. #[id number] [facility]
== END 2020-06-18 16:10 | disposition home health service (06) | DRG 177 ==
LOC: ER 12:02 → OBSVTOIN 16:36 → MS 16:36
PROVIDERS: ADMIT Nurse Practitioner Family; ATTEND Nurse Practitioner Acute Care
DX: U07.1 COVID-19 (principal); J12.89 Other viral pneumonia; N17.9 Acute kidney failure, unspecified; N30.00 Acute cystitis without hematuria; A08.39 Other viral enteritis; E86.0 Dehydration; J44.9 Chronic obstructive pulmonary disease, unspecified; E03.9 Hypothyroidism, unspecified; K21.9 Gastro-esophageal reflux disease without esophagitis; I10 Essential (primary) hypertension; M19.90 Unspecified osteoarthritis, unspecified site; I25.2 Old myocardial infarction; Z96.651 Presence of right artificial knee joint; Z60.2 Problems related to living alone; Z96.641 Presence of right artificial hip joint; Z86.73 Personal history of transient ischemic attack (TIA), and cerebral infarction without residual deficits; Z90.49 Acquired absence of other specified parts of digestive tract; Z79.82 Long term (current) use of aspirin; Z79.899 Other long term (current) drug therapy; Z79.891 Long term (current) use of opiate analgesic; Z88.5 Allergy status to narcotic agent; Z88.8 Allergy status to other drugs, medicaments and biological substances; Z88.6 Allergy status to analgesic agent; Z91.040 Latex allergy status; Z79.1 Long term (current) use of non-steroidal anti-inflammatories (NSAID); Z79.52 Long term (current) use of systemic steroids

== ENCOUNTER → 2020-07-26 | Outpatient (CLI) | payer MEDICARE, OTHER | LOC: GT 12:05 | PROVIDERS: ATTEND Internal Medicine | DX: N39.0 Urinary tract infection, site not specified (principal) ==

== ENCOUNTER → 2020-08-10 | Outpatient (CLI) | payer MEDICARE, OTHER ==
--- NOTE | 2020-08-11 14:19 | US ---
EXAM DESCRIPTION: Venous,Lower Extremity LT: ULTRASOUND. CLINICAL HISTORY: LEG SWELLING/PN LEFT COMPARISON: None Available. TECHNIQUE: Wilson-scale and doppler sonographic evaluation of the deep venous system of the left lower extremity. FINDINGS: Doppler evaluation shows normal color flow and normal phasicity and augmentation of the left common femoral vein, left femoral vein, popliteal vein, left greater saphenous vein, junction with the CFV. Also normal color flow and normal phasicity and augmentation of the left peroneal, and posterior tibial vein. The left lower extremity deep veins were completely compressible; normal occlusion with transducer pressure. Wilson-scale survey showed no echogenic thrombus within these veins. IMPRESSION: 1. Duplex ultrasound evaluation of the left lower extremity deep venous system showing no evidence of thrombosis. Electronically signed by: Gaurav Silva MD 08/11/2020 2:18 PM [employer]
--- NOTE | 2020-08-11 14:33 | US ---
EXAM DESCRIPTION: Extremity,Lower LT Arteries: Ultrasound. CLINICAL HISTORY: LEG. Nor. LEFT COMPARISON: Duplex evaluation of the left lower extremity deep venous system on the same visit. TECHNIQUE: Doppler evaluation of the left lower extremity arterial flow waveforms and velocities. FINDINGS: Arterial waveforms in the right lower extremity are multiphasic in the left proximal femoral artery, left mid femoral artery, left peroneal artery, and left DPA. Monophasic in the left common femoral artery, left distal femoral artery, left popliteal artery, and left [employer]. Comments: elevated velocity in the left distal femoral artery and the popliteal artery could be related to stenosis. Elevated velocity could indicate impending stenosis in the proximal left femoral artery. IMPRESSION: Doppler ultrasound of the bilateral lower extremity arterial system shows mild to moderate risk of atherosclerotic occlusive disease in the left lower extremity.. Electronically signed by: Gaurav Silva MD 08/11/2020 2:32 PM [facility]
== END ==
LOC: US 14:04
PROVIDERS: ATTEND Obstetrics & Gynecology
DX: M79.89 Other specified soft tissue disorders (principal); I77.89 Other specified disorders of arteries and arterioles